=== PATIENT | female | born 1960 | race African-American/Black ===

== ENCOUNTER → 2016-10-17 | Outpatient (CLI) | payer BC | LOC: RAD 09:13 | PROVIDERS: ATTEND Specialist | DX: C90.00 Multiple myeloma not having achieved remission (principal) | CPT/HCPCS: 70553; A9577 ==

== ENCOUNTER → 2016-12-06 | Outpatient (CLI) | payer BC ==
--- NOTE | 2016-12-06 18:56 | XCELERA REPORT ---
[address] [address] Lower Extremity Venous Evaluation Name: RONY PERDOMO Age: 56 yrs Gender: Female : 1960 Patient Status: Preadmit Patient Location: Study Date: 12/06/2016 02:18 PM Procedure: Color flow and duplex imaging of the veins of the left lower extremity as well as the right Common Femoral vein. Reason For Study: LLE I82.449 Ordering Physician: RYANNE DELUCA Performed By: Leslee Hernandez Right Sided Venous Evaluation The right common femoral vein is fully compressible. Spontaneous and phasic flow is present in the right common femoral vein. Left Sided Venous Evaluation Abnormal vessel filling no compression or Colour flow from the Common Femoral vein to the Popliteal and Gastrocnemius vein.. Critical Findings Discussed withn Dr Deluca. Interpretation Summary Positive for acute and subacute DVT in the left lower extremity veins.. Extensive. The patient to go to Dr Deluca's office for treatment. : RYANNE DELUCA > Gigi Carlos
== END ==
LOC: SP 13:40
PROVIDERS: ATTEND Specialist
DX: I82.449 Acute embolism and thrombosis of unspecified tibial vein (principal)
CPT/HCPCS: 93971

== ENCOUNTER → 2017-01-15 | Outpatient (CLI) | payer BC | LOC: RAD 09:37 | PROVIDERS: ATTEND Specialist | DX: M54.5 Low back pain (principal); Z85.89 Personal history of malignant neoplasm of other organs and systems | CPT/HCPCS: 72070 ==

== ENCOUNTER 2017-03-29 07:49 | Outpatient (CLI) | payer BC, MEDICARE ==
[~2017-03-29 07:49] MED LIST: CARFILZOMIB IV PRN; DEXTROSE 5% IV PRN; NORMAL SALINE 250 ML IV PRN; WATER IV PRN
[2017-03-29 08:09] VITALS: BP 106/87
[2017-03-29 08:51] LABS: ABSOLUTE LYMPHOCYTES (AUTO) 0.9 10^3/uL (0.5-4.7); ABSOLUTE MONOCYTES (AUTO) 0.1 10^3/uL (0.1-1.4); ABSOLUTE NEUT (AUTO) 2.7 10^3/uL (1.7-8.2); BASOPHILS % (AUTO) 0.7 % (0-2); EOSINOPHILS % (AUTO) 0.7 % (0-6); HEMATOCRIT 31.1 % (36.0-47.0); HEMOGLOBIN 10.2 g/dL (12.0-15.5); HGB HCT DIFFERENCE -0.5; MEAN CORPUSCULAR HEMOGLOBIN 33.7 pg (27.0-33.4); MEAN CORPUSCULAR HGB CONC 32.7 g/dL (32.0-36.0); MEAN CORPUSCULAR VOLUME 103 fl (80-97); MONOCYTES % (AUTO) 3.9 % (3-13); RED BLOOD COUNT 3.02 10^6/uL (3.72-5.28); SEGMENTED NEUTROPHILS % (AUTO) 70.7 % (42-78); WHITE BLOOD COUNT 3.8 10^3/uL (4.0-10.5)
== END 2017-03-29 09:45 | disposition home or self-care (01) ==
LOC: II 07:49 → 5TH 08:00 → II 09:45
PROVIDERS: ATTEND Specialist
DX: Z51.11 Encounter for antineoplastic chemotherapy (principal); C90.00 Multiple myeloma not having achieved remission; D46.4 Refractory anemia, unspecified
CPT/HCPCS: 96409; 36415; 85025; J9047; 96413

== ENCOUNTER 2017-03-30 07:56 | Outpatient (CLI) | payer BC, MEDICARE ==
[2017-03-30 09:05] VITALS: BP 119/56
== END 2017-03-30 09:36 | disposition home or self-care (01) ==
LOC: II 07:56 → 5TH 07:58 → II 09:36
PROVIDERS: ATTEND Specialist
DX: Z51.11 Encounter for antineoplastic chemotherapy (principal); C90.00 Multiple myeloma not having achieved remission
CPT/HCPCS: 96413; 96360; J9047; 96409

== ENCOUNTER 2017-04-05 07:53 | Outpatient (CLI) | payer BC, MEDICARE ==
[2017-04-05 08:21] VITALS: BP 100/58
[2017-04-05 08:58] LABS: ABSOLUTE EOSINOPHILS # (AUTO) 0.1 10^3/uL (0.0-0.6); ABSOLUTE LYMPHOCYTES (AUTO) 0.5 10^3/uL (0.5-4.7); ABSOLUTE MONOCYTES (AUTO) 0.2 10^3/uL (0.1-1.4); ABSOLUTE NEUT (AUTO) 3.8 10^3/uL (1.7-8.2); BASOPHILS % (AUTO) 0.4 % (0-2); EOSINOPHILS % (AUTO) 1.5 % (0-6); HEMATOCRIT 32.7 % (36.0-47.0); HEMOGLOBIN 10.5 g/dL (12.0-15.5); HGB HCT DIFFERENCE -1.2; LYMPHOCYTES % (AUTO) 10.9 % (13-45); MEAN CORPUSCULAR HGB CONC 32.2 g/dL (32.0-36.0); MEAN CORPUSCULAR VOLUME 102 fl (80-97); MONOCYTES % (AUTO) 4.8 % (3-13); RED BLOOD COUNT 3.19 10^6/uL (3.72-5.28); RED CELL DISTRIBUTION WIDTH 19.1 % (11.5-14.0); SEGMENTED NEUTROPHILS % (AUTO) 82.4 % (42-78); WHITE BLOOD COUNT 4.6 10^3/uL (4.0-10.5)
== END 2017-04-05 09:43 | disposition home or self-care (01) ==
LOC: II 07:53 → 5TH 07:54 → II 09:43
PROVIDERS: ATTEND Specialist
DX: Z51.11 Encounter for antineoplastic chemotherapy (principal); C90.00 Multiple myeloma not having achieved remission
CPT/HCPCS: 96413; 36415; 85025; J9047; 96409

== ENCOUNTER 2017-04-06 07:53 | Outpatient (CLI) | payer BC, MEDICARE ==
[2017-04-06 08:26] VITALS: BP 127/73
== END 2017-04-06 09:36 | disposition home or self-care (01) ==
LOC: II 07:53 → 5TH 07:53 → II 09:36
PROVIDERS: ATTEND Specialist
DX: Z51.11 Encounter for antineoplastic chemotherapy (principal); C90.00 Multiple myeloma not having achieved remission
CPT/HCPCS: 96413; J9047; 96409

== ENCOUNTER → 2017-04-30 | Outpatient (CLI) | payer MEDICARE ==
--- NOTE | 2017-04-30 17:23 | RADIOLOGY REPORT (SQ) ---
EXAM DESCRIPTION: BONE SURVEY COMPLETE COMPLETED DATE/TIME: 04/30/2017 1:45 pm REASON FOR STUDY: MYELOMA C90.00 MULTIPLE MYELOMA NOT HAVING ACHIEVED REMISSION COMPARISON: Skeletal survey 03/17/2015, 08/31/2015 PET-CT 07/14/2016 TECHNIQUE: Images of the axial and proximal appendicular skeleton are obtained, along with lateral s kull and frontal chest films. LIMITATIONS: None. FINDINGS: AP CHEST: No bony findings. Lungs are clear. LATERAL SKULL: No worrisome bone lesions. AP BOTH HUMERI: No worrisome bone lesions. TWO-VIEW LUMBAR SPINE: No worrisome bone lesions. TWO-VIEW THORACIC SPINE: No worrisome bone lesions. TWO-VIEW CERVICAL SPINE: No worrisome bone lesions. Degenerative disc space loss of height at C5-6 AP PELVIS: No worrisome bone lesions. AP BOTH FEMURS: No worrisome bone lesions. OTHER: No other significant finding. IMPRESSION: NO WORRISOME BONE LESIONS. TECHNICAL DOCUMENTATION: JOB ID: [id number] [employer]- All Rights Reserved
== END ==
LOC: RAD 13:13
PROVIDERS: ATTEND Specialist
DX: C90.00 Multiple myeloma not having achieved remission (principal)
CPT/HCPCS: 77075

== ENCOUNTER → 2017-08-05 | Outpatient (CLI) | payer MEDICARE ==
--- NOTE | 2017-08-06 18:07 | RADIOLOGY REPORT (SQ) ---
EXAM DESCRIPTION: PET CT WHOLE BODY COMPLETED DATE/TIME: 08/05/2017 8:44 pm REASON FOR STUDY: MULTIPLE MYELOMA C90.00 MULTIPLE MYELOMA NOT HAVING ACHIEVED REMISSION COMPARISON: Skeletal survey 04/30/2017 PET-CT 07/14/2016 RADIONUCLIDE AND DOSE: 10.8 mCi F18 FDG The route of agent administration: Intravenous FASTING BLOOD SUGAR: 89 mg/dl CONTRAST TYPE AND DOSE: No CT contrast given. TECHNIQUE: Blood glucose level was verified. Above dose of FDG was injected intravenously. 2-D seg mented attenuation correction images were obtained through the entire body. Noncontrast CT images we re obtained for attenuation correction and fusion with emission images. CT images were performed wit hout oral or intravenous contrast and are not sensitive for parenchymal lesions. A series of overlap ping emission PET images were obtained. Images reviewed and manipulated at independent work station by the radiologist. Images stored on PACS. LIMITATIONS: None. FINDINGS: HEAD AND NECK: There is activity in the nasopharynx and bilateral pharyngeal tonsils lymph oid tissue, without discrete mass. Nasopharyngeal lymphoid tissue has SUV of 8. Bilateral pharyngea l tonsil activity ranges from 5.9-6.2 SUV. Multiple less than 5 mm short axis cervical hypermetabolic lymph nodes are present at the jugulodigas tric/ level 2 region with SUV ranging from 5 to 7.5. These are best shown on axial CT images 72-76. CHEST: No areas of abnormal metabolic activity in the chest. ABDOMEN AND PELVIS: There is increased activity without discrete mass along the gastric fundus and an trum, with SUV ranging from 6 to 6.6. LOWER EXTREMITIES: No areas of abnormal metabolic activity in the soft tissues of the lower extremiti es. BONES: No abnormal metabolic activity in the visualized skeleton. ADDITIONAL CT FINDINGS: Post cholecystectomy. OTHER: There is some activity in the tongue, vocal cords/larynx, bilateral forearms, and right thenar eminence likely related to motion after FDG injection. Liver background activity 2.1 SUV Blood pool background activity 1.7 SUV IMPRESSION: No skeletal activity worrisome for recurrent myeloma. Hypermetabolic bilateral cervical level 2 lymph nodes, hypermetabolic pharyngeal tonsils and nasophar yngeal lymphoid tissue Hypermetabolic gastric fundus and antrum TECHNICAL DOCUMENTATION: JOB ID: [id number]- All Rights Reserved
== END ==
LOC: RAD 17:43
PROVIDERS: ATTEND Internal Medicine Hematology & Oncology
DX: C90.00 Multiple myeloma not having achieved remission (principal)
CPT/HCPCS: 78816; A9552

== ENCOUNTER → 2017-08-13 | Outpatient (CLI) | payer MEDICARE ==
--- NOTE | 2017-08-17 09:09 | RADIOLOGY REPORT (SQ) ---
EXAM DESCRIPTION: MRI HEAD COMBO COMPLETED DATE/TIME: 08/13/2017 11:11 am REASON FOR STUDY: ABNORMAL FINDINGS ON DIAGNOSTIC IMAGING OF SKULL AND HEAD, NOT ELSEWHERE (R R93.0 ABNORMAL FINDINGS ON DX IMAGING OF SKULL AND HEAD, NEC C90.00 MULTIPLE MYELOMA NOT HAVING ACHIEVED REMISSION G50.1 ATYPICAL FACIAL PAIN COMPARISON: PET-CT 08/05/2017 MRI brain 10/17/2016 TECHNIQUE: Multiplanar imaging includes noncontrasted T1, T2, FLAIR, diffusion with ADC map and post gadolinium contrast T1 sequences. Images stored on PACS. CONTRAST TYPE AND DOSE: 15 mL Multihance. RENAL FUNCTION: GFR > 60. LIMITATIONS: None. FINDINGS: ANATOMY: No developmental anomalies. On axial T2 series 9, image 74, question redundant d istal parasellar ICA versus para clinoid ICA aneurysm. A [place] MRA exam is recommended fo r followup. Pituitary fossa normal. CSF SPACES: Normal in size and contour. No hemorrhage. CEREBRUM: Sulci and gyri normal in size and contour. Minimal spotty increased bifrontal and bipariet al white matter signal on FLAIR imaging, from minimal chronic small vessel ischemic change. No eviden ce of hemorrhage, mass, or extraaxial fluid collection. No abnormal enhancement post contrast. POSTERIOR FOSSA: No signal alteration. No hemorrhage. No edema, masses, or mass effect. Internal senait tory canals, cerebellopontine angles, mastoids normal. No enhancing lesions. No abnormal enhancement post contrast. DIFFUSION IMAGING: Negative for acute or subacute infarction. ORBITS: No masses. Globes normal. Stable mild bilateral proptosis compared to previous studies. PARANASAL SINUSES: No fluid levels. Mucosa normal. OTHER: There is fluid throughout the right middle ear cavity and mastoid air cells. Trace left masto id air cell fluid. Paranasal sinuses are clear. No definite lytic lesions are seen over the central skullbase, given history of myeloma IMPRESSION: Fluid throughout the right mastoid air cells and middle ear cavity. Minimal stable age-appropriate white matter disease. 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 Aneurysm could not entirely be excluded, [place] M[facility] exam recommended for followup. EVIDENCE OF ACUTE STROKE: NO. TECHNICAL DOCUMENTATION: JOB ID: [id number]- All Rights Reserved
== END ==
LOC: RAD 09:55
PROVIDERS: ATTEND Internal Medicine Hematology & Oncology
DX: C90.00 Multiple myeloma not having achieved remission (principal); R93.0 Abnormal findings on diagnostic imaging of skull and head, not elsewhere classified; G50.1 Atypical facial pain
CPT/HCPCS: 82565; 70553; A9577

== ENCOUNTER 2017-10-05 10:44 | Outpatient (CLI) | payer MEDICARE, MEDICAID ==
[2017-10-05] MEDS ORDERED: NORMAL SALINE 1000 ML 1,000 ML IV PRN (11:24)
[2017-10-05] MEDS ORDERED: ONDANSETRON HCL INJ/PF 4 MG/2 ML SDV IV PRN (11:25)
[2017-10-05 12:21] VITALS: BP 132/92
== END 2017-10-05 12:42 | disposition home or self-care (01) ==
LOC: II 10:44 → 5TH 11:30 → II 12:42
PROVIDERS: ATTEND Internal Medicine Hematology & Oncology
PROC: 3E0337Z Introduction of Electrolytic and Water Balance Substance into Peripheral Vein, Percutaneous Approach (ICD-10-PCS; principal; 2017-10-05)
DX: E86.0 Dehydration (principal); R11.0 Nausea; C90.00 Multiple myeloma not having achieved remission
CPT/HCPCS: 96375; 96360; J2405; 96361; 96374

== ENCOUNTER 2017-10-09 16:13 | Outpatient (CLI) | payer MEDICARE, MEDICAID ==
[2017-10-09 16:32] VITALS: BP 124/82
[2017-10-09] MEDS ORDERED: NORMAL SALINE 1000 ML 1,000 ML with POTASSIUM CHLORIDE 10 MEQ IV PRN ×2 (17:00)
== END 2017-10-09 17:54 | disposition home or self-care (01) ==
LOC: II 16:13 → 5TH 16:13 → II 17:02 → 5TH 17:02 → II 17:54
PROVIDERS: ATTEND Internal Medicine
PROC: 3E0337Z Introduction of Electrolytic and Water Balance Substance into Peripheral Vein, Percutaneous Approach (ICD-10-PCS; principal; 2017-10-09)
DX: E86.0 Dehydration (principal)
CPT/HCPCS: 96360; J3480; J7030

== ENCOUNTER 2017-10-16 14:12 | Inpatient (IN) | payer MEDICARE, MEDICAID ==
[2017-10-16] MEDS ORDERED: ONDANSETRON HCL INJ/PF 4 MG/2 ML SDV IV PRN (15:14)
[2017-10-16] MEDS ORDERED: ONDANSETRON 4 MG TAB.RAPDIS PO PRN (15:14)
[2017-10-16] MEDS ORDERED: ACETAMINOPHEN 325 MG TABLET PO PRN (15:14)
--- NOTE | 2017-10-16 16:22 | PDOC H&P ---
History of Present Illness Admission Date/PCP: 10/16/17 14:12 SRIRAM JIMENEZ MD Patient complains of: Diarrhea and abdominal pain. History of Present Illness: RONY PERDOMO is a 56 year old female with a history of multiple myeloma who has had problems with nausea vomiting and diarrhea since . She reports that she has had watery diarrhea since . She denies any melena. She has had mucus in her stools also. She does have abdominal pain associated with her bowel movements. It usually in the lower abdomen both right and left-sided. She also has pain in her right upper quadrant that is unrelated to eating but when she develops this pain does radiate into her right flank area. She also reports that she has had a foul smell to her stool and also has noticed grease floating on top of the water in the bowl. She has no history of pancreatic insufficiency and does not drink alcohol. The patient also has had nausea and vomiting but has been able to eat sometimes. The patient has not had any recent antibiotics but she has been immunosuppressed because of her multiple myeloma and has been on dexamethasone intermittently because of that. Patient also has a history of having a bone marrow transplant in 2013. 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 Endocrine Medical History: Reports: None Renal/ Medical History: Reports: None Malignancy Medical History: Reports: Other - Multiple myeloma Musculoskeltal Medical History: Reports: None Skin Medical History: Reports: None Psychiatric Medical History: Reports: Depression Hematology: Reports: Anemia, Other - Deep vein thrombosis December 2016 Infectious Medical History: Reports: Other Infectious History Note: Patient had shingles in the right T9-10 area Past Surgical History Past Surgical History: Reports: Cholecystectomy, Orthopedic Surgery, Tubal Ligation Social History Information Source: Patient Lives with: Family Smoking Status: Former Smoker Frequency of Alcohol Use: None Hx Recreational Drug Use: No Drugs: None Hx Prescription Drug Abuse: No - Advance Directive Resuscitation Status: Full Code Surrogate healthcare decision maker:: Her sister Caitlin is her healthcare power of insurance defense attorney Family History Family History: CAD, DM, Hypertension Family History: Mother at age 79 and had hypertension. Father at age 79 and had no chronic health problems. Parental Family History Reviewed: Yes Children Family History Reviewed: No Sibling(s) Family History Reviewed.: No Medication/Allergy Home Medications: Acyclovir [Acyclovir 400 mg Tablet] 400 mg PO DAILY 10/16/17 Apixaban [Eliquis 5 mg Tablet] 5 mg PO Q12 10/16/17 Diphenoxylate HCl/Atropine [Diphenoxylate-Atrop 2.5-0.025] 1 tab PO ASDIR PRN Duloxetine HCl [Cymbalta] 60 mg PO DAILY 10/16/17 Gabapentin [Neurontin 300 mg Capsule] 300 mg PO Q12 10/16/17 Oxycodone HCl [Oxycodone HCl 10 MG Tablet] 10 mg PO Q12HP PRN 10/16/17 Oxycodone HCl [Oxycontin Sr 40 mg Tablet] 40 mg PO Q12 10/16/17 Pantoprazole Sodium [Protonix] 40 mg PO Q12 10/16/17 Potassium Chloride [Klor-Con M20] 20 meq PO Q12 10/16/17 Allergies/Adverse Reactions: No Known Drug Allergies Allergy (Verified 03/24/14 10:16) Review of Systems Constitutional: ABSENT: chills, fever(s), headache(s), weight gain, weight loss Eyes: ABSENT: visual disturbances Ears: ABSENT: hearing changes Cardiovascular: ABSENT: chest pain, dyspnea on exertion, edema, orthropnea, palpitations Respiratory: ABSENT: cough, hemoptysis Gastrointestinal: PRESENT: as per HPI Genitourinary: ABSENT: dysuria, hematuria Musculoskeletal: ABSENT: joint swelling Integumentary: ABSENT: rash, wounds Neurological: ABSENT: abnormal gait, abnormal speech, confusion, dizziness, focal weakness, syncope Psychiatric: ABSENT: anxiety, depression Endocrine: ABSENT: cold intolerance, heat intolerance, polydipsia, polyuria Hematologic/Lymphatic: ABSENT: easy bleeding, easy bruising Physical Exam Vital Signs: Intake & Output 10/15/17 10/16/17 10/17/17 06:59 06:59 06:59 Weight 81.4 kg General appearance: PRESENT: no acute distress, well-developed, well-nourished Head exam: PRESENT: atraumatic, normocephalic Eye exam: PRESENT: conjunctiva pink, EOMI, PERRLA. ABSENT: scleral icterus Ear exam: PRESENT: normal external ear exam Mouth exam: PRESENT: moist, tongue midline Neck exam: ABSENT: carotid bruit, JVD, lymphadenopathy, thyromegaly Respiratory exam: PRESENT: clear to auscultation tai. ABSENT: rales, rhonchi, wheezes Cardiovascular exam: PRESENT: RRR. ABSENT: diastolic murmur, rubs, systolic murmur GI/Abdominal exam: PRESENT: normal bowel sounds, soft, tenderness - Diffuse tenderness worse in the right upper quadrant. ABSENT: distended, guarding, mass , organolmegaly, rebound Rectal exam: PRESENT: deferred Extremities exam: ABSENT: calf tenderness, clubbing, pedal edema Neurological exam: PRESENT: alert, awake, oriented to person, oriented to place , oriented to time, oriented to situation, CN II-XII grossly intact. ABSENT: motor sensory deficit Psychiatric exam: PRESENT: appropriate affect Skin exam: PRESENT: dry, intact, warm. ABSENT: cyanosis, rash Assessment & Plan - Diagnosis (1) Dehydration Is this a current diagnosis for this admission?: Yes Plan: Patient appears to be slightly dehydrated secondary to constant diarrhea along with nausea and vomiting. Will give IV fluids. (2) Colitis Is this a current diagnosis for this admission?: Yes Plan: Patient has been having diarrhea since . We will check a C. difficile toxin, stool cultures. We will empirically start on Cipro and Flagyl IV. If she continues to have diarrhea after this she will most likely need a colonoscopy. Given her diarrhea and the possibility of fat malabsorption is considered and we may do a 24 hour stool collection. (3) Abdominal pain Is this a current diagnosis for this admission?: Yes Plan: Patient is having pain both in her lower and upper abdomen. She reports that she has pain in the right upper quadrant that radiates through to her right CVA area. She has had shingles previously in this area with neuropathy however the possibility of a retained common bile duct stone is considered. She has had a cholecystectomy previously. Will get an MRCP to evaluate. If this is unrevealing and the pain continues will ask GI to evaluate when they are available. (4) Multiple myeloma Is this a current diagnosis for this admission?: Yes Plan: Patient is followed by Dr. jimenez. (5) DVT (deep venous thrombosis) Is this a current diagnosis for this admission?: Yes Plan: She was diagnosed in December 2016 with a DVT. She has been on Eliquis and we will continue with that. 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 She has been on Neurontin and Cymbalta. - Time Time Spent: 50 to 70 Minutes - Inpatient Certification Medical Necessity: Need For IV Fluids
[2017-10-16] MEDS ORDERED: OXYCODONE HCL IR 5 MG TABLET PO PRN (16:30)
[2017-10-16 17:06] LABS: ABSOLUTE EOSINOPHILS # (AUTO) 0.1 10^3/uL (0.0-0.6); ABSOLUTE MONOCYTES (AUTO) 0.5 10^3/uL (0.1-1.4); ABSOLUTE NEUT (AUTO) 3.6 10^3/uL (1.7-8.2); BASOPHILS % (AUTO) 0.9 % (0-2); EOSINOPHILS % (AUTO) 1.1 % (0-6); LYMPHOCYTES % (AUTO) 19.5 % (13-45); MEAN CORPUSCULAR HEMOGLOBIN 34.2 pg (27.0-33.4); MEAN CORPUSCULAR HGB CONC 33.4 g/dL (32.0-36.0); MEAN CORPUSCULAR VOLUME 103 fl (80-97); MONOCYTES % (AUTO) 9.1 % (3-13); PLATELET COUNT 318 10^3/uL (150-450); RED BLOOD COUNT 3.22 10^6/uL (3.72-5.28); RED CELL DISTRIBUTION WIDTH 17.3 % (11.5-14.0); SEGMENTED NEUTROPHILS % (AUTO) 69.4 % (42-78); TOTAL CELLS COUNTED % (AUTO) 100 %; WHITE BLOOD COUNT 5.1 10^3/uL (4.0-10.5)
[2017-10-16 17:39] LABS: AMYLASE 107 U/L (30-110); ANION GAP 14 (5-19); BLOOD UREA NITROGEN 11 mg/dL (7-20); CALCIUM 9.9 mg/dL (8.4-10.2); CARBON DIOXIDE 23 mmol/L (22-30); CHLORIDE 108 mmol/L (98-107); GLUCOSE 83 mg/dL (75-110); LIPASE 362.2 U/L (23-300); POTASSIUM 3.3 mmol/L (3.6-5.0); SODIUM 144.8 mmol/L (137-145)
[2017-10-16] MEDS ORDERED: ACYCLOVIR 200 MG CAPSULE PO ONE (18:00)
[2017-10-16] MEDS ORDERED: DULOXETINE HCL 30 MG CAPSULE.DR PO ONE (18:00)
[2017-10-16] MEDS ORDERED: CIPROFLOXACIN 400 MG/D5W RTU 400 MG/200 ML RTUPB IV SCH (18:00)
[2017-10-16] MEDS: METRONIDAZOLE 500 MG/NS RTU 100 ML IV SCH (18:51)
[2017-10-16] MEDS: LANSOPRAZOLE 30 MG TAB.RAP.DR PO SCH (18:52)
[2017-10-16] MEDS ORDERED: (PENDING PHARMACY ID) (Potassium Chloride [Klor-Con M20] 20 MEQ) PO SCH (22:00)
[2017-10-16] MEDS ORDERED: LANSOPRAZOLE 30 MG TAB.RAP.DR PO SCH (22:00)
[2017-10-16] MEDS: APIXABAN 5 MG TABLET PO SCH (22:34)
[2017-10-16] MEDS: GABAPENTIN 300 MG CAPSULE PO SCH (22:35)
[2017-10-16] MEDS: POTASSIUM CHLORIDE 10 MEQ TABLET.SA PO SCH (22:35)
[2017-10-16] MEDS: OXYCODONE HCL SR 40 MG TABLET PO SCH (22:35)
[2017-10-16] MEDS: FAMOTIDINE 20 MG TABLET PO SCH (22:35)
[2017-10-16] MEDS: CIPROFLOXACIN 400 MG/D5W RTU 400 MG/200 ML RTUPB IV SCH (22:36)
[2017-10-17] MEDS: METRONIDAZOLE 500 MG/NS RTU 100 ML IV SCH ×4 (00:14→18:09)
[2017-10-17] MEDS: LANSOPRAZOLE 30 MG TAB.RAP.DR PO SCH ×2 (05:43→18:09)
[2017-10-17 05:57] LABS: ANION GAP 10 (5-19); BLOOD UREA NITROGEN 9 mg/dL (7-20); CALCIUM 8.9 mg/dL (8.4-10.2); CARBON DIOXIDE 24 mmol/L (22-30); CHLORIDE 108 mmol/L (98-107); GLUCOSE 95 mg/dL (75-110); POTASSIUM 3.4 mmol/L (3.6-5.0); SODIUM 142.4 mmol/L (137-145)
--- NOTE | 2017-10-17 08:07 | PDOC CONSULTATION ---
Consultation Consult Date: 10/17/17 Consult reason:: Hematology/Oncology Consultation was requested for patient with Multiple Myeloma and vomiting with diarrhea History of Present Illness Admission Date/PCP: 10/16/17 14:12 SRIRAM GRACE MD History of Present Illness: RONY PERDOMO is a 56 year old female with a history of multiple myeloma who has had problems with nausea vomiting and diarrhea since . She reports that she has had watery diarrhea since . She denies any melena. She has had mucus in her stools also. She does have abdominal pain associated with her bowel movements. It usually in the lower abdomen both right and left-sided. She also has pain in her right upper quadrant that is unrelated to eating but when she develops this pain does radiate into her right flank area. She also reports that she has had a foul smell to her stool and also has noticed grease floating on top of the water in the bowl. She has no history of pancreatic insufficiency and does not drink alcohol. The patient also has had nausea and vomiting but has been able to eat sometimes. The patient has not had any recent antibiotics but she has been immunosuppressed because of her multiple myeloma and has been on dexamethasone intermittently because of that. Patient also has a history of having a bone marrow transplant in 2013. This morning, she states that she is feeling a little better. She did not eat much last night and vomited x 1. Her abdominal pain is improved. 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 Endocrine Medical History: Reports: None Renal/ Medical History: Reports: None Malignancy Medical History: Reports: Other - Multiple myeloma Musculoskeltal Medical History: Reports: None Skin Medical History: Reports: None Psychiatric Medical History: Reports: Depression Hematology: Reports: Anemia, Other - Deep vein thrombosis December 2016 Infectious Medical History: Reports: Other Past Surgical History Past Surgical History: Reports: Cholecystectomy, Orthopedic Surgery, Tubal Ligation Social History Lives with: Family Smoking Status: Former Smoker Frequency of Alcohol Use: None Hx Recreational Drug Use: No Drugs: None Hx Prescription Drug Abuse: No - Advance Directive Resuscitation Status: Full Code Family History Family History: CAD, DM, Hypertension Parental Family History Reviewed: Yes - Mother with RA. Father with CAD. Children Family History Reviewed: No Sibling(s) Family History Reviewed.: Yes - CAD, DM in sisters. Medication/Allergy Home Medications: Acyclovir [Acyclovir 400 mg Tablet] 400 mg PO DAILY 10/16/17 Apixaban [Eliquis 5 mg Tablet] 5 mg PO Q12 10/16/17 Diphenoxylate HCl/Atropine [Diphenoxylate-Atrop 2.5-0.025] 1 tab PO ASDIR PRN Duloxetine HCl [Cymbalta] 60 mg PO DAILY 10/16/17 Gabapentin [Neurontin 300 mg Capsule] 300 mg PO Q12 10/16/17 Oxycodone HCl [Oxycodone HCl 10 MG Tablet] 10 mg PO Q12HP PRN 10/16/17 Oxycodone HCl [Oxycontin Sr 40 mg Tablet] 40 mg PO Q12 10/16/17 Pantoprazole Sodium [Protonix] 40 mg PO Q12 10/16/17 Potassium Chloride [Klor-Con M20] 20 meq PO Q12 10/16/17 Allergies/Adverse Reactions: No Known Drug Allergies Allergy (Verified 03/24/14 10:16) Review of Systems Constitutional: ABSENT: fever(s), headache(s) Eyes: ABSENT: visual disturbances Ears: ABSENT: hearing changes Nose, Mouth, and Throat: ABSENT: sore throat Cardiovascular: ABSENT: chest pain, dyspnea on exertion Respiratory: PRESENT: cough Gastrointestinal: PRESENT: abdominal pain, diarrhea, nausea, vomiting Genitourinary: ABSENT: dysuria Neurological: ABSENT: confusion, numbness Psychiatric: PRESENT: depression. ABSENT: anxiety Physical Exam Vital Signs: Temp Pulse Resp BP Pulse Ox 98.7 F 93 16 124/66 100 10/16/17 23:49 10/16/17 23:49 10/16/17 23:49 10/16/17 23:49 10/16/17 23:49 Intake & Output 10/16/17 10/17/17 10/18/17 06:59 06:59 06:59 Intake Total 1650 Balance 1650 Weight 81.4 kg General appearance: PRESENT: no acute distress, well-developed, well-nourished Exam: Tall, female. Head exam: PRESENT: atraumatic Eye exam: PRESENT: EOMI, PERRLA Mouth exam: PRESENT: other - Thrush Throat exam: ABSENT: post pharyngeal erythema Neck exam: ABSENT: lymphadenopathy, tenderness Respiratory exam: PRESENT: clear to auscultation tai, unlabored Cardiovascular exam: PRESENT: RRR. ABSENT: systolic murmur GI/Abdominal exam: PRESENT: normal bowel sounds, soft. ABSENT: tenderness Extremities exam: ABSENT: pedal edema Musculoskeletal exam: PRESENT: ambulatory, full ROM Neurological exam: PRESENT: alert, awake, oriented to person, oriented to place , oriented to time, oriented to situation Psychiatric exam: PRESENT: appropriate affect. ABSENT: agitated Skin exam: PRESENT: normal color Results Laboratory Results: 10/16/17 16:35 10/17/17 04:32 10/16/17 10/16/17 10/16/17 16:35 16:35 22:24 WBC 5.1 RBC 3.22 L Hgb 11.0 L Hct 33.0 L MCV 103 H MCH 34.2 H MCHC 33.4 RDW 17.3 H Plt Count 318 Seg Neutrophils % 69.4 Lymphocytes % 19.5 Monocytes % 9.1 Eosinophils % 1.1 Basophils % 0.9 Absolute Neutrophils 3.6 Absolute Lymphocytes 1.0 Absolute Monocytes 0.5 Absolute Eosinophils 0.1 Absolute Basophils 0.0 Sodium 144.8 Potassium 3.3 L Chloride 108 H Carbon Dioxide 23 Anion Gap 14 BUN 11 Creatinine 0.78 Est GFR ( Amer) > 60 Est GFR (Non-Af Amer) > 60 Glucose 83 Calcium 9.9 Amylase 107 Lipase 362.2 H Stool for White Cells NO WBCs SEEN 10/17/17 04:32 WBC RBC Hgb Hct MCV MCH MCHC RDW Plt Count Seg Neutrophils % Lymphocytes % Monocytes % Eosinophils % Basophils % Absolute Neutrophils Absolute Lymphocytes Absolute Monocytes Absolute Eosinophils Absolute Basophils Sodium 142.4 Potassium 3.4 L Chloride 108 H Carbon Dioxide 24 Anion Gap 10 BUN 9 Creatinine 0.78 Est GFR ( Amer) > 60 Est GFR (Non-Af Amer) > 60 Glucose 95 Calcium 8.9 Amylase Lipase Stool for White Cells Assessment & Plan - Diagnosis (1) Multiple myeloma Is this a current diagnosis for this admission?: Yes Plan: She has been responding well to treatment thus far. This is currently on hold during this admission. (2) Dehydration Is this a current diagnosis for this admission?: Yes Plan: Improving with IV fluids. (3) Thrush, oral Is this a current diagnosis for this admission?: Yes Plan: I would start nystatin swish and swallow, or IV diflucan. She has recently been on antibiotics and steroids and has a supressed immune system due to her myeloma. (4) Pancreatitis Is this a current diagnosis for this admission?: Yes Plan: This appears to be mild. Await MRCP results. I will change her diet to clear liquids for now. Give her bowels a chance to rest. (5) Diarrhea Is this a current diagnosis for this admission?: Yes Plan: C. dif was negative. Await full stool cultures. Unsure if the Cipro will be of benefit given she had a course of Levaquin just prior to admission, but will await further studies. Continue supportive care. - Plan Summary Plan Summary: I will continue to follow her with you. Please call with any concerns.
--- NOTE | 2017-10-17 10:08 | RADIOLOGY REPORT (SQ) ---
EXAM DESCRIPTION: MRI ABDOMEN WITHOUT COMPLETED DATE/TIME: 10/16/2017 9:36 pm REASON FOR STUDY: need mrcp for abd pain COMPARISON: Head CT 2017. TECHNIQUE: Noncontrast MRCP. Source and MIP images reviewed. LIMITATIONS: None. FINDINGS: GALLBLADDER: Surgically absent. INTRAHEPATIC DUCTS: Nondilated. EXTRAHEPATIC DUCTS: Common duct is normal caliber. No dilatation of the pancreatic duct. No ductal filling defects noted. PANCREAS: Generally homogeneous, no gross mass or significant signal alteration. No surrounding infl ammatory changes or fluid. Pancreatic duct is normal. LIVER, SPLEEN, KIDNEYS, ADRENALS: No significant abnormality. VESSELS: No evidence of aneurysm. Grossly appropriate flow voids in the major vascular structures. LUNG BASES: Grossly clear. OTHER: No other significant finding. IMPRESSION: NORMAL HEPATOBILIARY SYSTEM. NO STONES OR COMMON DUCT ABNORMALITIES. TECHNICAL DOCUMENTATION: JOB ID: [id number] [employer]- All Rights Reserved
[2017-10-17] MEDS: APIXABAN 5 MG TABLET PO SCH (10:28)
[2017-10-17] MEDS: GABAPENTIN 300 MG CAPSULE PO SCH ×2 (10:28→21:32)
[2017-10-17] MEDS: FAMOTIDINE 20 MG TABLET PO SCH ×2 (10:28→21:32)
[2017-10-17] MEDS: CIPROFLOXACIN 400 MG/D5W RTU 400 MG/200 ML RTUPB IV SCH ×2 (10:28→21:32)
[2017-10-17] MEDS: POTASSIUM CHLORIDE 10 MEQ TABLET.SA PO SCH ×2 (10:28→21:32)
[2017-10-17] MEDS: OXYCODONE HCL SR 40 MG TABLET PO SCH ×2 (10:28→21:32)
[2017-10-17] MEDS: DULOXETINE HCL 30 MG CAPSULE.DR PO SCH (10:28)
[2017-10-17] MEDS: ACYCLOVIR 200 MG CAPSULE PO SCH (10:29)
--- NOTE | 2017-10-17 12:29 | PDOC CONSULTATION ---
Consultation Consult Date: 10/17/17 Attending physician:: CONCHITA JOY Consult reason:: 1. Change in bowel habits; diarrhea multiple times a day since the latter part of August. 2 abdominal pain History of Present Illness Admission Date/PCP: 10/16/17 14:12 SRIRAM GRACE MD History of Present Illness: I am asked to see this patient by the hospitalist service. Patient has had a cholecystectomy in the past and about the time of giving started to develop chronic diarrhea. It has not been able to be treated with the usual [id number]-[id number] medications. She does have multiple myeloma she is status post bone marrow transplant. This was done at [place] several years ago. She does remember diarrhea during her stay at that point in time. I do not have records but that sounds as though she had neutropenia and probably had neutropenic diarrhea. Possibly even typhylitis. She states that since that time she has had multiple episodes. She denies any blood. She does have accompanying abdominal pain both in the epigastric region as well as in the lower regions of her abdomen on both sides. There is otherwise no nausea or vomiting. She denies any family history of colitis. Patient denies any other surgeries. She is on chemotherapy for her multiple myeloma. She has been on that for a while and her diarrhea has just recently started. She is referred for possible GI workup. 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 Endocrine Medical History: Reports: None Renal/ Medical History: Reports: None Malignancy Medical History: Reports: Other - Multiple myeloma Musculoskeltal Medical History: Reports: None Skin Medical History: Reports: None Psychiatric Medical History: Reports: Depression Hematology: Reports: Anemia, Other - Deep vein thrombosis December 2016 Infectious Medical History: Reports: Other Past Surgical History Past Surgical History: Reports: Cholecystectomy, Orthopedic Surgery, Tubal Ligation Social History Lives with: Family Smoking Status: Former Smoker Frequency of Alcohol Use: None Hx Recreational Drug Use: No Drugs: None Hx Prescription Drug Abuse: No - Advance Directive Resuscitation Status: Full Code Family History Family History: CAD, DM, Hypertension Parental Family History Reviewed: Yes Children Family History Reviewed: Unknown Sibling(s) Family History Reviewed.: Unknown Medication/Allergy Home Medications: Acyclovir [Acyclovir 400 mg Tablet] 400 mg PO DAILY 10/16/17 Apixaban [Eliquis 5 mg Tablet] 5 mg PO Q12 10/16/17 Diphenoxylate HCl/Atropine [Diphenoxylate-Atrop 2.5-0.025] 1 tab PO ASDIR PRN Duloxetine HCl [Cymbalta] 60 mg PO DAILY 10/16/17 Gabapentin [Neurontin 300 mg Capsule] 300 mg PO Q12 10/16/17 Oxycodone HCl [Oxycodone HCl 10 MG Tablet] 10 mg PO Q12HP PRN 10/16/17 Oxycodone HCl [Oxycontin Sr 40 mg Tablet] 40 mg PO Q12 10/16/17 Pantoprazole Sodium [Protonix] 40 mg PO Q12 10/16/17 Potassium Chloride [Klor-Con M20] 20 meq PO Q12 10/16/17 Allergies/Adverse Reactions: No Known Drug Allergies Allergy (Verified 03/24/14 10:16) Review of Systems Constitutional: ABSENT: fever(s), headache(s), night sweats, weakness Eyes: ABSENT: visual disturbances Ears: ABSENT: hearing changes Nose, Mouth, and Throat: ABSENT: mouth pain, sore throat Cardiovascular: ABSENT: edema, orthropnea, palpitations Respiratory: ABSENT: dyspnea, hemoptysis Gastrointestinal: PRESENT: abdominal pain, diarrhea. ABSENT: coffee ground emesis, dysphagia, hematochezia Genitourinary: ABSENT: dysuria, hematuria Musculoskeletal: ABSENT: deformity, joint swelling Integumentary: ABSENT: lesions, pruritus Neurological: ABSENT: syncope, tingling, tremor(s), vertigo Endocrine: ABSENT: polydipsia, polyphagia, polyuria Hematologic/Lymphatic: ABSENT: easy bruising Physical Exam Vital Signs: Temp Pulse Resp BP Pulse Ox 97.9 F 72 16 112/68 99 10/17/17 08:41 10/17/17 08:41 10/17/17 08:41 10/17/17 08:41 10/17/17 08:41 Intake & Output 10/16/17 10/17/17 10/18/17 06:59 06:59 06:59 Intake Total 1650 Balance 1650 Weight 81.4 kg General appearance: PRESENT: no acute distress, well-developed, well-nourished Head exam: PRESENT: atraumatic, normocephalic Eye exam: PRESENT: EOMI, PERRLA. ABSENT: nystagmus, periorbital swelling, scleral icterus Mouth exam: PRESENT: moist Throat exam: ABSENT: tonsillar exudate, tonsillogmegaly Neck exam: ABSENT: meningismus, tenderness, thyromegaly Respiratory exam: PRESENT: symmetrical, unlabored. ABSENT: tachypnea, wheezes Cardiovascular exam: PRESENT: RRR, +S1, +S2 GI/Abdominal exam: PRESENT: soft. ABSENT: Mathur's sign, rebound, rigid, tenderness Gentrourinary exam: ABSENT: lesions Extremities exam: ABSENT: joint swelling Musculoskeletal exam: PRESENT: full ROM Neurological exam: PRESENT: oriented to time, oriented to situation, reflexes normal, CN II-XII grossly intact Psychiatric exam: PRESENT: appropriate affect Skin exam: PRESENT: normal color. ABSENT: mottled, pallor, urticaria, vesicles Results Laboratory Results: 10/16/17 16:35 10/17/17 04:32 10/16/17 10/16/17 10/16/17 16:35 16:35 22:24 WBC 5.1 RBC 3.22 L Hgb 11.0 L Hct 33.0 L MCV 103 H MCH 34.2 H MCHC 33.4 RDW 17.3 H Plt Count 318 Seg Neutrophils % 69.4 Lymphocytes % 19.5 Monocytes % 9.1 Eosinophils % 1.1 Basophils % 0.9 Absolute Neutrophils 3.6 Absolute Lymphocytes 1.0 Absolute Monocytes 0.5 Absolute Eosinophils 0.1 Absolute Basophils 0.0 Sodium 144.8 Potassium 3.3 L Chloride 108 H Carbon Dioxide 23 Anion Gap 14 BUN 11 Creatinine 0.78 Est GFR ( Amer) > 60 Est GFR (Non-Af Amer) > 60 Glucose 83 Calcium 9.9 Amylase 107 Lipase 362.2 H Stool for White Cells NO WBCs SEEN 10/17/17 04:32 WBC RBC Hgb Hct MCV MCH MCHC RDW Plt Count Seg Neutrophils % Lymphocytes % Monocytes % Eosinophils % Basophils % Absolute Neutrophils Absolute Lymphocytes Absolute Monocytes Absolute Eosinophils Absolute Basophils Sodium 142.4 Potassium 3.4 L Chloride 108 H Carbon Dioxide 24 Anion Gap 10 BUN 9 Creatinine 0.78 Est GFR ( Amer) > 60 Est GFR (Non-Af Amer) > 60 Glucose 95 Calcium 8.9 Amylase Lipase Stool for White Cells Impressions: Abdomen MRI 10/16/17 00:00 IMPRESSION: NORMAL HEPATOBILIARY SYSTEM. NO STONES OR COMMON DUCT ABNORMALITIES. Assessment & Plan - Diagnosis (1) Abdominal pain Is this a current diagnosis for this admission?: Yes Plan: patient could have possible peptic ulcer disease will need EGD Risks, benefits and alternatives are discussed with the patient in detail further recommendations to follow patient is on chronic pain medication she will need Propofol sedation (2) Anemia Is this a current diagnosis for this admission?: Yes Plan: likely due to her multiple myeloma will rule out GI bleed (3) Diarrhea Is this a current diagnosis for this admission?: Yes Plan: will need colonoscopy rule out for collagenous, lymphocytic or microscopic colitis Risks, benefits and alternatives are discussed with the patient in detail and she is willing to proceed. She is on Eliquis that needs to be stopped today. - Time Time Spent: 50 to 70 Minutes
[2017-10-17] MEDS ORDERED: POLYETHYLENE GLYCOL 3350 POWDER 17 GM/1 PACKET PO PRN (14:27)
--- NOTE | 2017-10-17 15:29 | PDOC PROGRESS REPORT ---
Subjective Progress Note for:: 10/17/17 Subjective:: Patient reports that she continues to have diarrhea but her abdominal pain has improved. Reason For Visit: DEHYDRATION,MULTIPLE MYELOMA Physical Exam Vital Signs: Temp Pulse Resp BP Pulse Ox 97.9 F 75 18 111/71 100 10/17/17 11:34 10/17/17 11:34 10/17/17 11:34 10/17/17 11:34 10/17/17 11:34 Intake & Output 10/16/17 10/17/17 10/18/17 06:59 06:59 06:59 Intake Total 1650 Balance 1650 Weight 81.4 kg General appearance: PRESENT: no acute distress Eye exam: PRESENT: conjunctiva pink. ABSENT: scleral icterus Mouth exam: PRESENT: moist, tongue midline Neck exam: ABSENT: JVD Respiratory exam: PRESENT: clear to auscultation tai. ABSENT: rales, rhonchi, wheezes Cardiovascular exam: PRESENT: RRR. ABSENT: diastolic murmur, rubs, systolic murmur GI/Abdominal exam: PRESENT: normal bowel sounds, soft. ABSENT: distended, guarding, mass, organolmegaly, rebound, tenderness Extremities exam: ABSENT: calf tenderness, clubbing, pedal edema Neurological exam: PRESENT: alert, awake, oriented to person, oriented to place , oriented to time, oriented to situation, CN II-XII grossly intact. ABSENT: motor sensory deficit Psychiatric exam: PRESENT: appropriate affect Skin exam: PRESENT: dry, intact, warm. ABSENT: cyanosis, rash Results Laboratory Results: 10/16/17 16:35 10/17/17 04:32 10/16/17 10/16/17 10/16/17 16:35 16:35 22:24 WBC 5.1 RBC 3.22 L Hgb 11.0 L Hct 33.0 L MCV 103 H MCH 34.2 H MCHC 33.4 RDW 17.3 H Plt Count 318 Seg Neutrophils % 69.4 Lymphocytes % 19.5 Monocytes % 9.1 Eosinophils % 1.1 Basophils % 0.9 Absolute Neutrophils 3.6 Absolute Lymphocytes 1.0 Absolute Monocytes 0.5 Absolute Eosinophils 0.1 Absolute Basophils 0.0 Sodium 144.8 Potassium 3.3 L Chloride 108 H Carbon Dioxide 23 Anion Gap 14 BUN 11 Creatinine 0.78 Est GFR ( Amer) > 60 Est GFR (Non-Af Amer) > 60 Glucose 83 Calcium 9.9 Amylase 107 Lipase 362.2 H Stool for White Cells NO WBCs SEEN 10/17/17 04:32 WBC RBC Hgb Hct MCV MCH MCHC RDW Plt Count Seg Neutrophils % Lymphocytes % Monocytes % Eosinophils % Basophils % Absolute Neutrophils Absolute Lymphocytes Absolute Monocytes Absolute Eosinophils Absolute Basophils Sodium 142.4 Potassium 3.4 L Chloride 108 H Carbon Dioxide 24 Anion Gap 10 BUN 9 Creatinine 0.78 Est GFR ( Amer) > 60 Est GFR (Non-Af Amer) > 60 Glucose 95 Calcium 8.9 Amylase Lipase Stool for White Cells Impressions: Abdomen MRI 10/16/17 00:00 IMPRESSION: NORMAL HEPATOBILIARY SYSTEM. NO STONES OR COMMON DUCT ABNORMALITIES. Assessment & Plan - Diagnosis (1) Dehydration Is this a current diagnosis for this admission?: Yes Plan: Secondary to diarrhea. This is improving. (2) Colitis Is this a current diagnosis for this admission?: Yes Plan: Patient has been having diarrhea since . C. difficile was negative. Stool cultures are pending. GI has evaluated the patient and will perform an upper and lower endoscopy. MRCP was unremarkable. Given her diarrhea and the possibility of fat malabsorption is considered and we may do a 24 hour stool collection. (3) Abdominal pain Is this a current diagnosis for this admission?: Yes Plan: Patient is having pain both in her lower and upper abdomen. She reports that she has pain in the right upper quadrant that radiates through to her right CVA area. She has had shingles previously in this area with neuropathy. The possibility of a retained common bile duct has been ruled out given the MRCP that is normal. GI has evaluated the patient and will perform an upper and lower endoscopy. (4) Multiple myeloma Is this a current diagnosis for this admission?: Yes Plan: Patient is followed by Dr. jimenez. (5) DVT (deep venous thrombosis) Is this a current diagnosis for this admission?: Yes Plan: She was diagnosed in December 2016 with a DVT. She has been on Eliquis. Will stop that in anticipation of endoscopy. Will start after the endoscopies are finished (6) Bone marrow replaced by transplant Is this a current diagnosis for this admission?: Yes (7) Anemia Is this a current diagnosis for this admission?: Yes (8) Neuropathy Is this a current diagnosis for this admission?: Yes Plan: Patient has neuropathic pain in the right T9-10 area. She has been on Neurontin and Cymbalta. - Time Time Spent with patient: 25-34 minutes - Inpatient Certification Medical Necessity: Need For IV Fluids, Need for IV Antibiotics
[2017-10-17] MEDS ORDERED: BISACODYL 5 MG TABEC PO ONE ×2 (18:00→21:00)
[2017-10-18] MEDS: METRONIDAZOLE 500 MG/NS RTU 100 ML IV SCH ×4 (00:14→18:31)
[2017-10-18] MEDS: NORMAL SALINE 1000 ML 1,000 ML IV PRN ×2 (02:27→18:31)
[2017-10-18 04:32] LABS: ABSOLUTE EOSINOPHILS # (AUTO) 0.1 10^3/uL (0.0-0.6); ABSOLUTE LYMPHOCYTES (AUTO) 0.5 10^3/uL (0.5-4.7); ABSOLUTE MONOCYTES (AUTO) 0.3 10^3/uL (0.1-1.4); ABSOLUTE NEUT (AUTO) 2.6 10^3/uL (1.7-8.2); BASOPHILS % (AUTO) 0.6 % (0-2); HEMATOCRIT 26.7 % (36.0-47.0); LYMPHOCYTES % (AUTO) 14.2 % (13-45); MEAN CORPUSCULAR HEMOGLOBIN 34.8 pg (27.0-33.4); MEAN CORPUSCULAR HGB CONC 33.7 g/dL (32.0-36.0); MEAN CORPUSCULAR VOLUME 103 fl (80-97); MONOCYTES % (AUTO) 8.6 % (3-13); PLATELET COUNT 218 10^3/uL (150-450); RED BLOOD COUNT 2.58 10^6/uL (3.72-5.28); RED CELL DISTRIBUTION WIDTH 16.9 % (11.5-14.0); SEGMENTED NEUTROPHILS % (AUTO) 74.6 % (42-78); TOTAL CELLS COUNTED % (AUTO) 100 %; WHITE BLOOD COUNT 3.5 10^3/uL (4.0-10.5)
[2017-10-18 04:42] LABS: ANION GAP 7 (5-19); BLOOD UREA NITROGEN 3 mg/dL (7-20); CALCIUM 7.7 mg/dL (8.4-10.2); CARBON DIOXIDE 27 mmol/L (22-30); CHLORIDE 108 mmol/L (98-107); GLUCOSE 94 mg/dL (75-110); POTASSIUM 3.8 mmol/L (3.6-5.0); SODIUM 141.6 mmol/L (137-145)
[2017-10-18] MEDS: LANSOPRAZOLE 30 MG TAB.RAP.DR PO SCH ×2 (05:09→18:31)
[2017-10-18] MEDS ORDERED: PROPOFOL INJ 200 MG/20 ML VIAL IV ONE ×2 (09:08→10:17)
[2017-10-18] MEDS ORDERED: MIDAZOLAM 2 MG/2 ML INJ ONE (09:08)
[2017-10-18] MEDS ORDERED: FLUCONAZOLE 200 MG/NS RTU 100 ML IV SCH (10:00)
[2017-10-18] MEDS ORDERED: PROMETHAZINE HCL INJ 25 MG/1 ML VIAL IV PRN (10:09)
[2017-10-18] MEDS ORDERED: MEPERIDINE HCL/PF INJ 25 MG/1 ML DISP.SYRIN IV PRN (10:09)
[2017-10-18] MEDS ORDERED: DIPHENHYDRAMINE HCL 50 MG/ML VIAL IV PRN (10:09)
[2017-10-18] MEDS ORDERED: ONDANSETRON HCL INJ/PF 4 MG/2 ML SDV IV PRN (10:09)
[2017-10-18] MEDS ORDERED: OXYCODONE-ACETAMINOPHEN 5-325 MG TABLET PO PRN (10:09)
--- NOTE | 2017-10-18 10:48 | PDOC PROGRESS REPORT ---
Subjective Progress Note for:: 10/18/17 Subjective:: Patient reports less diarrhea and less abdominal pain today. The patient had her upper and lower endoscopy this morning with GI and no abnormalities were found. Reason For Visit: DEHYDRATION,MULTIPLE MYELOMA Physical Exam Vital Signs: Temp Pulse Resp BP Pulse Ox 98.2 F 78 15 110/67 100 10/18/17 08:43 10/18/17 08:43 10/18/17 08:43 10/18/17 08:43 10/18/17 08:43 Intake & Output 10/17/17 10/18/17 10/19/17 06:59 06:59 06:59 Intake Total 1650 3237 Balance 1650 3237 Weight 81.4 kg 81.4 kg General appearance: PRESENT: no acute distress Eye exam: PRESENT: conjunctiva pink. ABSENT: scleral icterus Mouth exam: PRESENT: moist, tongue midline Neck exam: ABSENT: JVD Respiratory exam: PRESENT: clear to auscultation tai. ABSENT: rales, rhonchi, wheezes Cardiovascular exam: PRESENT: RRR. ABSENT: diastolic murmur, rubs, systolic murmur GI/Abdominal exam: PRESENT: normal bowel sounds, soft. ABSENT: distended, guarding, mass, organolmegaly, rebound, tenderness Extremities exam: ABSENT: calf tenderness, clubbing, pedal edema Neurological exam: PRESENT: alert, awake, oriented to person, oriented to place , oriented to time, oriented to situation, CN II-XII grossly intact. ABSENT: motor sensory deficit Psychiatric exam: PRESENT: appropriate affect Skin exam: PRESENT: dry, intact, warm. ABSENT: cyanosis, rash Results Laboratory Results: 10/18/17 04:01 10/18/17 04:01 10/18/17 10/18/17 04:01 04:01 WBC 3.5 L RBC 2.58 L Hgb 9.0 L Hct 26.7 L MCV 103 H MCH 34.8 H MCHC 33.7 RDW 16.9 H Plt Count 218 Seg Neutrophils % 74.6 Lymphocytes % 14.2 Monocytes % 8.6 Eosinophils % 2.0 Basophils % 0.6 Absolute Neutrophils 2.6 Absolute Lymphocytes 0.5 Absolute Monocytes 0.3 Absolute Eosinophils 0.1 Absolute Basophils 0.0 Sodium 141.6 Potassium 3.8 Chloride 108 H Carbon Dioxide 27 Anion Gap 7 BUN 3 L Creatinine 0.67 Est GFR ( Amer) > 60 Est GFR (Non-Af Amer) > 60 Glucose 94 Calcium 7.7 L Impressions: Abdomen MRI 10/16/17 00:00 IMPRESSION: NORMAL HEPATOBILIARY SYSTEM. NO STONES OR COMMON DUCT ABNORMALITIES. Assessment & Plan - Diagnosis (1) Dehydration Is this a current diagnosis for this admission?: Yes Plan: Secondary to diarrhea. This is improving. (2) Colitis Is this a current diagnosis for this admission?: Yes Plan: Patient has been having diarrhea since . C. difficile was negative. Stool cultures are pending. Patient had endoscopy this morning which showed no abnormalities. GI suggests that this may be a circulatory problem and has recommended a trial of Sandostatin (3) Abdominal pain Is this a current diagnosis for this admission?: Yes Plan: This has improved (4) Multiple myeloma Is this a current diagnosis for this admission?: Yes Plan: Patient is followed by Dr. jimenez. (5) DVT (deep venous thrombosis) Is this a current diagnosis for this admission?: Yes Plan: She was diagnosed in December 2016 with a DVT. She has been on Eliquis. Will restart now that she has finished her endoscopies (6) Bone marrow replaced by transplant Is this a current diagnosis for this admission?: Yes (7) Anemia Is this a current diagnosis for this admission?: Yes (8) Neuropathy Is this a current diagnosis for this admission?: Yes Plan: Patient has neuropathic pain in the right T9-10 area. She has been on Neurontin and Cymbalta. - Time Time Spent with patient: 25-34 minutes - Inpatient Certification Medical Necessity: Need For IV Fluids
--- NOTE | 2017-10-18 10:55 | Operative Report ---
Operative Report DATE OF SURGERY: 10/18/17 Operative Report: The risks, benefits and alternatives of the procedure including risks of bleeding, perforation requiring surgery are explained to the patient in detail and informed consent was obtained. Patient was taken to to the operating room and placed in the left, lateral decubital position. Timeout was called. Propofol medications administered. A rectal examination is done which did not reveal any masses, tears or fissures. An Olympus videoscope was inserted into the patient's rectum. It is carefully advanced all the way to the cecum. The cecum was identified by the usual anatomical landmarks including the ileocecal valve as well as the appendiceal office. Photodocumentation was obtained. Patient has a very redundant colon. Prep is not as good. The scope was then sequentially pulled back via the various segments of the colon including the ascending colon, hepatic flexure, transverse colon, splenic pressure, descending colon finding to the rectosigmoid portions of the colon. Retroflexion maneuvers performed. The risks benefits and alternatives of the procedure explained to the patient in detail and informed consent is obtained.A GIF Olympus video scope was inserted into the patient's mouth and hypopharynx, the esophagus is identified intubated and insufflated ,the scope was then advanced through the esophagus stomach and duodenum, retroflexion maneuver is done, the esophagus stomach and first and second portions of the duodenum examined PREOPERATIVE DIAGNOSIS: Chronic diarrhea, change of bowel habits. Abdominal pain POSTOPERATIVE DIAGNOSIS: Right side colon Inflammation status post biopsy. Internal hemorrhoids. Hiatal hernia. Gastritis status post biopsy rule out Helicobacter pylori OPERATION: Colonoscopy with biopsy. EGD with biopsy SURGEON: CONCHITA JOY ANESTHESIA: LMAC TISSUE REMOVED OR ALTERED: As noted above. COMPLICATIONS: None. ESTIMATED BLOOD LOSS: None. INTRAOPERATIVE FINDINGS: As noted above. PROCEDURE: Patient tolerated procedure well. No immediate postprocedure complications are noted. Patient discharged back to her room in good condition. Resume regular diet. Resume regular activity level. If no further issues should be able to be discharged. We will see as outpatient.
[2017-10-18] MEDS: CIPROFLOXACIN 400 MG/D5W RTU 400 MG/200 ML RTUPB IV SCH ×2 (11:20→21:23)
[2017-10-18] MEDS: DULOXETINE HCL 30 MG CAPSULE.DR PO SCH (12:35)
[2017-10-18] MEDS: ACYCLOVIR 200 MG CAPSULE PO SCH (12:35)
[2017-10-18] MEDS: FAMOTIDINE 20 MG TABLET PO SCH ×2 (12:36→21:23)
[2017-10-18] MEDS: OXYCODONE HCL SR 40 MG TABLET PO SCH ×2 (12:45→21:23)
[2017-10-18] MEDS: POTASSIUM CHLORIDE 10 MEQ TABLET.SA PO SCH ×2 (12:46→21:23)
[2017-10-18] MEDS: GABAPENTIN 300 MG CAPSULE PO SCH ×2 (12:47→21:23)
[2017-10-18] MEDS: OCTREOTIDE ACETATE INJ/PF 100 MCG/1 ML SDV SUBCUT SCH ×2 (15:03→21:23)
[2017-10-18] MEDS ORDERED: APIXABAN 5 MG TABLET PO SCH (18:00)
[2017-10-19] MEDS: METRONIDAZOLE 500 MG/NS RTU 100 ML IV SCH ×2 (00:43→05:59)
[2017-10-19] MEDS: LANSOPRAZOLE 30 MG TAB.RAP.DR PO SCH (05:59)
[2017-10-19] MEDS: OCTREOTIDE ACETATE INJ/PF 100 MCG/1 ML SDV SUBCUT SCH (05:59)
[2017-10-19 07:15] LABS: ANION GAP 9 (5-19); CALCIUM 7.5 mg/dL (8.4-10.2); CARBON DIOXIDE 27 mmol/L (22-30); CHLORIDE 109 mmol/L (98-107); GLUCOSE 102 mg/dL (75-110); POTASSIUM 4.2 mmol/L (3.6-5.0); SODIUM 145.3 mmol/L (137-145)
[2017-10-19 07:17] LABS: BLOOD UREA NITROGEN < 2 mg/dL (7-20)
[2017-10-19 08:49] VITALS: BP 112/68
--- NOTE | 2017-10-19 09:51 | PDOC PROGRESS REPORT ---
Subjective Progress Note for:: 10/19/17 Subjective:: patient tolerated her procedure well biopsies obtained in the right side of the colon to exclude for possible lymphocytic, collagenous colitis could be small bowel etiology ? trial of possible Sandostatin would help will wait on biopsies for now Reason For Visit: DEHYDRATION,MULTIPLE MYELOMA Physical Exam Vital Signs: Temp Pulse Resp BP Pulse Ox 98.0 F 70 16 112/68 100 10/19/17 08:49 10/19/17 08:49 10/19/17 08:49 10/19/17 08:49 10/19/17 08:49 Intake & Output 10/18/17 10/19/17 10/20/17 06:59 06:59 06:59 Intake Total 3237 6590 Output Total 300 Balance 3237 6290 Weight 81.4 kg 81.4 kg General appearance: PRESENT: no acute distress, well-developed, well-nourished Head exam: PRESENT: atraumatic, normocephalic Eye exam: PRESENT: EOMI, PERRLA. ABSENT: periorbital swelling, scleral icterus Mouth exam: PRESENT: moist Throat exam: ABSENT: tonsillar exudate, tonsillogmegaly Neck exam: ABSENT: meningismus, tenderness, thyromegaly Respiratory exam: PRESENT: symmetrical, unlabored. ABSENT: tachypnea, wheezes Cardiovascular exam: PRESENT: RRR, +S1, +S2 GI/Abdominal exam: PRESENT: soft. ABSENT: rebound, rigid, tenderness Extremities exam: ABSENT: joint swelling Musculoskeletal exam: PRESENT: full ROM Neurological exam: PRESENT: oriented to time, oriented to situation, CN II-XII grossly intact Focused psych exam: ABSENT: restlessness Skin exam: PRESENT: normal color. ABSENT: mottled, urticaria, vesicles Results Laboratory Results: 10/18/17 04:01 10/19/17 06:01 10/19/17 06:01 Sodium 145.3 H Potassium 4.2 Chloride 109 H Carbon Dioxide 27 Anion Gap 9 BUN < 2 L Creatinine 0.73 Est GFR ( Amer) > 60 Est GFR (Non-Af Amer) > 60 Glucose 102 Calcium 7.5 L 10/16/17 22:24 Stool - Stool - Final 10/16/17 22:24 Stool - Stool Stool Culture - Final C.albicans/C.dubliniensis Impressions: Abdomen MRI 01/02/18 00:00 IMPRESSION: NORMAL HEPATOBILIARY SYSTEM. NO STONES OR COMMON DUCT ABNORMALITIES. Assessment & Plan - Diagnosis (1) Abdominal pain Is this a current diagnosis for this admission?: Yes (2) Anemia Is this a current diagnosis for this admission?: Yes (3) Diarrhea Is this a current diagnosis for this admission?: Yes Plan: ? possible small bowel etiology will wait on biopsies no gross colitis in the colon to suggest ulceration colitis no infectious colitis is noted I spoke with Dr Laughlin , sandostatin may be useful but would be hard to continue as an outpatient - Time Time Spent with patient: 15-24 minutes
--- NOTE | 2017-10-19 13:53 | PDOC DISCHARGE SUMMARY ---
General - Admit/Disc Date/PCP Admission Date/Primary Care Provider: 10/16/17 14:12 SRIRAM GRACE MD Discharge Date: 10/19/17 - Discharge Diagnosis (1) Dehydration Is this a current diagnosis for this admission?: Yes Summary: Secondary to diarrhea. (2) Colitis Is this a current diagnosis for this admission?: Yes Summary: The presumptive diagnosis of colitis was made because of her continuous diarrhea. The patient had a a colonoscopy that did not show any obvious pathology however biopsies are pending for possible collagenous colitis. She did improve with Cipro and Flagyl and will continue with 10 additional days of Cipro and Flagyl. The possibility of secretory diarrhea is considered by GI and if this is the case that she may benefit from Sandostatin injections. However we will hold off on that for now until the biopsy results are known. She did receive a dose here in the hospital and tolerated it well. (3) Abdominal pain Is this a current diagnosis for this admission?: Yes Summary: Resolved with antibiotics. 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 Is this a current diagnosis for this admission?: Yes (7) Anemia Is this a current diagnosis for this admission?: Yes (8) Neuropathy Is this a current diagnosis for this admission?: Yes - Additional Information Resuscitation Status: Full Code Discharge Diet: As Tolerated, Regular Discharge Activity: Activity As Tolerated Prescriptions: Ciprofloxacin HCl [Cipro 500 mg Tablet] 500 mg PO BID #20 tablet Metronidazole [Flagyl 500 mg Tablet] 500 mg PO TID #30 tablet Home Medications: Acyclovir [Acyclovir 400 mg Tablet] 400 mg PO DAILY 10/16/17 Apixaban [Eliquis 5 mg Tablet] 5 mg PO Q12 10/16/17 Diphenoxylate HCl/Atropine [Diphenoxylate-Atrop 2.5-0.025] 1 tab PO ASDIR PRN Duloxetine HCl [Cymbalta] 60 mg PO DAILY 10/16/17 Gabapentin [Neurontin 300 mg Capsule] 300 mg PO Q12 10/16/17 Oxycodone HCl [Oxycodone HCl 10 MG Tablet] 10 mg PO Q12HP PRN 01/02/18 Oxycodone HCl [Oxycontin Sr 40 mg Tablet] 40 mg PO Q12 10/16/17 Pantoprazole Sodium [Protonix] 40 mg PO Q12 10/16/17 Potassium Chloride [Klor-Con M20] 20 meq PO Q12 10/16/17 Ciprofloxacin HCl [Cipro 500 mg Tablet] 500 mg PO BID #20 tablet 10/19/17 Metronidazole [Flagyl 500 mg Tablet] 500 mg PO TID #30 tablet 10/19/17 History of Present Illness History of Present Illness: RONY PERDOMO is a 56 year old female with a history of multiple myeloma who has had problems with nausea vomiting and diarrhea since . She reports that she has had watery diarrhea since . She denies any melena. She has had mucus in her stools also. She does have abdominal pain associated with her bowel movements. It usually in the lower abdomen both right and left-sided. She also has pain in her right upper quadrant that is unrelated to eating but when she develops this pain does radiate into her right flank area. She also reports that she has had a foul smell to her stool and also has noticed grease floating on top of the water in the bowl. She has no history of pancreatic insufficiency and does not drink alcohol. The patient also has had nausea and vomiting but has been able to eat sometimes. The patient has not had any recent antibiotics but she has been immunosuppressed because of her multiple myeloma and has been on dexamethasone intermittently because of that. Patient also has a history of having a bone marrow transplant in 2013. Hospital Course Hospital Course: 56-year-old female admitted with diarrhea secondary to uncertain etiology. The presumptive diagnosis initially was colitis and she was started on Cipro and Flagyl. The patient had improvement in her diarrhea but continues to have loose bowel movements. Patient was evaluated by GI who performed an upper and lower endoscopy with no obvious etiology found. And we will continue with 10 more days of antibiotics. the biopsies are pending and the patient could still have collagenous colitis. The possibility of secretory diarrhea is considered. If that is the case she might benefit from Sandostatin injections. She was given Sandostatin here in the hospital and tolerated it well. Will await the biopsy results before deciding whether or not she would benefit from Sandostatin. The possibility of a small bowel etiology is considered however will await the results of the biopsy. Patient will be discharged home on 10 additional days of Cipro and Flagyl and follow-up with her oncologist in 1 week. Physical Exam Vital Signs: Temp Pulse Resp BP Pulse Ox 98.0 F 70 16 112/68 100 10/19/17 10:08 10/19/17 10:08 10/19/17 10:08 10/19/17 10:08 10/19/17 10:08 Intake & Output 10/18/17 10/19/17 10/20/17 06:59 06:59 06:59 Intake Total 3237 6590 Output Total 300 Balance 3237 6290 Weight 81.4 kg 81.4 kg General appearance: PRESENT: no acute distress Mouth exam: PRESENT: moist, tongue midline Neck exam: ABSENT: JVD Respiratory exam: PRESENT: clear to auscultation tai. ABSENT: rales, rhonchi, wheezes Cardiovascular exam: PRESENT: RRR. ABSENT: diastolic murmur, rubs, systolic murmur GI/Abdominal exam: PRESENT: normal bowel sounds, soft. ABSENT: distended, guarding, mass, organolmegaly, rebound, tenderness Extremities exam: ABSENT: calf tenderness, clubbing, pedal edema Neurological exam: PRESENT: alert, awake, oriented to person, oriented to place , oriented to time, oriented to situation, CN II-XII grossly intact. ABSENT: motor sensory deficit Psychiatric exam: PRESENT: appropriate affect Skin exam: PRESENT: dry, intact, warm. ABSENT: cyanosis, rash Results Laboratory Results: 10/18/17 04:01 10/19/17 06:01 10/19/17 06:01 Sodium 145.3 H Potassium 4.2 Chloride 109 H Carbon Dioxide 27 Anion Gap 9 BUN < 2 L Creatinine 0.73 Est GFR ( Amer) > 60 Est GFR (Non-Af Amer) > 60 Glucose 102 Calcium 7.5 L 10/16/17 22:24 Stool - Stool - Final 10/16/17 22:24 Stool - Stool Stool Culture - Final C.albicans/C.dubliniensis Impressions: Abdomen MRI 10/16/17 00:00 IMPRESSION: NORMAL HEPATOBILIARY SYSTEM. NO STONES OR COMMON DUCT ABNORMALITIES. Qualifiers PATEINT BEING DISCHARGED WITH ANY OF THE FOLLOWING DIAGNOSIS?: No Plan Discharge Plan: Discharged to home. Follow-up with oncologist 1 week. Time Spent: Less than 30 Minutes
--- NOTE | 2017-10-19 15:12 | Physician Advisory Note ---
Physician Advisor ProgressNote .: [facility] I have reviewed the medical record for this patient. Physician Advisor Statement: Please consider documentin. "Acute bilat lower quadrant abd pain, likely due to " (coders aren't allowed to assume causality) Thanks! CK
== END 2017-10-19 11:00 | disposition home or self-care (01) | DRG 392 ==
LOC: 5 14:12
PROVIDERS: ADMIT Internal Medicine; ATTEND Internal Medicine Hematology & Oncology
PROC: 0DBF8ZX Excision of Right Large Intestine, Via Natural or Artificial Opening Endoscopic, Diagnostic (ICD-10-PCS; principal; 2017-10-18 09:30)
PROC: 0DB78ZX Excision of Stomach, Pylorus, Via Natural or Artificial Opening Endoscopic, Diagnostic (ICD-10-PCS; 2017-10-18 09:30)
DX: K52.9 Noninfective gastroenteritis and colitis, unspecified (principal); C90.00 Multiple myeloma not having achieved remission; B37.0 Candidal stomatitis; B02.23 Postherpetic polyneuropathy; Z94.81 Bone marrow transplant status; E86.0 Dehydration; G43.909 Migraine, unspecified, not intractable, without status migrainosus; F32.9 Major depressive disorder, single episode, unspecified; R10.11 Right upper quadrant pain; D64.9 Anemia, unspecified; K44.9 Diaphragmatic hernia without obstruction or gangrene; K29.70 Gastritis, unspecified, without bleeding; K64.8 Other hemorrhoids; Z98.51 Tubal ligation status; Z87.891 Personal history of nicotine dependence; Z83.3 Family history of diabetes mellitus; Z82.49 Family history of ischemic heart disease and other diseases of the circulatory system; Z86.718 Personal history of other venous thrombosis and embolism; Z90.49 Acquired absence of other specified parts of digestive tract; Z79.899 Other long term (current) drug therapy
CPT/HCPCS: 36415; 43239; 45380; 74181; 80048; 813; 82150; 83690; 85025; 87045; 87205; 87493; 88305; 88342; 89055; J0744; J1450; J2250; J2354; J2704; J3490; J7030

== ENCOUNTER 2017-10-23 05:36 | Emergency (ER) | payer MEDICARE, MEDICAID ==
--- NOTE | 2017-10-23 07:43 | ER Document Report ---
ED GI Bleed / Rectal Pain - General Chief Complaint: Bloody Stools Stated Complaint: BLOOD IN STOOL Time Seen by Provider: 10/23/17 07:08 Notes: 56-year-old pleasant female patient to the emergency department chief complaint of blood in stool. Patient was admitted to the hospital last week for colitis/ diarrhea. Started on Flagyl and Cipro. Began having some blood in her stool today. No major issues other than bloody stool. Does have some lower abdominal cramping. On chemotherapy. Scheduled for chemo at 830 this morning. TRAVEL OUTSIDE OF THE [place] IN LAST 30 DAYS: No - HPI Patient complains to provider of: Bright red bld from rect. Timing/Duration: Intermittent Quality of pain: Cramping Severity of symptoms: Moderate Pain Level: 1 Emesis description: Blood tinged, Bright red blood Rectal bleeding: Blood mixed w/ stool Associated symptoms: Abdominal pain Exacerbated by: Denies Relieved by: Denies - Related Data Allergies/Adverse Reactions: No Known Drug Allergies Allergy (Verified 03/24/14 10:16) Past Medical History - General Information source: Patient - Social History Smoking Status: Never Smoker Frequency of alcohol use: None Drug Abuse: None Lives with: Family Family History: CAD, DM, Hypertension Pulmonary Medical History: Denies: Hx Tuberculosis Neurological Medical History: Reports: Hx Migraine Malignancy Medical History: Reports: Other - Multiple myeloma GI Medical History: Reports: None Psychiatric Medical History: Reports: Hx Depression Past Surgical History: Reports: Hx Cholecystectomy, Hx Orthopedic Surgery, Hx Tubal Ligation - Immunizations Hx Diphtheria, Pertussis, Tetanus Vaccination: Yes Review of Systems - Review of Systems Constitutional: No symptoms reported EENT: No symptoms reported Cardiovascular: No symptoms reported Respiratory: No symptoms reported Gastrointestinal: Abdominal pain, Diarrhea, Blood streaked bowels Genitourinary: No symptoms reported Female Genitourinary: No symptoms reported Musculoskeletal: No symptoms reported Skin: No symptoms reported Hematologic/Lymphatic: No symptoms reported Neurological/Psychological: No symptoms reported Physical Exam - Vital signs Vitals: Temp Pulse Resp BP Pulse Ox 98.2 F 98 18 129/89 H 98 10/23/17 05:41 10/23/17 05:41 10/23/17 05:41 10/23/17 05:41 10/23/17 05:41 Interpretation: Normal - General General appearance: Appears well, Alert - HEENT Head: Normocephalic, Atraumatic Eyes: Normal Pupils: PERRL - Respiratory Respiratory status: No respiratory distress Chest status: Nontender Breath sounds: Normal Chest palpation: Normal - Cardiovascular Rhythm: Regular Heart sounds: Normal auscultation Murmur: No - Abdominal Inspection: Normal Distension: No distension Bowel sounds: Normal Tenderness: Nontender Organomegaly: No organomegaly - Rectal Tenderness: No Stool: Other - Unremarkable rectal exam. Not bright red. - Back Back: Normal, Nontender - Extremities General upper extremity: Normal inspection, Nontender, Normal color, Normal ROM , Normal temperature General lower extremity: Normal inspection, Nontender, Normal color, Normal ROM , Normal temperature, Normal weight bearing. No: Oanh's sign - Neurological Neuro grossly intact: Yes Cognition: Normal Orientation: AAOx4 Malena Coma Scale Eye Opening: Spontaneous Malena Coma Scale Verbal: Oriented Malena Coma Scale Motor: Obeys Commands Malena Coma Scale Total: 15 Speech: Normal Motor strength normal: LUE, RUE, LLE, RLE Sensory: Normal - Psychological Associated symptoms: Normal affect, Normal mood - Skin Skin Temperature: Warm Skin Moisture: Dry Skin Color: Normal Course - Re-evaluation Re-evalutation: 10/23/17 07:46 Is a well-appearing female in no acute distress at this time. Fairly unremarkable rectal exam. We will get basic labs. Has oncology appointment at 830 this morning we will try to get her there. Labs have been drawn. I believe this is just a continuation of her colitis more than likely which she is currently being treated for. Will call her oncologist, Dr. King and run the case by her and see what she thinks. 10/23/17 09:02 Laboratory 10/23/17 10/23/17 10/23/17 07:30 07:42 07:42 WBC 3.9 L RBC 2.95 L Hgb 10.3 L Hct 30.4 L MCV 103 H MCH 35.1 H MCHC 34.0 RDW 17.3 H Plt Count 233 Seg Neutrophils % 49.2 Lymphocytes % 33.0 Monocytes % 14.0 H Eosinophils % 3.4 Basophils % 0.4 Absolute Neutrophils 1.9 Absolute Lymphocytes 1.3 Absolute Monocytes 0.5 Absolute Eosinophils 0.1 Absolute Basophils 0.0 Clumped Platelets PRESENT Platelet Comment Not Reportable Polychromasia SLIGHT Hypochromasia SLIGHT Poikilocytosis 2+ Ovalocytes 2+ Schistocytes SLIGHT Sodium 145.7 H Potassium 3.5 L Chloride 109 H Carbon Dioxide 27 Anion Gap 10 BUN 5 L Creatinine 0.79 Est GFR ( Amer) > 60 Est GFR (Non-Af Amer) > 60 Glucose 89 Calcium 9.3 Total Bilirubin < 0.1 L Direct Bilirubin Not Reportable Neonat Total Bilirubin Not Reportable Neonat Direct Bilirubin Not Reportable Neonat Indirect Bili Not Reportable AST 30 ALT 62 H Alkaline Phosphatase 98 Total Protein 5.8 L Albumin 3.8 Lipase 449.5 H Urine Color Urine Appearance Urine pH Ur Specific [place] Urine Protein Urine Glucose (UA) Urine Ketones Urine Blood Urine Nitrite Urine Bilirubin Urine Urobilinogen Ur Leukocyte Esterase Urine WBC (Auto) Urine RBC (Auto) Urine Bacteria (Auto) Squamous Epi Cells Auto Urine Mucus (Auto) Urine Ascorbic Acid Stool Occult Blood POSITIVE 10/23/17 07:42 WBC RBC Hgb Hct MCV MCH MCHC RDW Plt Count Seg Neutrophils % Lymphocytes % Monocytes % Eosinophils % Basophils % Absolute Neutrophils Absolute Lymphocytes Absolute Monocytes Absolute Eosinophils Absolute Basophils Clumped Platelets Platelet Comment Polychromasia Hypochromasia Poikilocytosis Ovalocytes Schistocytes Sodium Potassium Chloride Carbon Dioxide Anion Gap BUN Creatinine Est GFR ( Amer) Est GFR (Non-Af Amer) Glucose Calcium Total Bilirubin Direct Bilirubin Neonat Total Bilirubin Neonat Direct Bilirubin Neonat Indirect Bili AST ALT Alkaline Phosphatase Total Protein Albumin Lipase Urine Color YELLOW Urine Appearance CLEAR Urine pH 5.0 Ur Specific [place] 1.010 Urine Protein NEGATIVE Urine Glucose (UA) NEGATIVE Urine Ketones NEGATIVE Urine Blood NEGATIVE Urine Nitrite NEGATIVE Urine Bilirubin NEGATIVE Urine Urobilinogen NEGATIVE Ur Leukocyte Esterase TRACE H Urine WBC (Auto) 1 Urine RBC (Auto) 1 Urine Bacteria (Auto) TRACE Squamous Epi Cells Auto 1 Urine Mucus (Auto) RARE Urine Ascorbic Acid NEGATIVE Stool Occult Blood Poke with Dr. Hall with oncology. Patient has stable hemoglobin and hematocrit. Will probably not proceed with chemotherapy today however. Patient does have a slightly elevated lipase but this is elevated last week as well. Just a slight bit of elevation as compared to prior. Will communicate with patient's oncologist regarding labs. Comfortable at this time discharging. Patient given strict warning signs regarding GI bleeding. Most likely this is related to her colitis. Patient is stable. Normal vital signs. Not tachycardic. Not hypotensive. Patient is hungry. Had a recent colonoscopy as well as endoscopy as well as MRCP. Nothing further to do at this time. - Vital Signs Vital signs: Temp Pulse Resp BP Pulse Ox 98.2 F 98 18 129/89 H 98 10/23/17 05:41 10/23/17 05:41 10/23/17 05:41 10/23/17 05:41 10/23/17 05:41 - Laboratory Result Diagrams: 10/23/17 07:42 10/23/17 07:42 Laboratory results interpreted by me: 10/23/17 10/23/17 10/23/17 07:42 07:42 07:42 WBC 3.9 L RBC 2.95 L Hgb 10.3 L Hct 30.4 L MCV 103 H MCH 35.1 H RDW 17.3 H Monocytes % 14.0 H Sodium 145.7 H Potassium 3.5 L Chloride 109 H BUN 5 L Total Bilirubin < 0.1 L ALT 62 H Total Protein 5.8 L Lipase 449.5 H Ur Leukocyte Esterase TRACE H Discharge - Discharge Clinical Impression: Colitis Condition: Good Disposition: HOME, SELF-CARE Instructions: Colitis, Nonspecific ([facility]), Rectal Bleeding, Unclear Cause ([facility]) Additional Instructions: Your labs look fairly unremarkable today. The lipase was slightly elevated but this was elevated before. Your blood counts look good. Please follow-up with Dr. Raines with oncology as soon as possible. Return immediately if you develop any worsening symptoms, worsening bleeding or other concerns. Referrals: SRIRAM GRACE MD [ACTIVE STAFF] - 10/23/17
[2017-10-23 08:06] LABS: ABSOLUTE EOSINOPHILS # (AUTO) 0.1 10^3/uL (0.0-0.6); ABSOLUTE LYMPHOCYTES (AUTO) 1.3 10^3/uL (0.5-4.7); ABSOLUTE MONOCYTES (AUTO) 0.5 10^3/uL (0.1-1.4); ABSOLUTE NEUT (AUTO) 1.9 10^3/uL (1.7-8.2); BASOPHILS % (AUTO) 0.4 % (0-2); EOSINOPHILS % (AUTO) 3.4 % (0-6); HEMATOCRIT 30.4 % (36.0-47.0); HEMOGLOBIN 10.3 g/dL (12.0-15.5); MEAN CORPUSCULAR HEMOGLOBIN 35.1 pg (27.0-33.4); MEAN CORPUSCULAR VOLUME 103 fl (80-97); PLATELET COUNT 233 10^3/uL (150-450); RED BLOOD COUNT 2.95 10^6/uL (3.72-5.28); RED CELL DISTRIBUTION WIDTH 17.3 % (11.5-14.0); SEGMENTED NEUTROPHILS % (AUTO) 49.2 % (42-78); TOTAL CELLS COUNTED % (AUTO) 100 %; WHITE BLOOD COUNT 3.9 10^3/uL (4.0-10.5)
[2017-10-23 08:09] LABS: APPEARANCE,URINE CLEAR; BILIRUBIN,URINE NEGATIVE (NEGATIVE); COLOR,URINE YELLOW; GLUCOSE, URINE NEGATIVE (NEGATIVE); KETONES,URINE NEGATIVE (NEGATIVE); LEUKOCYTE ESTERASE,URINE TRACE (NEGATIVE); NITRITE,URINE NEGATIVE (NEGATIVE); PROTEIN,URINE NEGATIVE (NEGATIVE); UROBILINOGEN,URINE NEGATIVE mg/dL (<2.0)
[2017-10-23 08:23] LABS: ALANINE AMINOTRANSFERASE 62 U/L (9-52); ALBUMIN 3.8 g/dL (3.5-5.0); ALKALINE PHOSPHATASE 98 U/L (38-126); ANION GAP 10 (5-19); ASPARTATE AMINO TRANSFERASE 30 U/L (14-36); BILIRUBIN,TOTAL < 0.1 mg/dL (0.2-1.3); BLOOD UREA NITROGEN 5 mg/dL (7-20); CALCIUM 9.3 mg/dL (8.4-10.2); CARBON DIOXIDE 27 mmol/L (22-30); CHLORIDE 109 mmol/L (98-107); GLUCOSE 89 mg/dL (75-110); LIPASE 449.5 U/L (23-300); POTASSIUM 3.5 mmol/L (3.6-5.0); SODIUM 145.7 mmol/L (137-145); TOTAL PROTEIN 5.8 g/dL (6.3-8.2)
[2017-10-23 08:36] LABS: HYPOCHROMASIA SLIGHT; OVALOCYTES 2+; PLATELET CLUMPS PRESENT; POIKILOCYTOSIS 2+; POLYCHROMASIA SLIGHT; SCHISTOCYTES SLIGHT
[2017-10-23 09:16] VITALS: BP 138/85
== END 2017-10-23 09:15 | disposition home or self-care (01) ==
LOC: ER 05:36
DX: K52.9 Noninfective gastroenteritis and colitis, unspecified (principal); R19.5 Other fecal abnormalities; R10.30 Lower abdominal pain, unspecified; Z79.899 Other long term (current) drug therapy
CPT/HCPCS: 36415; 80053; 81001; 82272; 83690; 85025; 86850; 86870; 86900; 86901; 87086; 99283

== ENCOUNTER 2017-11-06 09:52 | Outpatient (CLI) | payer MEDICARE, MEDICAID ==
[2017-11-06] MEDS ORDERED: CEFTRIAXONE SODIUM 1,000 MG in DEXTROSE 5%-WATER 50 ML IV PRN (09:57)
[2017-11-06] MEDS ORDERED: NORMAL SALINE 1000 ML 1,000 ML IV PRN (09:58)
[2017-11-06] MEDS ORDERED: ACETAMINOPHEN 325 MG TABLET ONE (12:13)
[2017-11-06 13:00] LABS: APPEARANCE,URINE CLEAR; BILIRUBIN,URINE NEGATIVE (NEGATIVE); COLOR,URINE STRAW; GLUCOSE, URINE NEGATIVE (NEGATIVE); KETONES,URINE TRACE mg/dL (NEGATIVE); LEUKOCYTE ESTERASE,URINE NEGATIVE (NEGATIVE); NITRITE,URINE NEGATIVE (NEGATIVE); PROTEIN,URINE 100 mg/dL (NEGATIVE); URINE SPECIFIC GRAVITY 1.005; UROBILINOGEN,URINE NEGATIVE mg/dL (<2.0)
--- NOTE | 2017-11-06 13:09 | RADIOLOGY REPORT (SQ) ---
EXAM DESCRIPTION: CHEST PA/LAT COMPLETED DATE/TIME: 11/06/2017 12:59 pm REASON FOR STUDY: temp 103 coughing COMPARISON: Two-view chest 09/20/2016 Whole-body PET-CT 08/05/2017 EXAM PARAMETERS: NUMBER OF VIEWS: two views TECHNIQUE: Digital Frontal and Lateral radiographic views of the chest acquired. RADIATION DOSE: NA LIMITATIONS: none FINDINGS: LUNGS AND PLEURA: No opacities, masses or pneumothorax. No pleural effusion. MEDIASTINUM AND HILAR STRUCTURES: No masses or contour abnormalities. HEART AND VASCULAR STRUCTURES: Heart normal size. No evidence for failure. BONES: No acute findings. HARDWARE: None in the chest. OTHER: No other significant finding. IMPRESSION: NO SIGNIFICANT RADIOGRAPHIC FINDING IN THE CHEST. TECHNICAL DOCUMENTATION: JOB ID: [id number] [employer]- All Rights Reserved
[2017-11-06 13:45] VITALS: BP 142/56
== END 2017-11-06 14:03 | disposition home or self-care (01) ==
LOC: II 09:52 → 5TH 09:56 → II 14:03
PROVIDERS: ATTEND Internal Medicine
PROC: 3E03329 Introduction of Other Anti-infective into Peripheral Vein, Percutaneous Approach (ICD-10-PCS; principal; 2017-11-06)
PROC: 3E0337Z Introduction of Electrolytic and Water Balance Substance into Peripheral Vein, Percutaneous Approach (ICD-10-PCS; 2017-11-06)
DX: E86.0 Dehydration (principal); R50.9 Fever, unspecified; C90.00 Multiple myeloma not having achieved remission
CPT/HCPCS: 87040; 87086; 81001; 71046; 96367; A9270; J0696; 96361; 96365

== ENCOUNTER 2018-02-19 10:14 | Outpatient (CLI) | payer MEDICAID, MEDICARE ==
[~2018-02-19 10:14] MED LIST changes: +ACETAMINOPHEN 325 MG TABLET PO PRN; -CARFILZOMIB IV PRN; +DARATUMUMAB IV PRN; -DEXTROSE 5% IV PRN; +DIPHENHYDRAMINE HCL 50 MG in NORMAL SALINE 50 ML IV PRN; +METHYLPREDNISOLONE SOD SUCC/PF 100 MG in NORMAL SALINE 50 ML IV PRN; +NORMAL SALINE IV PRN; -WATER IV PRN
[2018-02-19 10:48] VITALS: BP 139/79
[2018-02-19] MEDS ORDERED: MAGNESIUM SULFATE 1 GM/D5W 100 ML IV SCH (13:00)
[2018-02-19] MEDS ORDERED: MAGNESIUM SULFATE 1 GM/D5W 100 ML IV PRN (13:09)
== END 2018-02-19 18:02 | disposition home or self-care (01) ==
LOC: II 10:14 → 5TH 10:18 → II 18:02
PROVIDERS: ATTEND Internal Medicine Hematology & Oncology
PROC: 3E0330M Introduction of Antineoplastic, Monoclonal Antibody, into Peripheral Vein, Percutaneous Approach (ICD-10-PCS; principal; 2018-02-19)
PROC: 3E0333Z Introduction of Anti-inflammatory into Peripheral Vein, Percutaneous Approach (ICD-10-PCS; 2018-02-19)
PROC: 3E033GC Introduction of Other Therapeutic Substance into Peripheral Vein, Percutaneous Approach (ICD-10-PCS; 2018-02-19)
DX: Z51.11 Encounter for antineoplastic chemotherapy (principal); C90.00 Multiple myeloma not having achieved remission
CPT/HCPCS: 96413; 96415; 96367; A9270; J1200; J2930; J3475; J7040; J9145 ×2

== ENCOUNTER 2018-05-07 06:13 | Day surgery (SDC) | payer MEDICARE, MEDICAID ==
[~2018-05-07 06:13] MED LIST changes: -ACETAMINOPHEN 325 MG TABLET PO PRN; +CEFAZOLIN 1 GM/D5W RTU 1 GM/50 ML RTUPB IV PRN; -DARATUMUMAB IV PRN; +DEXTROSE 5%-1/2 NORMAL SALINE 1,000 ML IV PRN; +DIAZEPAM 5 MG TABLET PO PRN; -DIPHENHYDRAMINE HCL 50 MG in NORMAL SALINE 50 ML IV PRN; -METHYLPREDNISOLONE SOD SUCC/PF 100 MG in NORMAL SALINE 50 ML IV PRN; -NORMAL SALINE 250 ML IV PRN; -NORMAL SALINE IV PRN; +OXYCODONE-ACETAMINOPHEN 5-325 MG TABLET PO PRN
[2018-05-07 07:27] LABS: HEMATOCRIT 32.1 % (36.0-47.0); HEMOGLOBIN 10.9 g/dL (12.0-15.5); MEAN CORPUSCULAR VOLUME 91 fl (80-97); PLATELET COUNT 198 10^3/uL (150-450); RED BLOOD COUNT 3.52 10^6/uL (3.72-5.28); RED CELL DISTRIBUTION WIDTH 19.3 % (11.5-14.0); WHITE BLOOD COUNT 2.5 10^3/uL (4.0-10.5)
--- NOTE | 2018-05-07 07:37 | RADIOLOGY REPORT (SQ) ---
EXAM DESCRIPTION: XR CHEST 1 VIEW COMPLETED DATE/TME: 05/07/2018 06:51 CLINICAL HISTORY: pre op Mediport insertion. COMPARISON: 11/06/2017 FINDINGS: Single frontal view of the chest. The cardiomediastinal silhouette has normal size and contour. No consolidation, pneumothorax, or pleural effusion. No acute osseous abnormalities. Upper abdominal soft tissues are unremarkable. IMPRESSION: 1. No acute pulmonary process identified.
[2018-05-07 07:42] LABS: BLOOD UREA NITROGEN 16 mg/dL (7-20); CALCIUM 9.4 mg/dL (8.4-10.2); CARBON DIOXIDE 24 mmol/L (22-30); CHLORIDE 110 mmol/L (98-107); GLUCOSE 89 mg/dL (75-110); POTASSIUM 3.8 mmol/L (3.6-5.0); SODIUM 144.1 mmol/L (137-145)
[2018-05-07 07:43] LABS: ANION GAP 10 (5-19)
[2018-05-07] MEDS ORDERED: LIDOCAINE 0.5% INJ-PF (5 MG/ML) 50 ML SDV ONE (07:53)
[2018-05-07] MEDS ORDERED: BACITRACIN INJ 50,000 UNIT VIAL ONE (07:58)
[2018-05-07] MEDS ORDERED: MIDAZOLAM 2 MG/2 ML INJ ONE (08:08)
[2018-05-07] MEDS ORDERED: FENTANYL CITRATE INJ/PF 100 MCG/2 ML AMPUL ONE (08:08)
--- NOTE | 2018-05-07 10:07 | Discharge Summary ---
Discharge Summary (SDC) - Discharge Final Diagnosis: #1 bone marrow transplant. 2. Multiple myeloma. 3. History of DVT. Date of Surgery: 05/07/18 Discharge Date: 05/07/18 Condition: Good Forms: ASU Anesthesia D/C Instruction, Discharge POC-Surgical Service Treatment or Instructions: Discharge home [after recovery per ASU criteria]. Diet,as tolerated, when fully awake advance as tolerated. Activities within moderation encouraged. Follow up in my office by appointment in about [1 week]. Call for appointment. Leave wounds [covered], [keep clean and dry, until office visit in 1 week]. Hold of on school/work [until evaluation in office]. Meds per med rec. Percocet. May shower [in 48 hrs], [try to keep operated area as dry as possible]. Prescriptions: Oxycodone HCl/Acetaminophen [Percocet 5-325 mg Tablet] 1 tab PO ASDIR PRN #15 tab PRN Reason: Referrals: BOBBY SNOW MD [Primary Care Provider] - Discharge Diet: As Tolerated Respiratory Treatments at Home: Deep Breathing/Coughing Discharge Activity: Activity As Tolerated Report the Following to Your Physician Immediately: Shortness of Breath, Unusual Bleeding
--- NOTE | 2018-05-07 10:21 | RADIOLOGY REPORT (SQ) ---
EXAM DESCRIPTION: PORTACATH INSERTION COMPLETED DATE/TIME: 05/07/2018 9:32 am REASON FOR STUDY: C90.00 MULTIPLE MYELOME C90.00 MULTIPLE MYELOMA NOT HAVING ACHIEVED REMISSION Z79 .899 OTHER RESIDENTIAL (CURRENT) DRUG THERAPY COMPARISON: None. FLUOROSCOPY TIME: 0.5 minutes 42 images saved to PACS. TECHNIQUE: Intra-operative images acquired during surgical procedure to evaluate progress. NUMBER OF IMAGES: 42 LIMITATIONS: None. FINDINGS: Selected spot and scintigraphic images from left-sided port placement. Tip overlies the S VC. IMPRESSION: IMAGE(S) OBTAINED DURING PROCEDURE. COMMENT: Quality ID [id number]: Final reports for procedures using fluoroscopy that document radiation exp osure indices, or exposure time and number of fluorographic images (if radiation exposure indices are not available) Please consult full operative report of the attending physician for description of the procedure. TECHNICAL DOCUMENTATION: JOB ID: [id number] [employer]- All Rights Reserved Reading location - IP/workstation name: [email or web address]
[2018-05-07 11:00] VITALS: BP 123/79
== END 2018-05-07 10:55 | disposition home or self-care (01) ==
LOC: CCL 06:13
PROVIDERS: ATTEND Surgery
DX: C90.00 Multiple myeloma not having achieved remission (principal); D61.818 Other pancytopenia; F41.9 Anxiety disorder, unspecified; Z86.718 Personal history of other venous thrombosis and embolism; Z94.81 Bone marrow transplant status; Z87.891 Personal history of nicotine dependence; Z79.01 Long term (current) use of anticoagulants; Z79.899 Other long term (current) drug therapy; Z01.818 Encounter for other preprocedural examination
CPT/HCPCS: 36415; 85027; 80048; 36561; 76937; 77001; 71045; C1769; C1752; C1788; Q9967; J2250; J3490 ×2; J0690; A9270 ×2; J3010; J1644

== ENCOUNTER → 2018-08-21 | Outpatient (CLI) | payer MEDICARE, MEDICAID ==
--- NOTE | 2018-08-21 09:07 | RADIOLOGY REPORT (SQ) ---
EXAM DESCRIPTION: L SPINE WHOLE COMPLETED DATE/TIME: 08/21/2018 9:00 am REASON FOR STUDY: BACK PAIN (M54.5) M54.5 LOW BACK PAIN COMPARISON: 06/27/2014 NUMBER OF VIEWS: Five views including obliques. TECHNIQUE: AP, lateral, oblique, and sacral radiographic images acquired of the lumbar spine. LIMITATIONS: None. FINDINGS: MINERALIZATION: Osteopenia. SEGMENTATION: Normal. No transitional anatomy. ALIGNMENT: Normal. VERTEBRAE: Maintained height. No fracture or worrisome bone lesion. DISCS: Preserved height. No significant osteophytes or end plate irregularity. POSTERIOR ELEMENTS: Pedicles and facets are intact. No pars defect or posterior arch defects. HARDWARE: None in the spine. PARASPINAL SOFT TISSUES: Normal. PELVIS: Intact as visualized. No fractures or worrisome bone lesions. SI joints intact. OTHER: No other significant finding. IMPRESSION: Osteopenia. No focal lytic or sclerotic lesions. TECHNICAL DOCUMENTATION: JOB ID: [id number] [employer]- All Rights Reserved Reading location - IP/workstation name: [email or web address]
== END ==
LOC: RAD 08:22
PROVIDERS: ATTEND Internal Medicine Hematology & Oncology
DX: M54.5 Low back pain (principal); M85.88 Other specified disorders of bone density and structure, other site
CPT/HCPCS: 72110

== ENCOUNTER 2018-10-27 09:22 | Emergency (ER) | payer MEDICARE, MEDICAID ==
[2018-10-27] MEDS ORDERED: NORMAL SALINE 1000 ML 1,000 ML IV ONE (09:39)
[2018-10-27] MEDS ORDERED: ONDANSETRON HCL INJ/PF 4 MG/2 ML SDV IV ONE ×2 (09:39→15:55)
--- NOTE | 2018-10-27 09:41 | ER Document Report ---
ED Medical Screen (RME) - General Chief Complaint: Vomiting/Diarrhea Stated Complaint: DIARRHEA Time Seen by Provider: 10/27/18 09:39 Mode of Arrival: Ambulatory Information source: Patient, Relative TRAVEL OUTSIDE OF THE [place] IN LAST 30 DAYS: No - HPI Patient complains to provider of: abd pain/N/V/D Onset: Other - pt on chemo with last treatment 4 days ago with onset of N/V/D with abdominal cramps for the pat 3 days. - Related Data Allergies/Adverse Reactions: No Known Drug Allergies Allergy (Verified 10/27/18 09:23) Past Medical History - Past Medical History Cardiac Medical History: Denies: Hx Coronary Artery Disease, Hx Heart Attack, Hx Hypertension Pulmonary Medical History: Denies: Hx Asthma, Hx Bronchitis, Hx COPD, Hx Pneumonia, Hx Tuberculosis Neurological Medical History: Reports: Hx Migraine. Denies: Hx Cerebrovascular Accident, Hx Seizures Renal/ Medical History: Denies: Hx Peritoneal Dialysis Musculoskeltal Medical History: Reports Hx Arthritis - Fingers Psychiatric Medical History: Reports: Hx Depression Past Surgical History: Reports: Hx Cholecystectomy, Hx Orthopedic Surgery, Hx Tubal Ligation - Immunizations Hx Diphtheria, Pertussis, Tetanus Vaccination: Yes History of Influenza Vaccine for 07/2017 - 12/2017 Season: Refused Physical Exam - Vital signs Vitals: Temp Pulse Resp BP Pulse Ox 97.7 F 63 20 127/87 H 100 10/27/18 09:33 10/27/18 09:33 10/27/18 09:33 10/27/18 09:33 10/27/18 09:33 Course - Vital Signs Vital signs: Temp Pulse Resp BP Pulse Ox 97.7 F 63 20 127/87 H 100 10/27/18 09:33 10/27/18 09:33 10/27/18 09:33 10/27/18 09:33 10/27/18 09:33 Doctor's Discharge - Discharge Referrals: BOBBY SNOW MD [Primary Care Provider] - Follow up as needed
--- NOTE | 2018-10-27 10:21 | RADIOLOGY REPORT (SQ) ---
EXAM DESCRIPTION: ACUTE ABDOMEN SERIES COMPLETED DATE/TIME: 10/27/2018 10:11 am REASON FOR STUDY: abd pain COMPARISON: None. NUMBER OF VIEWS: Three views. TECHNIQUE: Frontal chest, supine abdomen and upright/decubitus abdomen radiographic images acquired. LIMITATIONS: None. FINDINGS: CHEST: Lungs clear of infiltrates. FREE AIR: None. No abnormal gas collections. BOWEL GAS PATTERN: Nonobstructive pattern. No dilated loops or air fluid levels. CALCIFICATIONS: Likely phleboliths the pelvis. HARDWARE: None in the abdomen. SOFT TISSUES: No gross mass or suggestion of organomegaly. BONES: No acute fracture. No worrisome bone lesions. OTHER: No other significant finding. IMPRESSION: NO RADIOGRAPHIC EVIDENCE FOR ACUTE ABDOMINAL DISEASE. TECHNICAL DOCUMENTATION: JOB ID: [id number] [employer]- All Rights Reserved Reading location - IP/workstation name: [email or web address]
[2018-10-27] MEDS ORDERED: FENTANYL CITRATE INJ/PF 100 MCG/2 ML AMPUL IV ONE ×3 (10:35→17:27)
--- NOTE | 2018-10-27 10:35 | ER Document Report ---
ED General - General Mode of Arrival: Ambulatory TRAVEL OUTSIDE OF THE [place] IN LAST 30 DAYS: No <VIKY MOBLEY - Last Filed: 10/27/18 12:00> <KATHIE BOWMAN - Last Filed: 10/27/18 17:42> - General Chief Complaint: Vomiting/Diarrhea Stated Complaint: DIARRHEA Time Seen by Provider: 10/27/18 09:39 Notes: 57-year-old female with multiple myeloma followed by Dr. Lowry who is on Eliquis for DVT prevention (no history of DVT/PE) presents today with complaints of vomiting, diarrhea, and left chest wall muscle spasm Patient states she has been having diarrhea consistently since for the last 4 days and is vomiting anytime she eats or drinks anything. Patient states she typically feels worn out after chemo but the constant diarrhea and vomiting is unusual for her. Patient has a history of colitis in the past however the patient states that her symptoms today are not the same as they were when she had the colitis. Patient denies any abdominal pain. (VIKY MOBLEY) - Related Data Allergies/Adverse Reactions: No Known Drug Allergies Allergy (Verified 10/27/18 09:23) Past Medical History - General Information source: Patient, Relative - Social History Smoking Status: Former Smoker Frequency of alcohol use: None Drug Abuse: None Family History: CAD, DM, Hypertension Patient has suicidal ideation: No Patient has homicidal ideation: No - Past Medical History Cardiac Medical History: Denies: Hx Coronary Artery Disease, Hx Heart Attack, Hx Hypertension Pulmonary Medical History: Denies: Hx Asthma, Hx Bronchitis, Hx COPD, Hx Pneumonia, Hx Tuberculosis Neurological Medical History: Reports: Hx Migraine. Denies: Hx Cerebrovascular Accident, Hx Seizures Renal/ Medical History: Denies: Hx Peritoneal Dialysis Musculoskeletal Medical History: Reports Hx Arthritis - Fingers Psychiatric Medical History: Reports: Hx Depression Past Surgical History: Reports: Hx Cholecystectomy, Hx Orthopedic Surgery, Hx Tubal Ligation - Immunizations Hx Diphtheria, Pertussis, Tetanus Vaccination: Yes <VIKY MOBLEY - Last Filed: 10/27/18 12:00> Review of Systems - Review of Systems Cardiovascular: Edema - Patient usually puts on compression hose when her edema gets worse. <KATHIE BOWMAN - Last Filed: 10/27/18 17:42> Physical Exam <VIKY MOBLEY - Last Filed: 10/27/18 12:00> - Extremities General lower extremity: Other - The left proximal anterior tibialis region has a subcutaneous cystic type structure about 1/2 cm. The patient noticed this a few days ago when she took her compression hose off and was rubbing lotion into her legs. <KATHIE BOWMAN - Last Filed: 10/27/18 17:42> - Vital signs Vitals: Temp Pulse Resp BP Pulse Ox 97.7 F 63 20 127/87 H 100 10/27/18 09:33 10/27/18 09:33 10/27/18 09:33 10/27/18 09:33 10/27/18 09:33 - Notes Notes: Physical Exam: General: Alert. HEENT: Normocephalic. Atraumatic. PERRL. Extraocular movements intact. Oropharynx clear. Dry oral mucosa. Neck: Supple. Non-tender. Respiratory: No respiratory distress. Clear and equal breath sounds bilaterally. Very tender with palpation over the left anterior lateral ribs. Cardiovascular: Regular rate and rhythm. Abdominal: Normal Inspection. Non-tender. No distension. Normal Bowel Sounds. Back: Non-tender. No deformity or step off. Extremities: Moves all four extremities. Upper extremities: Normal inspection. Normal ROM. Lower extremities: Normal inspection. No edema. Normal ROM. Neurological: Normal cognition. AAOx4. Normal speech. Psychological: Normal affect. Normal Mood. Skin: Warm. Dry. Normal color. (VIKY MOBLEY) Course - Laboratory Result Diagrams: 10/27/18 10:56 10/27/18 10:56 <VIKY MOBLEY - Last Filed: 10/27/18 12:00> - Laboratory Result Diagrams: 10/27/18 10:56 10/27/18 10:56 - Diagnostic Test Radiology reviewed: Image reviewed, Reports reviewed - Acute abdominal series is unremarkable. There is a PowerPort in the left chest. - Consults Dr. Marquez Time consulted: 17:20 Consulted provider: follow-up in office - Dr. Lowry was called as a courtesy to let her know what was going on with her patient, whom she provides oncology and primary care type services to. She will see her in the office on Sunday at her regularly scheduled appointment. <KATHIE BOWMAN - Last Filed: 10/27/18 17:42> - Re-evaluation Re-evalutation: 10/27/18 12:39 The patient reports that she does not normally have any adverse symptoms following her chemo, so this appears to most likely be a viral gastroenteritis. Her creatinine today has doubled compared to her baseline and is most likely due to her dehydration. 10/27/18 13:37 At this time the patient is requesting something to eat. She has not had any diarrhea. She also reports that the cramping in her ribs is now moved to the right side. 10/27/18 15:55 The patient did eat although she stated it was a little difficult due to nausea. She reported the nausea she thought was more likely due to not having eaten anything in a while. She did not have any diarrhea after eating. She has not urinated yet, although she has had 2 L of IV fluids and has been drinking fluids. He reports that overall she is feeling better. 10/27/18 17:27 The patient is beginning to have cramping in her thoracic muscles again, particularly in the right posterior lateral area. Palpation of that area shows these muscles to be quite tender. I suspect all of these thoracic muscles are tender secondary to the vomiting she had been doing this week. She has still not had any diarrhea since she arrived almost 8 hours ago. (KATHIE BOWMAN) - Vital Signs Vital signs: Temp Pulse Resp BP Pulse Ox 97.7 F 63 21 H 124/86 H 100 10/27/18 09:33 10/27/18 09:33 10/27/18 16:00 10/27/18 15:01 10/27/18 16:00 - Laboratory Laboratory results interpreted by me: 10/27/18 10/27/18 10/27/18 10:56 10:56 10:56 WBC 2.8 L RDW 19.9 H Seg Neuts % (Manual) 37 L Monocytes % (Manual) 22 H Abs Neuts (Manual) 1.0 L VBG pH 7.43 H VBG pCO2 25.7 L VBG HCO3 16.5 L Chloride 108 H Carbon Dioxide 16 L Creatinine 1.42 H Est GFR ( Amer) 46 L Est GFR (Non-Af Amer) 38 L Glucose 112 H Urine Protein Urine Blood 10/27/18 16:31 WBC RDW Seg Neuts % (Manual) Monocytes % (Manual) Abs Neuts (Manual) VBG pH VBG pCO2 VBG HCO3 Chloride Carbon Dioxide Creatinine Est GFR ( Amer) Est GFR (Non-Af Amer) Glucose Urine Protein 30 H Urine Blood SMALL H Discharge <VIKY MOBLEY - Last Filed: 10/27/18 12:00> <KATHIE BOWMAN - Last Filed: 10/27/18 17:42> - Discharge Clinical Impression: Nausea, vomiting and diarrhea, Dehydration, Rib pain on left side Condition: Stable Disposition: HOME, SELF-CARE Additional Instructions: Gastroenteritis: You most likely have gastroenteritis. This is an irritation of the stomach and intestinal tract. It's usually caused by a virus, but can also be caused by bacteria, toxins that cause food poisoning, or excessive alcohol intake. Symptoms may include fever, painful abdominal cramps, nausea, vomiting, and diarrhea. Start with small amounts (two to six ounces) of clear liquids (soft drinks, herb teas, broth, etc). Try to take fluids frequently even if you are vomiting, to prevent dehydration. When liquids are being consumed successfully, advance to small amounts of bland food (mashed potato, toast) for 6 - 12 hours. Gastroenteritis rarely requires medication. It goes away by itself. Use good handwashing so you don't spread germs. Wash underwear in very hot water. If symptoms are severe, talk to the doctor. Call your physician if blood appears in your vomitus or stool, if vomiting lasts longer than 24 hours, if the abdominal pain worsens or becomes localized to one area, or if you develop high fever. Thoracic Muscle Strain: You have PROBABLY strained your rib muscles. This often occurs with strenuous exertion, or during an injury that suddenly stretches the muscle--such as repeated vomiting. The seriousness of a strain varies. Some strains heal within days, others cause problems for months. X-rays cannot show a muscle strain. X-rays are taken only if symptoms sugg est that a fracture could be present. Call the doctor immediately if pain or swelling becomes severe, or if numbness or discoloration develop. Take the medications as prescribed. Drink cool clear liquids today. Follow-up with Dr. Jimmy Bliss as planned. RETURN TO THE EMERGENCY ROOM IF ANY NEW OR WORSENING SYMPTOMS. Prescriptions: Hydrocodone/Acetaminophen [[place] 5-325 mg Tablet] 1 tab PO Q4 PRN #15 tablet PRN Reason: Methocarbamol [Robaxin 750 mg Tablet] 750 mg PO Q4 #20 tablet Ondansetron [Zofran Odt 4 mg Tablet] 1 - 2 tab PO Q4H #10 tab.rapdis Referrals: SRIRAM MARQUEZ MD [ACTIVE STAFF] - Follow up as needed Scribe Attestation: 10/27/18 12:41 I personally performed the services described in the documentation, reviewed and edited the documentation which was dictated to the scribe in my presence, and it accurately records my words and actions. (KATHIE BOWMAN)
[2018-10-27] MEDS ORDERED: LIDOCAINE 4% TRANSPARENT DRESSING 5 GM KIT TP ONE (10:47)
[2018-10-27 11:18] LABS: VENOUS BLOOD BASE EXCESS -5.9 mmol/L; VENOUS BLOOD HCO3 16.5 mmol/L (20-32); VENOUS BLOOD PCO2 25.7 mmHg (35-63); VENOUS BLOOD PH 7.43 (7.30-7.42)
[2018-10-27 11:27] LABS: HEMATOCRIT 42.7 % (36.0-47.0); HEMOGLOBIN 14.5 g/dL (12.0-15.5); MEAN CORPUSCULAR HEMOGLOBIN 32.4 pg (27.0-33.4); MEAN CORPUSCULAR HGB CONC 33.9 g/dL (32.0-36.0); MEAN CORPUSCULAR VOLUME 96 fl (80-97); PLATELET COUNT 296 10^3/uL (150-450); RED BLOOD COUNT 4.47 10^6/uL (3.72-5.28); RED CELL DISTRIBUTION WIDTH 19.9 % (11.5-14.0); WHITE BLOOD COUNT 2.8 10^3/uL (4.0-10.5)
[2018-10-27 11:46] LABS: ALANINE AMINOTRANSFERASE 23 U/L (9-52); ALKALINE PHOSPHATASE 71 U/L (38-126); ANION GAP 16 (5-19); ASPARTATE AMINO TRANSFERASE 18 U/L (14-36); BILIRUBIN,DIRECT 0.1 mg/dL (0.0-0.4); BILIRUBIN,TOTAL 0.5 mg/dL (0.2-1.3); BLOOD UREA NITROGEN 18 mg/dL (7-20); CALCIUM 9.3 mg/dL (8.4-10.2); CARBON DIOXIDE 16 mmol/L (22-30); CHLORIDE 108 mmol/L (98-107); GLUCOSE 112 mg/dL (75-110); LIPASE 61.3 U/L (23-300); POTASSIUM 3.6 mmol/L (3.6-5.0); SODIUM 140.2 mmol/L (137-145); TOTAL PROTEIN 7.9 g/dL (6.3-8.2)
[2018-10-27 11:52] LABS: ABSOLUTE LYMPHOCYTES# (MANUAL) 1.1 10^3/uL (0.5-4.7); ABSOLUTE MONOCYTES # (MANUAL) 0.6 10^3/uL (0.1-1.4); BASOPHILS % (MANUAL) 0 % (0-2); EOSINOPHILS % (MANUAL) 3 % (0-6); LYMPHOCYTES % (MANUAL) 38 % (13-45); MONOCYTES % (MANUAL) 22 % (3-13); SEGMENTED NEUTROPHILS % (MAN) 37 % (42-78); TOTAL CELLS COUNTED 100
[2018-10-27 11:55] LABS: ANISOCYTOSIS 2+; OVALOCYTES SLIGHT; PLATELET CLUMPS PRESENT; PLATELET COMMENT ADEQUATE; POIKILOCYTOSIS SLIGHT
[2018-10-27] MEDS ORDERED: DEXTROSE 5%-LACTATED RINGERS 1,000 ML IV ONE ×2 (12:08→15:55)
[2018-10-27] MEDS ORDERED: METHOCARBAMOL INJ/PF 1000 MG/10 ML SDV IV ONE (13:38)
[2018-10-27 17:06] LABS: APPEARANCE,URINE CLEAR; BILIRUBIN,URINE NEGATIVE (NEGATIVE); COLOR,URINE YELLOW; GLUCOSE, URINE NEGATIVE (NEGATIVE); KETONES,URINE NEGATIVE (NEGATIVE); LEUKOCYTE ESTERASE,URINE NEGATIVE (NEGATIVE); NITRITE,URINE NEGATIVE (NEGATIVE); PROTEIN,URINE 30 mg/dL (NEGATIVE); URINE SPECIFIC GRAVITY 1.017; UROBILINOGEN,URINE NEGATIVE mg/dL (<2.0)
[2018-10-27] MEDS ORDERED: DIAZEPAM INJ 10 MG/2 ML DISP.SYRIN IV ONE (17:26)
[2018-10-27] MEDS ORDERED: ONDANSETRON ODT 4 MG TAB (6 TAB/ER DISP) PO PRN (17:42)
[2018-10-27] MEDS ORDERED: HYDROCODONE/ACETAMINOPHEN 5-325 MG (6 TAB/ER DISP) PO PRN (17:43)
[2018-10-27 19:14] VITALS: BP 121/83
== END 2018-10-27 19:27 | disposition home or self-care (01) ==
LOC: ER 09:22
DX: R11.2 Nausea with vomiting, unspecified (principal); R19.7 Diarrhea, unspecified; E86.0 Dehydration; R07.81 Pleurodynia; R25.2 Cramp and spasm; R60.9 Edema, unspecified; C90.00 Multiple myeloma not having achieved remission; Z79.899 Other long term (current) drug therapy; Z79.01 Long term (current) use of anticoagulants; Z87.19 Personal history of other diseases of the digestive system; Z87.891 Personal history of nicotine dependence
CPT/HCPCS: 36591; 96376; 99284; 96361; 96375; 96365; 36415; 87040; 83690; 83735; 85025; 80053; 81001; 82803; 83605; 74022; J3360; J3010; J2800; J3490; J2405; J7030; A9270 ×2

== ENCOUNTER 2018-11-06 07:55 | Outpatient (CLI) | payer MEDICARE, MEDICAID ==
[~2018-11-06 07:55] MED LIST changes: -CEFAZOLIN 1 GM/D5W RTU 1 GM/50 ML RTUPB IV PRN; -DEXTROSE 5%-1/2 NORMAL SALINE 1,000 ML IV PRN; -DIAZEPAM 5 MG TABLET PO PRN; +NORMAL SALINE 250 ML IV PRN; -OXYCODONE-ACETAMINOPHEN 5-325 MG TABLET PO PRN
[2018-11-06 08:26] VITALS: BP 135/75
[2018-11-06] MEDS: MAGNESIUM SULFATE 1 GM/D5W 100 ML IV PRN ×2 (08:28→10:03)
== END 2018-11-06 12:00 | disposition home or self-care (01) ==
LOC: II 07:55 → 5TH 07:57 → II 12:00
PROVIDERS: ATTEND Internal Medicine Hematology & Oncology
PROC: 3E043GC Introduction of Other Therapeutic Substance into Central Vein, Percutaneous Approach (ICD-10-PCS; principal; 2018-11-06)
DX: E83.42 Hypomagnesemia (principal)
CPT/HCPCS: 96367; J3475; 96365; 96366

== ENCOUNTER → 2018-12-18 | Outpatient (CLI) | payer MEDICAID, MEDICARE ==
--- NOTE | 2018-12-18 11:30 | RADIOLOGY REPORT (SQ) ---
EXAM DESCRIPTION: CERV SP 3 VIEW OR LESS COMPLETED DATE/TIME: 12/18/2018 10:25 am REASON FOR STUDY: C90.00 MULTIPLE MYELOMA NOT HAVING ACHIEVED REMISSION C90.00 MULTIPLE MYELOMA NOT HAVING ACHIEVED REMISSION COMPARISON: Bones skeletal survey 04/30/2017 NUMBER OF VIEWS: Three views. TECHNIQUE: AP, lateral and odontoid radiographic images acquired of the cervical spine. LIMITATIONS: None. FINDINGS: MINERALIZATION: Normal. ALIGNMENT: Anatomic. VERTEBRAE: Vertebral bodies of normal height. DISCS: Disc space loss of height at C4-5, and C5-6. Mild osteophyte formation at these levels. HARDWARE: None in the spine. SOFT TISSUES: No masses or calcifications. Lung apices clear. OTHER: No other significant finding. IMPRESSION: Degenerative disc changes at C4-5 and C5-6. No compression deformity. No lytic lesions . TECHNICAL DOCUMENTATION: JOB ID: [id number]- All Rights Reserved Reading location - IP/workstation name: [email or web address]
--- NOTE | 2018-12-18 11:32 | RADIOLOGY REPORT (SQ) ---
EXAM DESCRIPTION: SCAPULA RIGHT COMPLETED DATE/TIME: 12/18/2018 10:25 am REASON FOR STUDY: C90.00 MULTIPLE MYELOMA NOT HAVING ACHIEVED REMISSION C90.00 MULTIPLE MYELOMA NOT HAVING ACHIEVED REMISSION COMPARISON: Skeletal survey 04/30/2017 Chest film 10/27/2018 NUMBER OF VIEWS: two views. TECHNIQUE: AP and Y-view images acquired of the right scapula. LIMITATIONS: None. FINDINGS: MINERALIZATION: Normal. BONES: No acute fracture or dislocation. No worrisome bone lesions. Mild bony spurring at the acromio clavicular joint. GLENOHUMERAL JOINT: No significant findings. ACROMIOCLAVICULAR JOINT: Mild bony spurring at the acromioclavicular joint. SOFT TISSUES: No calcifications. VISUALIZED RIBS, SPINE, AND LUNG: No other significant finding. OTHER: No other significant finding. IMPRESSION: No fracture. No lytic lesions over the right scapula, distal clavicle, proximal humerus , or right upper ribs TECHNICAL DOCUMENTATION: JOB ID: [id number] [employer]- All Rights Reserved Reading location - IP/workstation name: [email or web address]
== END ==
LOC: RAD 10:06
PROVIDERS: ATTEND Nurse Practitioner Adult Health
DX: C90.00 Multiple myeloma not having achieved remission (principal); M50.322 Other cervical disc degeneration at C5-C6 level
CPT/HCPCS: 72040

== ENCOUNTER → 2019-04-03 | Outpatient (CLI) | payer MEDICAID, MEDICARE ==
--- NOTE | 2019-04-03 16:02 | RADIOLOGY REPORT (SQ) ---
EXAM DESCRIPTION: BONE SURVEY COMPLETE COMPLETED DATE/TIME: 04/03/2019 3:31 pm REASON FOR STUDY: C90.00 MULTIPLE MYELOMA NOT HAVING ACHIEVED REMISSION C90.00 MULTIPLE MYELOMA NOT HAVING ACHIEVED REMISSION COMPARISON: None. TECHNIQUE: Images of the axial and proximal appendicular skeleton are obtained, along with lateral s kull and frontal chest films. LIMITATIONS: None. FINDINGS: AP CHEST: No bony findings. Lungs are clear. LATERAL SKULL: No worrisome bone lesions. AP BOTH HUMERI: There appears to be a small lytic lesion in the right humeral diaphysis. TWO-VIEW LUMBAR SPINE: No worrisome bone lesions. TWO-VIEW THORACIC SPINE: No worrisome bone lesions. AP PELVIS: No worrisome bone lesions. AP BOTH FEMURS: No worrisome bone lesions. OTHER: No worrisome bone lesions in the lower legs. IMPRESSION: A small lytic lesion is suggested in the right humeral diaphysis. TECHNICAL DOCUMENTATION: JOB ID: [id number] [employer]- All Rights Reserved Reading location - IP/workstation name: [email or web address]
== END ==
LOC: RAD 14:34
PROVIDERS: ATTEND Internal Medicine Hematology & Oncology
DX: C90.00 Multiple myeloma not having achieved remission (principal)
CPT/HCPCS: 77075

== ENCOUNTER → 2019-04-14 | Outpatient (CLI) | payer MEDICAID, MEDICARE ==
--- NOTE | 2019-04-14 12:56 | RADIOLOGY REPORT (SQ) ---
EXAM DESCRIPTION: NM WHOLE BODY BONE SCAN COMPLETED DATE/TIME: 04/14/2019 12:03 pm REASON FOR STUDY: MYELOMA (C90.00) C90.00 MULTIPLE MYELOMA NOT HAVING ACHIEVED REMISSION COMPARISON: No available imaging studies for comparison. RADIONUCLIDE AND DOSE: 21.7 millicuries Tc99m HDP. The route of agent administration: Intravenous. ADDITIONAL DRUGS AND DOSES: None. TECHNIQUE: Routine delayed images at 3 hour post radionuclide injection acquired of the bony skeleto n including anterior and posterior whole-body projections and additional focused images as needed. LIMITATIONS: None. FINDINGS: BONES: No suspicious areas of abnormal uptake. Symmetric uptake in the shoulders knees an d ankles consistent with degenerative change. KIDNEYS: Symmetric excretion without obstruction. OTHER: No other significant finding. IMPRESSION: No evidence of myeloma or metastatic disease. COMMENT: Quality measure 147: No available prior imaging studies for comparison TECHNICAL DOCUMENTATION: JOB ID: [id number] [employer]- All Rights Reserved Reading location - IP/workstation name: [email or web address]
== END ==
LOC: RAD 08:11
PROVIDERS: ATTEND Internal Medicine Hematology & Oncology
DX: C90.00 Multiple myeloma not having achieved remission (principal)
CPT/HCPCS: 78306; A9561; Q9969

== ENCOUNTER 2019-04-24 09:53 | Emergency (ER) | payer MEDICARE, MEDICAID ==
--- NOTE | 2019-04-24 10:13 | ER Document Report ---
ED Medical Screen (RME) - General Chief Complaint: Head Injury Stated Complaint: FALL/HEAD INJURY Time Seen by Provider: 04/24/19 10:10 Primary Care Provider: SRIRAM GRACE MD [Primary Care Provider] - Follow up as needed Mode of Arrival: Ambulatory Information source: Patient Notes: 58-year-old female presents to ED for head injury. She states that she became dizzy fell in the floor. Patient states she does not remember falling into the floor hitting her head but she does remember waking up in the floor. Patient has a history of multiple myeloma in 2013. 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 She states she smokes about a pack every 2 weeks but she does not want her family to know she smokes because she does not want them harassing her about the cigarettes. Patient is alert and oriented respirations are regular and unlabored she is very tearful about the whole incident. I have greeted and performed a rapid initial assessment of this patient. A comprehensive ED assessment and evaluation of the patient, analysis of test results and completion of medical decision making process will be conducted by an additional ED providers. Dictation of this chart was performed using voice recognition software; therefore, there may be some unintended grammatical errors. TRAVEL OUTSIDE OF THE [place] IN LAST 30 DAYS: No - Related Data Allergies/Adverse Reactions: No Known Drug Allergies Allergy (Verified 04/24/19 09:56) Past Medical History - Past Medical History Cardiac Medical History: Denies: Hx Coronary Artery Disease, Hx Heart Attack, Hx Hypertension Pulmonary Medical History: Denies: Hx Asthma, Hx Bronchitis, Hx COPD, Hx Pneumonia, Hx Tuberculosis Neurological Medical History: Reports: Hx Migraine. Denies: Hx Cerebrovascular Accident, Hx Seizures Renal/ Medical History: Denies: Hx Peritoneal Dialysis Musculoskeltal Medical History: Reports Hx Arthritis - Fingers Psychiatric Medical History: Reports: Hx Depression Past Surgical History: Reports: Hx Cholecystectomy, Hx Orthopedic Surgery, Hx Tubal Ligation - Immunizations Hx Diphtheria, Pertussis, Tetanus Vaccination: Yes History of Influenza Vaccine for 07/2017 - 12/2017 Season: Refused Physical Exam - Vital signs Vitals: Temp Pulse Resp BP Pulse Ox 98 F 89 18 120/86 H 97 04/24/19 09:58 04/24/19 09:58 04/24/19 09:58 04/24/19 09:58 04/24/19 09:58 Course - Vital Signs Vital signs: Temp Pulse Resp BP Pulse Ox 98 F 89 18 120/86 H 97 04/24/19 09:58 04/24/19 09:58 04/24/19 09:58 04/24/19 09:58 04/24/19 09:58 Doctor's Discharge - Discharge Referrals: SRIRAM GRACE MD [Primary Care Provider] - Follow up as needed
--- NOTE | 2019-04-24 11:26 | RADIOLOGY REPORT (SQ) ---
EXAM DESCRIPTION: CT HEAD WITHOUT COMPLETED DATE/TIME: 04/24/2019 11:14 am REASON FOR STUDY: multiple myeloma,dizzy, fell, loc head ache COMPARISON: MRI dated 08/13/2017 TECHNIQUE: Axial images acquired through the brain without intravenous contrast. Images reviewed wi th bone, brain and subdural windows. Additional sagittal and coronal reconstructions were generated. Images stored on PACS. All CT scanners at this facility use dose modulation, iterative reconstruction, and/or weight based d osing when appropriate to reduce radiation dose to as low as reasonably achievable (ALARA). [facility]: Dose Right [facility]: CareDose [facility]: Dose Right [facility]: Teradose 4D [facility]: [employer] RADIATION DOSE: CT Rad equipment meets quality standard of care and radiation dose reduction techniq ues were employed. CTDIvol: 53.2 mGy. DLP: 1070 mGy-cm. mGy. LIMITATIONS: None. FINDINGS: VENTRICLES: Prominent. CEREBRUM: No masses. No hemorrhage. No midline shift. Areas of low density in the white matter mos t likely due to chronic micro-vascular ischemic change. No evidence for acute infarction. CEREBELLUM: No masses. No hemorrhage. No alteration of density. No evidence for acute infarction. EXTRAAXIAL SPACES: Mild age-related involutional change. No fluid collections. No masses. ORBITS AND GLOBE: No intra- or extraconal masses. Normal contour of globe without masses. CALVARIUM: No fracture. PARANASAL SINUSES: No fluid or mucosal thickening. SOFT TISSUES: No mass or hematoma. OTHER: No other significant finding. IMPRESSION: MILD CHRONIC CHANGES OF ATROPHY AND MICROVASCULAR ISCHEMIA. NO ACUTE PROCESS. EVIDENCE OF ACUTE STROKE: NO. TECHNICAL DOCUMENTATION: JOB ID: [id number] Quality ID # [id number]: Final reports with documentation of one or more dose reduction techniques (e.g., Au tomated exposure control, adjustment of the mA and/or kV according to patient size, use of iterative reconstruction technique) 2010 [employer]- All Rights Reserved Reading location - IP/workstation name: [email or web address]
[2019-04-24 12:45] LABS: HEMATOCRIT 33.9 % (36.0-47.0); HEMOGLOBIN 11.4 g/dL (12.0-15.5); MEAN CORPUSCULAR HEMOGLOBIN 32.7 pg (27.0-33.4); MEAN CORPUSCULAR HGB CONC 33.7 g/dL (32.0-36.0); MEAN CORPUSCULAR VOLUME 97 fl (80-97); PLATELET COUNT 212 10^3/uL (150-450); RED BLOOD COUNT 3.49 10^6/uL (3.72-5.28); RED CELL DISTRIBUTION WIDTH 17.7 % (11.5-14.0)
[2019-04-24 12:47] LABS: INTERNATIONAL RATION (INR) 1.03; PROTHROMBIN TIME 13.6 SEC (11.4-15.4)
[2019-04-24 12:48] LABS: PARTIAL THROMBOPLASTIN TIME 47.6 SEC (23.5-35.8)
[2019-04-24 12:58] LABS: ALANINE AMINOTRANSFERASE 21 U/L (9-52); ALBUMIN 3.9 g/dL (3.5-5.0); ALKALINE PHOSPHATASE 46 U/L (38-126); ASPARTATE AMINO TRANSFERASE 23 U/L (14-36); BILIRUBIN,DIRECT 0.2 mg/dL (0.0-0.4); BILIRUBIN,TOTAL 0.3 mg/dL (0.2-1.3); BLOOD UREA NITROGEN 13 mg/dL (7-20); CALCIUM 8.7 mg/dL (8.4-10.2); CHLORIDE 110 mmol/L (98-107); GLUCOSE 94 mg/dL (75-110); POTASSIUM 3.6 mmol/L (3.6-5.0); TOTAL PROTEIN 6.3 g/dL (6.3-8.2)
[2019-04-24 13:09] LABS: CARBON DIOXIDE 26 mmol/L (22-30)
[2019-04-24 13:10] LABS: CREATINE KINASE MB 1.28 ng/mL (<4.55)
[2019-04-24 13:12] LABS: ANION GAP 5 (5-19); TROPONIN I < 0.012 ng/mL
[2019-04-24 13:13] LABS: ABSOLUTE LYMPHOCYTES# (MANUAL) 1.1 10^3/uL (0.5-4.7); ABSOLUTE MONOCYTES # (MANUAL) 0.5 10^3/uL (0.1-1.4); BASOPHILS % (MANUAL) 1 % (0-2); EOSINOPHILS % (MANUAL) 8 % (0-6); LYMPHOCYTES % (MANUAL) 34 % (13-45); MONOCYTES % (MANUAL) 17 % (3-13); SEGMENTED NEUTROPHILS % (MAN) 38 % (42-78); TOTAL CELLS COUNTED 100
[2019-04-24 13:14] LABS: ANISOCYTOSIS 1+; POLYCHROMASIA SLIGHT; TARGET CELLS SLIGHT
[2019-04-24 13:15] LABS: PLATELET COMMENT ADEQUATE
[2019-04-24 15:23] LABS: APPEARANCE,URINE CLEAR; BILIRUBIN,URINE NEGATIVE (NEGATIVE); COLOR,URINE STRAW; GLUCOSE, URINE NEGATIVE (NEGATIVE); KETONES,URINE NEGATIVE (NEGATIVE); LEUKOCYTE ESTERASE,URINE NEGATIVE (NEGATIVE); NITRITE,URINE NEGATIVE (NEGATIVE); PROTEIN,URINE NEGATIVE (NEGATIVE); UROBILINOGEN,URINE NEGATIVE mg/dL (<2.0)
[2019-04-24 17:03] VITALS: BP 132/77
--- NOTE | 2019-04-24 19:15 | ER Document Report ---
Entered by VIKY MOBLEY SCRIBE 04/24/19 1044 Acting as scribe for:ANTONIA LAWRENCE DO ED General - General Chief Complaint: Head Injury Stated Complaint: FALL/HEAD INJURY Time Seen by Provider: 04/24/19 10:10 Primary Care Provider: SRIRAM GRACE MD [ACTIVE STAFF] - Follow up as needed Mode of Arrival: Ambulatory Information source: Patient Notes: 58 year old female with a recent recurrence of multiple myeloma that presents to the emergency department today with complaints of a syncopal event that occurred last night. Patient states that she was cooking dinner last night, began to feel lightheaded, sat down in a chair, and "then woke up on the floor". Patient states that her girlfriend who is with her told her that she "passed out". Patient states she hit her head on a barstool on the way down out of the chair that she was sitting in. Patient states she was told she came to after about about 10 seconds. Patient states when she woke up she was "thirsty and hot" but was able to recognize where she was. Patient is on Eliquis. TRAVEL OUTSIDE OF THE [place] IN LAST 30 DAYS: No - Related Data Allergies/Adverse Reactions: No Known Drug Allergies Allergy (Verified 04/24/19 09:56) Past Medical History - General Information source: Patient - Social History Smoking Status: Current Some Day Smoker Cigarette use (# per day): Yes Chew tobacco use (# tins/day): No Frequency of alcohol use: None Drug Abuse: None Lives with: Family Family History: Reviewed & Not Pertinent, CAD, DM, Hypertension Patient has suicidal ideation: No Patient has homicidal ideation: No Neurological Medical History: Reports: Hx Migraine Malignancy Medical History: Reports: Other - Multiple myeloma Musculoskeletal Medical History: Reports Hx Arthritis - Fingers Psychiatric Medical History: Reports: Hx Depression Past Surgical History: Reports: Hx Cholecystectomy, Hx Orthopedic Surgery, Hx Tubal Ligation - Immunizations Hx Diphtheria, Pertussis, Tetanus Vaccination: Yes Review of Systems - Review of Systems Constitutional: No symptoms reported EENT: See HPI, Other - hit head during syncopal event Cardiovascular: See HPI, Syncope Respiratory: No symptoms reported Gastrointestinal: No symptoms reported Genitourinary: No symptoms reported Female Genitourinary: No symptoms reported Musculoskeletal: No symptoms reported Skin: No symptoms reported Hematologic/Lymphatic: No symptoms reported Neurological/Psychological: No symptoms reported -: Yes All other systems reviewed and negative Physical Exam - Vital signs Vitals: Temp Pulse Resp BP Pulse Ox 98 F 89 18 120/86 H 97 04/24/19 09:58 04/24/19 09:58 04/24/19 09:58 04/24/19 09:58 04/24/19 09:58 - Notes Notes: PHYSICAL EXAM GENERAL: Alert, interacts well. No acute distress. Becomes tearful when discussing reoccurrence of cancer. HEAD: Normocephalic. Superficial abrasion over the right forehead. EYES: Pupils equal, round, and reactive to light. Extraocular movements intact. Slight exophthalmos. ENT: Oral mucosa moist, tongue midline. NECK: Full range of motion. Supple. Trachea midline. CHEST: Port in the left upper chest. LUNGS: Clear to auscultation bilaterally, no wheezes, rales, or rhonchi. No respiratory distress. HEART: Regular rate and rhythm. No murmurs, gallops, or rubs. ABDOMEN: Soft, non-tender. Non-distended. Bowel sounds present in all 4 quadrant s. No guarding, rigidity, or rebound. EXTREMITIES: Moves all 4 extremities spontaneously. No edema, radial and dorsalis pedis pulses 2/4 bilaterally. No cyanosis. NEUROLOGICAL: Alert and oriented x3. Normal speech. Biceps and patellar DTRs 2+ bilaterally. Cranial nerves II through XII grossly intact. PSYCH: Normal affect, normal mood. See general. SKIN: Warm, dry, normal turgor. Course - Re-evaluation Re-evalutation: 04/24/19 11:46 Initially held off on accessing the port due to the need to use heparin. CT scan of the head negative for bleed. We will access the port. 04/24/19 16:16 CT scan shows no acute process, CBC shows leukopenia with white count of 3.0 and anemia with hemoglobin 11.4, platelets normal, there is a monocytosis, coags remarkably normal, chemistries grossly unremarkable, cardiac enzymes negative x1 , urinalysis shows small blood but no signs of infection. EKG is nonischemic. Patient is completely asymptomatic, patient only had one syncopal episode last evening. Has not had any symptoms since then. I will discuss this patient with Dr. Lowry for further management recommendations 04/24/19 16:[address] Lowry, she had no additional etiologies of syncope that would be caused by multiple myeloma. Nor did she have any specific multiply myeloma- related management advice. At this point discussed with patient a 24-hour period of observation on a monitor versus discharged home as it has been almost 24 hours since she syncopized, patient will prefer to be discharged home, will return for recurrent syncope, will be staying with her sister sravanthi and will follow-up with [place] on Sunday. - Vital Signs Vital signs: Temp Pulse Resp BP Pulse Ox 98.5 F 73 21 H 132/77 H 100 04/24/19 17:02 04/24/19 17:02 04/24/19 17:02 04/24/19 17:02 04/24/19 17:02 - Laboratory Result Diagrams: 04/24/19 12:15 04/24/19 12:15 Laboratory results interpreted by me: 04/24/19 04/24/19 04/24/19 12:15 12:15 12:15 WBC 3.0 L RBC 3.49 L Hgb 11.4 L Hct 33.9 L RDW 17.7 H Seg Neuts % (Manual) 38 L Monocytes % (Manual) 17 H Eosinophils % (Manual) 8 H Abs Neuts (Manual) 1.1 L APTT 47.6 H Chloride 110 H Urine Blood 04/24/19 14:54 WBC RBC Hgb Hct RDW Seg Neuts % (Manual) Monocytes % (Manual) Eosinophils % (Manual) Abs Neuts (Manual) APTT Chloride Urine Blood SMALL H - EKG Interpretation by Me Additional EKG results interpreted by me: 04/24/19 16:17 EKG shows sinus rhythm at a rate of 96 with multiple PVCs and a few PACs, IN interval is borderline prolonged at 200, left axis deviation, no ST segment elev ations or depressions, no T wave inversions, normal R wave progression per my interpretation. Discharge - Discharge Clinical Impression: Syncope Qualifiers: Syncope type: unspecified Qualified Code(s): R55 - Syncope and collapse Multiple myeloma Qualifiers: Multiple myeloma remission status: not in remission Qualified Code(s): C90.00 - Multiple myeloma not having achieved remission Condition: Stable Disposition: HOME, SELF-CARE Additional Instructions: Syncopal Episode Syncope (fainting or near-fainting) can occur from many different health problems. Or it can be a simple fainting spell requiring no treatment. It is safe for you to go home, but further evaluation will likely be necessary. Your work-up may include tests for internal bleeding, heart disease, medication problems, or near-strokes. Tests are not always required, however, depending on the nature of your problem. The warning signs of an impending faint include: dizziness, lightheadedness, nausea, hot flashes, tingling, and weakness. If this happens, lay down and put your feet up, then wait until all of these symptoms have passed before standing up again. If these episodes become recurrent, or if you develop chest pain, heart palpitations, mental confusion, blurred vision, or headache, then you should call the physician, or go to the emergency room. Please return to the ED if you pass out again. Please keep your follow-up appointment with [facility] on Sunday. Referrals: SRIRAM GRACE MD [ACTIVE STAFF] - Follow up as needed I personally performed the services described in the documentation, reviewed and edited the documentation which was dictated to the scribe in my presence, and it accurately records my words and actions.
--- NOTE | 2019-04-24 20:04 | EKG REPORT ---
SEVERITY:- ABNORMAL ECG - SINUS RHYTHM VENTRICULAR PREMATURE COMPLEXE LEFT VENTRICULAR HYPERTROPHY : Confirmed by: Claudette Levine MD 24-Apr-2019 20:03:33
== END 2019-04-24 17:20 | disposition home or self-care (01) ==
LOC: ER 09:53
DX: R55 Syncope and collapse (principal); C90.00 Multiple myeloma not having achieved remission; S00.81XA Abrasion of other part of head, initial encounter; W07.XXXA Fall from chair, initial encounter; W22.03XA Walked into furniture, initial encounter; Y93.G3 Activity, cooking and baking; D64.9 Anemia, unspecified; I49.3 Ventricular premature depolarization; I49.1 Atrial premature depolarization; F17.210 Nicotine dependence, cigarettes, uncomplicated; Z79.02 Long term (current) use of antithrombotics/antiplatelets
CPT/HCPCS: 93005; 36591; 99284; 36415; 82553; 85025; 85610; 85730; 80053; 81001; 84484; 70450; 93010; J1642

== ENCOUNTER 2019-12-30 08:54 | Outpatient (CLI) | payer MEDICARE, MEDICAID ==
[~2019-12-30 08:54] MED LIST changes: +BENDAMUSTINE HCL IV PRN; +BORTEZOMIB IV PRN; +DEXAMETHASONE SOD PHOSPHATE 10 MG in NORMAL SALINE 50 ML IV PRN; +DISPOSABLE IV PRN; +NORMAL SALINE 1000 ML 1,000 ML IV PRN; -NORMAL SALINE 250 ML IV PRN; +NORMAL SALINE IV PRN
[2019-12-30 09:26] VITALS: BP 103/68
[2019-12-30] MEDS: MAGNESIUM SULFATE 1 GM/D5W 100 ML IV SCH ×2 (09:48→10:52)
[2019-12-30] MEDS ORDERED: DISPOSABLE SUBCUT PRN (10:54)
[2019-12-30] MEDS ORDERED: BORTEZOMIB SUBCUT PRN (10:54)
== END 2019-12-30 12:30 | disposition home or self-care (01) ==
LOC: II 08:54 → 5TH 08:55 → II 12:30
PROVIDERS: ATTEND Internal Medicine Hematology & Oncology
DX: Z51.11 Encounter for antineoplastic chemotherapy (principal); C90.00 Multiple myeloma not having achieved remission; E83.42 Hypomagnesemia
CPT/HCPCS: 96401; 96409; 96367; J3475; J3490; J1100; J9041; J1642; J9034

== ENCOUNTER 2020-01-02 10:25 | Outpatient (CLI) | payer MEDICARE, MEDICAID ==
[~2020-01-02 10:25] MED LIST changes: -BORTEZOMIB IV PRN; +BORTEZOMIB SUBCUT PRN; -DEXAMETHASONE SOD PHOSPHATE 10 MG in NORMAL SALINE 50 ML IV PRN; -DISPOSABLE IV PRN; +DISPOSABLE SUBCUT PRN
[2020-01-02 11:07] VITALS: BP 119/70
== END 2020-01-02 12:22 | disposition home or self-care (01) ==
LOC: II 10:25 → 5TH 10:49 → II 12:22
PROVIDERS: ATTEND Internal Medicine Hematology & Oncology
DX: Z51.11 Encounter for antineoplastic chemotherapy (principal); C90.00 Multiple myeloma not having achieved remission
CPT/HCPCS: 96401; 96409; J3490; J9041; J1642; J9034

== ENCOUNTER 2020-01-03 12:35 | Outpatient (CLI) | payer MEDICARE, MEDICAID ==
[~2020-01-03 12:35] MED LIST changes: -BENDAMUSTINE HCL IV PRN; -BORTEZOMIB SUBCUT PRN; -DISPOSABLE SUBCUT PRN; -NORMAL SALINE 1000 ML 1,000 ML IV PRN; -NORMAL SALINE IV PRN; +PEGFILGRASTIM-CBQV 6 MG/0.6 ML SYRINGE SUBCUT PRN
[2020-01-03 15:40] VITALS: BP 120/63
== END 2020-01-03 14:40 | disposition home or self-care (01) ==
LOC: II 12:35
PROVIDERS: ATTEND Internal Medicine Hematology & Oncology
DX: Z76.89 Persons encountering health services in other specified circumstances (principal); C90.00 Multiple myeloma not having achieved remission
CPT/HCPCS: 96372; Q5111

== ENCOUNTER 2020-01-06 08:47 | Outpatient (CLI) | payer MEDICARE, MEDICAID ==
[~2020-01-06 08:47] MED LIST changes: +BORTEZOMIB SUBCUT PRN; +DISPOSABLE SUBCUT PRN; -PEGFILGRASTIM-CBQV 6 MG/0.6 ML SYRINGE SUBCUT PRN
[2020-01-06] MEDS ORDERED: DISPOSABLE IV PRN ×2 (09:04→09:07)
[2020-01-06] MEDS ORDERED: BORTEZOMIB IV PRN ×2 (09:04→09:07)
[2020-01-06] MEDS ORDERED: NORMAL SALINE 250 ML IV PRN (09:08)
[2020-01-06 09:15] VITALS: BP 110/70
== END 2020-01-06 12:36 | disposition home or self-care (01) ==
LOC: ASU 08:47 → 5TH 08:49 → ASU 12:36
PROVIDERS: ATTEND Internal Medicine Hematology & Oncology
DX: Z51.11 Encounter for antineoplastic chemotherapy (principal); C90.00 Multiple myeloma not having achieved remission
CPT/HCPCS: 96409; J3490; J9041; J1642

== ENCOUNTER 2020-01-09 08:57 | Outpatient (CLI) | payer MEDICARE, MEDICAID ==
[2020-01-09 10:02] VITALS: BP 137/78
== END 2020-01-09 11:00 | disposition home or self-care (01) ==
LOC: II 08:57 → 5TH 08:59 → II 11:00
PROVIDERS: ATTEND Internal Medicine Hematology & Oncology
DX: Z51.11 Encounter for antineoplastic chemotherapy (principal); C90.00 Multiple myeloma not having achieved remission
CPT/HCPCS: 96401; J3490; J9041

== ENCOUNTER 2020-01-27 09:03 | Outpatient (CLI) | payer MEDICARE, MEDICAID ==
[~2020-01-27 09:03] MED LIST changes: +BENDAMUSTINE HCL IV PRN; +DEXAMETHASONE 10 MG in NS 50 ML IV PRN; +NORMAL SALINE 1000 ML 1,000 ML IV PRN; +NORMAL SALINE IV PRN
[2020-01-27 09:10] VITALS: BP 89/72
[2020-01-27] MEDS: MAGNESIUM SULFATE 1 GM/D5W 100 ML IV SCH ×2 (10:25→11:27)
[2020-01-27] MEDS ORDERED: MAGNESIUM SULFATE/D5W 1 GM/100 ML RTUPB IV ONE (10:37)
== END 2020-01-27 13:00 | disposition home or self-care (01) ==
LOC: II 09:03 → 5TH 09:19 → II 13:00
PROVIDERS: ATTEND Internal Medicine Hematology & Oncology
DX: Z51.11 Encounter for antineoplastic chemotherapy (principal); C90.00 Multiple myeloma not having achieved remission
CPT/HCPCS: 96401; 96409; 96366; 96367; 96361; J3475; J3490; J1100; J9041; J1642; J9034

== ENCOUNTER 2020-01-30 08:45 | Outpatient (CLI) | payer MEDICARE, MEDICAID ==
[2020-01-30] MEDS ORDERED: NORMAL SALINE IV PRN (08:58)
[2020-01-30] MEDS ORDERED: BENDAMUSTINE HCL IV PRN (08:58)
[2020-01-30] MEDS ORDERED: NORMAL SALINE 1000 ML 1,000 ML IV PRN (08:59)
[2020-01-30] MEDS ORDERED: DISPOSABLE SUBCUT PRN (09:00)
[2020-01-30] MEDS ORDERED: BORTEZOMIB SUBCUT PRN (09:00)
[2020-01-30] MEDS ORDERED: DEXAMETHASONE 10 MG in NS 50 ML IV PRN (09:01)
[2020-01-30 09:11] VITALS: BP 131/76
== END 2020-01-30 11:00 | disposition home or self-care (01) ==
LOC: II 08:45 → 5TH 08:46 → II 11:00
PROVIDERS: ATTEND Internal Medicine Hematology & Oncology
DX: Z51.11 Encounter for antineoplastic chemotherapy (principal); C90.00 Multiple myeloma not having achieved remission
CPT/HCPCS: 96401; 96409; 96367; J3490; J1100; J9041; J1642; J9034; 96361

== ENCOUNTER 2020-01-31 10:38 | Outpatient (CLI) | payer MEDICARE, MEDICAID ==
[~2020-01-31 10:38] MED LIST changes: +PEGFILGRASTIM-CBQV 6 MG/0.6 ML SYRINGE SUBCUT PRN
[2020-01-31 10:48] VITALS: BP 129/75
== END 2020-01-31 11:35 | disposition home or self-care (01) ==
LOC: II 10:38 → 2N 10:38 → II 11:35
PROVIDERS: ATTEND Internal Medicine Hematology & Oncology
DX: Z51.11 Encounter for antineoplastic chemotherapy (principal); C90.00 Multiple myeloma not having achieved remission
CPT/HCPCS: 96372; Q5111; J1100; J3490; J9034; J9041

== ENCOUNTER 2020-02-03 10:02 | Outpatient (CLI) | payer MEDICARE, MEDICAID ==
[~2020-02-03 10:02] MED LIST changes: -BENDAMUSTINE HCL IV PRN; -DEXAMETHASONE 10 MG in NS 50 ML IV PRN; -NORMAL SALINE 1000 ML 1,000 ML IV PRN; -NORMAL SALINE IV PRN; -PEGFILGRASTIM-CBQV 6 MG/0.6 ML SYRINGE SUBCUT PRN
[2020-02-03 10:30] VITALS: BP 106/66
== END 2020-02-03 10:58 | disposition home or self-care (01) ==
LOC: II 10:02 → 5TH 10:12 → II 10:58
PROVIDERS: ATTEND Internal Medicine Hematology & Oncology
DX: Z51.11 Encounter for antineoplastic chemotherapy (principal); C90.00 Multiple myeloma not having achieved remission
CPT/HCPCS: 96401; J3490; J9041

== ENCOUNTER 2020-02-06 09:39 | Outpatient (CLI) | payer MEDICARE, MEDICAID ==
[2020-02-06 10:23] VITALS: BP 140/83
== END 2020-02-06 10:46 | disposition home or self-care (01) ==
LOC: II 09:39 → 5TH 09:40 → II 10:46
PROVIDERS: ATTEND Internal Medicine Hematology & Oncology
DX: Z51.11 Encounter for antineoplastic chemotherapy (principal); C90.00 Multiple myeloma not having achieved remission
CPT/HCPCS: 96401; J3490; J9041

== ENCOUNTER 2020-02-24 08:54 | Outpatient (CLI) | payer MEDICARE, MEDICAID ==
[~2020-02-24 08:54] MED LIST changes: +BENDAMUSTINE HCL IV PRN; +DEXAMETHASONE 10 MG in NS 50 ML IV PRN; +NORMAL SALINE 1000 ML @ AS DIRECTED IV PRN; +NORMAL SALINE IV PRN
[2020-02-24] MEDS: MAGNESIUM SULFATE 1 GM/D5W 100 ML IV PRN ×2 (09:16→10:19)
[2020-02-24 10:39] VITALS: BP 118/79
== END 2020-02-24 12:45 | disposition home or self-care (01) ==
LOC: II 08:54 → 5TH 08:56 → II 12:45
PROVIDERS: ATTEND Internal Medicine Hematology & Oncology
DX: Z51.11 Encounter for antineoplastic chemotherapy (principal); C90.00 Multiple myeloma not having achieved remission
CPT/HCPCS: 96401; 96409; 96367; J3475; J3490; J1100; J9041; J1642; J9034; 96366

== ENCOUNTER 2020-02-27 08:58 | Outpatient (CLI) | payer MEDICARE, MEDICAID ==
[2020-02-27 09:10] VITALS: BP 142/95
== END 2020-02-27 11:45 | disposition home or self-care (01) ==
LOC: II 08:58 → 5TH 09:00 → II 11:45
PROVIDERS: ATTEND Internal Medicine Hematology & Oncology
DX: Z51.11 Encounter for antineoplastic chemotherapy (principal); C90.00 Multiple myeloma not having achieved remission
CPT/HCPCS: 96401; 96409; 96367; J3490; J1100; J9041; J1642; J9034

== ENCOUNTER 2020-02-28 10:59 | Outpatient (CLI) | payer MEDICARE, MEDICAID ==
[~2020-02-28 10:59] MED LIST changes: -BENDAMUSTINE HCL IV PRN; -BORTEZOMIB SUBCUT PRN; -DEXAMETHASONE 10 MG in NS 50 ML IV PRN; -DISPOSABLE SUBCUT PRN; -NORMAL SALINE 1000 ML @ AS DIRECTED IV PRN; -NORMAL SALINE IV PRN; +PEGFILGRASTIM-CBQV 6 MG/0.6 ML SYRINGE SUBCUT PRN
== END 2020-02-28 11:26 | disposition home or self-care (01) ==
LOC: II 10:59 → 2N 11:00 → II 11:26
PROVIDERS: ATTEND Internal Medicine
DX: Z76.89 Persons encountering health services in other specified circumstances (principal); C90.00 Multiple myeloma not having achieved remission
CPT/HCPCS: 96372; Q5111

== ENCOUNTER 2020-03-02 09:17 | Outpatient (CLI) | payer MEDICARE, MEDICAID ==
[~2020-03-02 09:17] MED LIST changes: +BORTEZOMIB SUBCUT PRN; +DISPOSABLE SUBCUT PRN; +NORMAL SALINE 1000 ML 1,000 ML IV PRN; -PEGFILGRASTIM-CBQV 6 MG/0.6 ML SYRINGE SUBCUT PRN
[2020-03-02 09:30] VITALS: BP 109/95
== END 2020-03-02 10:47 | disposition home or self-care (01) ==
LOC: II 09:17 → 5TH 09:18 → II 10:47
PROVIDERS: ATTEND Internal Medicine Hematology & Oncology
DX: C90.00 Multiple myeloma not having achieved remission (principal)
CPT/HCPCS: 96360; J1642

== ENCOUNTER → 2020-03-02 | Outpatient (CLI) | payer MEDICAID, MEDICARE ==
--- NOTE | 2020-03-02 11:07 | RADIOLOGY REPORT (SQ) ---
EXAM DESCRIPTION: CHEST 2 VIEWS IMAGES COMPLETED DATE/TIME: 03/02/2020 10:54 am REASON FOR STUDY: (R07.9)CHEST PAIN, UNSPECIFIED;(R06.02)SHORTNESS OF BREATH COMPARISON: 11/06/2019 EXAM PARAMETERS: NUMBER OF VIEWS: two views TECHNIQUE: Digital Frontal and Lateral radiographic views of the chest acquired. RADIATION DOSE: NA LIMITATIONS: none FINDINGS: LUNGS AND PLEURA: No opacities, masses or pneumothorax. No pleural effusion. MEDIASTINUM AND HILAR STRUCTURES: No masses or contour abnormalities. HEART AND VASCULAR STRUCTURES: Borderline enlarged, stable. No evidence for failure. BONES: No acute findings. HARDWARE: Left internal jugular base chest port with catheter tip at cavoatrial junction. OTHER: No other significant finding. IMPRESSION: No evidence of acute cardiopulmonary process. Left internal jugular based chest port with catheter tip at cavoatrial junction. No pneumothorax. TECHNICAL DOCUMENTATION: JOB ID: [id number] 2010 [employer]- All Rights Reserved Reading location - IP/workstation name: [email or web address]
== END ==
LOC: RAD 10:38
PROVIDERS: ATTEND Internal Medicine Hematology & Oncology
DX: R07.9 Chest pain, unspecified (principal); R06.02 Shortness of breath
CPT/HCPCS: 71046

== ENCOUNTER 2020-03-23 08:33 | Outpatient (CLI) | payer MEDICARE, MEDICAID ==
[~2020-03-23 08:33] MED LIST changes: +BENDAMUSTINE HCL IV PRN; +DEXAMETHASONE SOD PHOSPHATE 10 MG in NORMAL SALINE 50 ML IV PRN; +NORMAL SALINE IV PRN
[2020-03-23] MEDS: MAGNESIUM SULFATE 1 GM/D5W 100 ML IV PRN ×2 (08:50→09:40)
[2020-03-23 09:21] VITALS: BP 105/69
== END 2020-03-23 11:45 | disposition home or self-care (01) ==
LOC: II 08:33 → 5TH 08:35 → II 11:45
PROVIDERS: ATTEND Internal Medicine Hematology & Oncology
DX: Z51.11 Encounter for antineoplastic chemotherapy (principal); C90.00 Multiple myeloma not having achieved remission
CPT/HCPCS: 96401; 96409; 96367; 96361; J3475; J3490; J1100; J9041; J1642; J9034; 96366

== ENCOUNTER 2020-03-26 08:59 | Outpatient (CLI) | payer MEDICARE, MEDICAID ==
[2020-03-26 09:18] VITALS: BP 129/84
== END 2020-03-26 11:01 | disposition home or self-care (01) ==
LOC: II 08:59 → 5TH 09:00 → II 11:01
PROVIDERS: ATTEND Internal Medicine Hematology & Oncology
DX: Z51.11 Encounter for antineoplastic chemotherapy (principal); C90.00 Multiple myeloma not having achieved remission
CPT/HCPCS: 96401; 96409; 96367; J3490; J1100; J9041; J1642; J9034

== ENCOUNTER 2020-03-27 10:50 | Outpatient (CLI) | payer MEDICARE, MEDICAID ==
[~2020-03-27 10:50] MED LIST changes: -BENDAMUSTINE HCL IV PRN; -BORTEZOMIB SUBCUT PRN; -DEXAMETHASONE SOD PHOSPHATE 10 MG in NORMAL SALINE 50 ML IV PRN; -DISPOSABLE SUBCUT PRN; -NORMAL SALINE 1000 ML 1,000 ML IV PRN; -NORMAL SALINE IV PRN; +PEGFILGRASTIM-CBQV 6 MG/0.6 ML SYRINGE SUBCUT PRN
[2020-03-27 11:27] VITALS: BP 128/85
== END 2020-03-27 12:59 | disposition home or self-care (01) ==
LOC: II 10:50 → 2N 10:50 → II 12:59
PROVIDERS: ATTEND Internal Medicine
DX: Z76.89 Persons encountering health services in other specified circumstances (principal); C90.00 Multiple myeloma not having achieved remission
CPT/HCPCS: 96372; Q5111

== ENCOUNTER 2020-03-30 09:05 | Outpatient (CLI) | payer MEDICARE, MEDICAID ==
[~2020-03-30 09:05] MED LIST changes: +BORTEZOMIB SUBCUT PRN; +DISPOSABLE SUBCUT PRN; +NORMAL SALINE 250 ML IV PRN; -PEGFILGRASTIM-CBQV 6 MG/0.6 ML SYRINGE SUBCUT PRN
[2020-03-30] MEDS: MAGNESIUM SULFATE 1 GM/D5W 100 ML IV PRN ×2 (09:21→10:14)
[2020-03-30 09:50] VITALS: BP 111/76
== END 2020-03-30 11:53 | disposition home or self-care (01) ==
LOC: II 09:05 → 5TH 09:07 → II 11:53
PROVIDERS: ATTEND Internal Medicine Hematology & Oncology
DX: Z51.11 Encounter for antineoplastic chemotherapy (principal); C90.00 Multiple myeloma not having achieved remission
CPT/HCPCS: 96401; 96365; 96366; J3475; J3490; J9041; J1642; 96367

== ENCOUNTER 2020-04-02 09:18 | Outpatient (CLI) | payer MEDICARE, MEDICAID ==
[~2020-04-02 09:18] MED LIST changes: -NORMAL SALINE 250 ML IV PRN
[2020-04-02] MEDS ORDERED: NORMAL SALINE 1000 ML 1,000 ML IV PRN (09:40)
[2020-04-02 10:13] VITALS: BP 118/74
== END 2020-04-02 10:42 | disposition home or self-care (01) ==
LOC: II 09:18 → 5TH 09:23 → II 10:42
PROVIDERS: ATTEND Internal Medicine Hematology & Oncology
DX: Z51.11 Encounter for antineoplastic chemotherapy (principal); C90.00 Multiple myeloma not having achieved remission
CPT/HCPCS: 96401; 96361; J3490; J9041; J1642; 96360

== ENCOUNTER 2020-04-20 09:13 | Outpatient (CLI) | payer MEDICARE, MEDICAID ==
[~2020-04-20 09:13] MED LIST changes: +BENDAMUSTINE HCL IV PRN; +DEXAMETHASONE 10 MG in NS 50 ML IV PRN; +NORMAL SALINE 1000 ML @ AS DIRECTED IV PRN; +NORMAL SALINE IV PRN; +POTASSIUM CHLORIDE 20 MEQ/50 ML RTU IV PRN
[2020-04-20 09:31] VITALS: BP 119/81
== END 2020-04-20 12:48 | disposition home or self-care (01) ==
LOC: II 09:13 → 5TH 09:16 → II 12:48
PROVIDERS: ATTEND Internal Medicine Hematology & Oncology
DX: Z51.11 Encounter for antineoplastic chemotherapy (principal); C90.00 Multiple myeloma not having achieved remission
CPT/HCPCS: 96401; 96409; 96366; 96367; 96361; J3480; J3490; J1100; J9041; J1642; J9034

== ENCOUNTER 2020-04-23 09:10 | Outpatient (CLI) | payer MEDICARE, MEDICAID ==
[2020-04-23] MEDS ORDERED: NORMAL SALINE 1000 ML 1,000 ML IV PRN (09:29)
[2020-04-23] MEDS ORDERED: ONDANSETRON HCL/PF 16 MG, DEXAMETHASONE SOD PHOSPHATE 10 MG in NORMAL SALINE 50 ML IV PRN (10:15)
[2020-04-23 10:58] VITALS: BP 119/86
== END 2020-04-23 11:43 | disposition home or self-care (01) ==
LOC: II 09:10 → 5TH 09:11 → II 11:43
PROVIDERS: ATTEND Internal Medicine Hematology & Oncology
DX: Z51.11 Encounter for antineoplastic chemotherapy (principal); C90.00 Multiple myeloma not having achieved remission
CPT/HCPCS: 96401; 96409; 96367; J2405; J3480; J3490; J1100; J9041; J1642; J9034; 96366

== ENCOUNTER 2020-04-24 12:47 | Outpatient (CLI) | payer MEDICARE, MEDICAID ==
[~2020-04-24 12:47] MED LIST changes: -BENDAMUSTINE HCL IV PRN; -BORTEZOMIB SUBCUT PRN; -DEXAMETHASONE 10 MG in NS 50 ML IV PRN; -DISPOSABLE SUBCUT PRN; -NORMAL SALINE 1000 ML @ AS DIRECTED IV PRN; -NORMAL SALINE IV PRN; +PEGFILGRASTIM-CBQV 6 MG/0.6 ML SYRINGE SUBCUT PRN; -POTASSIUM CHLORIDE 20 MEQ/50 ML RTU IV PRN
[2020-04-24 13:27] VITALS: BP 127/84
== END 2020-04-24 14:01 | disposition home or self-care (01) ==
LOC: II 12:47 → 2S 12:48 → II 14:01
PROVIDERS: ATTEND Internal Medicine Hematology & Oncology
DX: Z76.89 Persons encountering health services in other specified circumstances (principal); C90.00 Multiple myeloma not having achieved remission
CPT/HCPCS: 96372; Q5111

== ENCOUNTER 2020-04-26 10:21 | Emergency (ER) | payer MEDICARE, MEDICAID ==
[2020-04-26 11:49] LABS: ALBUMIN 3.7 g/dL (3.5-5.0); ALKALINE PHOSPHATASE 67 U/L (38-126); ANION GAP 7 (5-19); ASPARTATE AMINO TRANSFERASE 16 U/L (14-36); BILIRUBIN,TOTAL 0.5 mg/dL (0.2-1.3); BLOOD UREA NITROGEN 13 mg/dL (7-20); CALCIUM 8.2 mg/dL (8.4-10.2); CARBON DIOXIDE 26 mmol/L (22-30); CHLORIDE 107 mmol/L (98-107); GLUCOSE 89 mg/dL (75-110); TOTAL PROTEIN 6.7 g/dL (6.3-8.2)
[2020-04-26] MEDS ORDERED: MORPHINE SULFATE 10 MG/ML INJ IV ONE ×2 (11:49→15:20)
[2020-04-26] MEDS ORDERED: ONDANSETRON HCL INJ/PF 4 MG/2 ML SDV IV ONE ×2 (11:49→17:01)
[2020-04-26 11:50] LABS: POTASSIUM 2.5 mmol/L (3.6-5.0)
--- NOTE | 2020-04-26 12:25 | RADIOLOGY REPORT (SQ) ---
EXAM DESCRIPTION: CTA CHEST IMAGES COMPLETED DATE/TIME: 04/26/2020 12:14 pm REASON FOR STUDY: cp/sob COMPARISON: None. TECHNIQUE: CT scan of the chest performed using helical scanning technique with dynamic intravenous contrast injection. Images reviewed with lung, soft tissue and bone windows. Reconstructed coronal and sagittal MPR images reviewed. Additional 3 dimensional post-processing performed to develop Maximal Intensity Projection images (SC P). All images stored on PACS. All CT scanners at this facility use dose modulation, iterative reconstruction, and/or weight based d osing when appropriate to reduce radiation dose to as low as reasonably achievable (ALARA). [facility]: Dose Right [facility]: CareDose [facility]: Dose Right [facility]: Teradose 4D [facility]: Innobits CONTRAST TYPE AND DOSE: contrast/concentration: Isovue 350.00 mmol/ml; Total Contrast Delivered: 63. 0 ml; Total Saline Delivered: 70.0 ml Contrast bolus adequate for pulmonary arteries and aorta. RENAL FUNCTION: BUN 13, creatinine 0.84 RADIATION DOSE: CT Rad equipment meets quality standard of care and radiation dose reduction techniq ues were employed. CTDIvol: 6.6 - 14.4 mGy. DLP: 549 mGy-cm. . LIMITATIONS: None. FINDINGS: LUNGS AND PLEURA: No consolidation. Mild subpleural ground-glass opacity in the periphery of the right upper lobe best demonstrated on series 4, image 39. This is nonspecific possibly scar. No pleural effusions. No suspicious pulmonary nodules. AORTA AND GREAT VESSELS: No aneurysm. Contrast bolus not optimized for the aorta. HEART: Small pericardial effusion. No significant coronary artery calcifications. PULMONARY ARTERIES: No emboli visualized in the main pulmonary arteries or the segmental branches. HILAR AND MEDIASTINAL STRUCTURES: No identified masses or abnormal nodes. HARDWARE: Kqujfh-P-Czci is in place. UPPER ABDOMEN: Decreased attenuation throughout the liver consistent with fatty infiltration. THYROID AND OTHER SOFT TISSUES: No masses. No adenopathy. BONES: No acute or significant finding. 3D MIPS: Confirm above findings. OTHER: No other significant finding. IMPRESSION: No pulmonary emboli. No suspicious findings in the chest. COMMENT: Quality ID # [id number]: Final reports with documentation of one or more dose reduction techniques (e.g., Automated exposure control, adjustment of the mA and/or kV according to patient size, use of iterative reconstruction technique) TECHNICAL DOCUMENTATION: JOB ID: [id number] 2010 [employer]- All Rights Reserved Reading location - IP/workstation name: [email or web address]
[2020-04-26 13:13] LABS: HEMATOCRIT 30.5 % (36.0-47.0); HEMOGLOBIN 10.6 g/dL (12.0-15.5); MEAN CORPUSCULAR HEMOGLOBIN 34.6 pg (27.0-33.4); MEAN CORPUSCULAR HGB CONC 34.7 g/dL (32.0-36.0); MEAN CORPUSCULAR VOLUME 100 fl (80-97); RED BLOOD COUNT 3.07 10^6/uL (3.72-5.28)
[2020-04-26] MEDS: POTASSI CL 20 MEQ/50 ML RIDER 20 MEQ/50 ML RTUPB IV SCH ×3 (13:34→18:20)
[2020-04-26 13:41] LABS: PLATELET COUNT 61 10^3/uL (150-450)
[2020-04-26 13:42] LABS: WHITE BLOOD COUNT 31.7 10^3/uL (4.0-10.5)
[2020-04-26 13:44] LABS: ABSOLUTE MONOCYTES # (MANUAL) 1.6 10^3/uL (0.1-1.4); BAND NEUTROPHILS % (MANUAL) 1 % (3-5); BASOPHILS % (MANUAL) 0 % (0-2); EOSINOPHILS % (MANUAL) 0 % (0-6); LYMPHOCYTES % (MANUAL) 0 % (13-45); MONOCYTES % (MANUAL) 5 % (3-13); NUCLEATED RED BLOOD CELLS 2 /100 WBC (0); SEGMENTED NEUTROPHILS % (MAN) 94 % (42-78); TOTAL CELLS COUNTED 100
[2020-04-26 13:48] LABS: ANISOCYTOSIS SLIGHT; PLATELET COMMENT DECREASED; POIKILOCYTOSIS SLIGHT; SCHISTOCYTES SLIGHT; TEAR DROP CELLS SLIGHT
--- NOTE | 2020-04-26 15:26 | ER Document Report ---
ED General - General Chief Complaint: Near Syncope Stated Complaint: DIZZINESS Time Seen by Provider: 04/26/20 10:48 Primary Care Provider: JUANCARLOS VO PA [Primary Care Provider] - Follow up as needed Mode of Arrival: Medic Information source: Patient TRAVEL OUTSIDE OF THE [place] IN LAST 30 DAYS: No - HPI Notes: Patient arrives complaining of dizziness nausea and vomiting. She states she has had the vomiting for approximately 4 days. Although she has had no vomiting today. She is also been had some weakness and some near syncope she states. She states she has not passed out but she has felt like it several times over t he last few days. She states that she has had chronic diarrhea for years after having her gallbladder removed and this is not changed. She also states that yesterday she began to have some chest pain that has now disappeared but she does have some upper back pain. She is also had some shortness of breath with this that is been admitted. The chest pain did radiate to the back. It was sharp. It is located in the sternal area and centrally. It was moderate in intensity. Nothing to make it better or worse. She does have a history of multiple myeloma and is followed here in town by oncology. Patient states that she had a bone marrow transplant 2013 and is currently on rejection medications. She states she has also taken a blood thinner and has never been diagnosed with any type of clots. - Related Data Allergies/Adverse Reactions: No Known Drug Allergies Allergy (Verified 04/26/20 11:26) Past Medical History - General Information source: Patient - Social History Smoking Status: Never Smoker Family History: Reviewed & Not Pertinent, CAD, DM, Hypertension - Past Medical History Cardiac Medical History: Denies: Hx Coronary Artery Disease, Hx Heart Attack, Hx Hypertension Pulmonary Medical History: Denies: Hx Asthma, Hx Bronchitis, Hx COPD, Hx Pneumonia, Hx Tuberculosis Neurological Medical History: Reports: Hx Migraine. Denies: Hx Cerebrovascular Accident, Hx Seizures Renal/ Medical History: Denies: Hx Peritoneal Dialysis Musculoskeletal Medical History: Reports Hx Arthritis - Fingers Psychiatric Medical History: Reports: Hx Depression Past Surgical History: Reports: Hx Cholecystectomy, Hx Orthopedic Surgery, Hx Tubal Ligation - Immunizations Hx Diphtheria, Pertussis, Tetanus Vaccination: Yes Review of Systems - Review of Systems Constitutional: denies: Chills, Fever Cardiovascular: Chest pain. denies: Palpitations Respiratory: Short of breath. denies: Cough -: Yes All other systems reviewed and negative Physical Exam - Vital signs Vitals: Pulse Resp BP Pulse Ox 101 H 18 105/86 H 100 04/26/20 10:23 04/26/20 10:23 04/26/20 10:23 04/26/20 10:23 Interpretation: Tachycardic, Other Notes: current pulse is 91 Course - Re-evaluation Re-evalutation: 04/26/20 15:26 Patient presents with some near syncope and weakness. I did call and discussed the case with the oncologist, Dr. Lowry. Patient apparently has a long history of intermittent nausea vomiting diarrhea and weakness with low potassium and low magnesium. She has had multiple different investigations for the cause of this and so far no cause has been found. Dr. Lowry asked me to replace the patient's potassium as well as treat her pain. Dr. Lowry states the patient will be seen in the office tomorrow and more potassium can be given there. Patient is okay with this plan. At this time patient has received her potassium and some pain medicine and states she feels much better. She does not appear toxic. Vitals are stable. Laboratories are otherwise not significantly remarkable. Patient does have a significantly elevated white blood cell count however she has had this in the past and I did discuss this with Dr. Lowry. Dr. Marquez states that she thinks this is a reaction to the pulsed steroids the patient recently got and since she does not have a sign of infection she does not feel that the patient needs this further pursued. 04/26/20 15:40 - Vital Signs Vital signs: Temp Pulse Resp BP Pulse Ox 97.6 F 101 H 17 109/68 100 04/26/20 10:48 04/26/20 10:50 04/26/20 13:45 04/26/20 13:45 04/26/20 13:45 - Laboratory Result Diagrams: 04/26/20 12:59 04/26/20 11:20 Laboratory results interpreted by me: 04/26/20 04/26/20 11:20 12:59 WBC 31.7 H* RBC 3.07 L Hgb 10.6 L Hct 30.5 L MCV 100 H MCH 34.6 H RDW 15.0 H Plt Count 61 L Seg Neuts % (Manual) 94 H Band Neutrophils % 1 L Lymphocytes % (Manual) 0 L Abs Neuts (Manual) 30.1 H Abs Lymphs (Manual) 0.0 L Abs Monocytes (Manual) 1.6 H Potassium 2.5 L* Calcium 8.2 L - Diagnostic Test Radiology reviewed: Image reviewed, Reports reviewed - EKG Interpretation by Me EKG shows normal: Sinus rhythm Rate: Normal - 96 Rhythm: NSR [place]/QRS: No: Right axis deviation, Left axis deviation Discharge - Discharge Clinical Impression: Hypokalemia, Near syncope, Weakness, Bone marrow replaced by transplant Condition: Stable Disposition: HOME, SELF-CARE Instructions: Dizziness ([facility]), Hypokalemia ([facility]) Additional Instructions: Please go to Dr. Lowry's office tomorrow Forms: Return to Work Referrals: SRIRAM MARQUEZ MD [ACTIVE STAFF] - Follow up tomorrow
[2020-04-26] MEDS ORDERED: ONDANSETRON HCL INJ/PF 4 MG/2 ML SDV ONE (17:05)
[2020-04-26 17:25] LABS: APPEARANCE,URINE CLEAR; BILIRUBIN,URINE NEGATIVE (NEGATIVE); COLOR,URINE YELLOW; GLUCOSE, URINE NEGATIVE (NEGATIVE); KETONES,URINE NEGATIVE (NEGATIVE); LEUKOCYTE ESTERASE,URINE NEGATIVE (NEGATIVE); NITRITE,URINE NEGATIVE (NEGATIVE); PROTEIN,URINE NEGATIVE (NEGATIVE); URINE SPECIFIC GRAVITY 1.048; UROBILINOGEN,URINE NEGATIVE mg/dL (<2.0)
[2020-04-26 18:16] VITALS: BP 95/61
[2020-04-27 13:23] LABS: PATH REVIEW PATHOLOGIST REVIEWED
--- NOTE | 2020-04-27 14:19 | EKG REPORT ---
SEVERITY:- ABNORMAL ECG - SINUS RHYTHM FIRST DEGREE AV BLOCK PROBABLE LEFT ATRIAL ABNORMALITY BORDERLINE T WAVE ABNORMALITIES [facility] : Confirmed by: Jacoby Rosales MD 27-Apr-2020 14:18:43
== END 2020-04-26 18:38 | disposition home or self-care (01) ==
LOC: ER 10:21
DX: E87.6 Hypokalemia (principal); R42 Dizziness and giddiness; R55 Syncope and collapse; R11.2 Nausea with vomiting, unspecified; R53.1 Weakness; K52.9 Noninfective gastroenteritis and colitis, unspecified; M54.9 Dorsalgia, unspecified; R06.02 Shortness of breath; R07.9 Chest pain, unspecified; D72.829 Elevated white blood cell count, unspecified; Z94.81 Bone marrow transplant status; Z79.899 Other long term (current) drug therapy; Z90.49 Acquired absence of other specified parts of digestive tract
CPT/HCPCS: 93005; 96376; 99284; 96375; 96365; 96366; 36415; 83690; 85025; 80053; 81001; 84484; 71275; 93010; J2270; J2405; J3480; J1642

== ENCOUNTER 2020-05-03 09:21 | Emergency (ER) | payer MEDICARE, MEDICAID ==
[2020-05-03] MEDS ORDERED: NORMAL SALINE 1000 ML 1,000 ML IV ONE ×2 (11:21→11:42)
[2020-05-03 11:36] LABS: HEMATOCRIT 32.9 % (36.0-47.0); HEMOGLOBIN 11.3 g/dL (12.0-15.5); MEAN CORPUSCULAR HEMOGLOBIN 34.5 pg (27.0-33.4); MEAN CORPUSCULAR HGB CONC 34.2 g/dL (32.0-36.0); MEAN CORPUSCULAR VOLUME 101 fl (80-97); PLATELET COUNT 135 10^3/uL (150-450); RED BLOOD COUNT 3.27 10^6/uL (3.72-5.28); RED CELL DISTRIBUTION WIDTH 15.3 % (11.5-14.0); WHITE BLOOD COUNT 7.6 10^3/uL (4.0-10.5)
[2020-05-03 11:54] LABS: ABSOLUTE LYMPHOCYTES# (MANUAL) 0.2 10^3/uL (0.5-4.7); ABSOLUTE MONOCYTES # (MANUAL) 0.8 10^3/uL (0.1-1.4); BAND NEUTROPHILS % (MANUAL) 3 % (3-5); BASOPHILS % (MANUAL) 0 % (0-2); EOSINOPHILS % (MANUAL) 0 % (0-6); LYMPHOCYTES % (MANUAL) 2 % (13-45); METAMYELOCYTES % (MANUAL) 1 % (0-1); MONOCYTES % (MANUAL) 10 % (3-13); SEGMENTED NEUTROPHILS % (MAN) 84 % (42-78); TOTAL CELLS COUNTED 100
[2020-05-03 11:55] LABS: ANISOCYTOSIS SLIGHT; POLYCHROMASIA SLIGHT
[2020-05-03 11:56] LABS: PLATELET COMMENT DECREASED
--- NOTE | 2020-05-03 12:00 | ER Document Report ---
ED General - General Chief Complaint: Abdominal Pain Stated Complaint: NAUSEA,VOMITING,HEADACHE Time Seen by Provider: 05/03/20 11:20 Primary Care Provider: JUANCARLOS VO PA [Primary Care Provider] - Follow up as needed Notes: 59-year-old female with history of multiple myeloma presents with near syncope. Patient has had several episodes this morning where she nearly passes out. She gets very dizzy and lightheaded. This is been happening the last 3 weeks. Patient has been consulted with her oncologist Dr. Raines. [place]. The patient has had her potassium and magnesium supplemented. She is needed IV flu ids due to dehydration. She states that she already had at least 5 episodes today where she is felt very lightheaded. She denies any chest pain or shortness of breath with these. She has had some nausea vomiting. TRAVEL OUTSIDE OF THE [place] IN LAST 30 DAYS: No - Related Data Allergies/Adverse Reactions: No Known Drug Allergies Allergy (Verified 05/03/20 11:38) Home Medications: Zofran. Zovirar. Cymbalta. Eliquis. Gabapentin. Levothyroxine. Calcium. Benzenatate. Potassium Past Medical History - Social History Smoking Status: Unknown if Ever Smoked Family History: Reviewed & Not Pertinent, CAD, DM, Hypertension - Past Medical History Cardiac Medical History: Denies: Hx Coronary Artery Disease, Hx Heart Attack, Hx Hypertension Pulmonary Medical History: Denies: Hx Asthma, Hx Bronchitis, Hx COPD, Hx Pneumonia, Hx Tuberculosis Neurological Medical History: Reports: Hx Migraine. Denies: Hx Cerebrovascular Accident, Hx Seizures Renal/ Medical History: Denies: Hx Peritoneal Dialysis Musculoskeletal Medical History: Reports Hx Arthritis - Fingers Psychiatric Medical History: Reports: Hx Depression Past Surgical History: Reports: Hx Cholecystectomy, Hx Orthopedic Surgery, Hx Tubal Ligation - Immunizations Hx Diphtheria, Pertussis, Tetanus Vaccination: Yes Review of Systems - Review of Systems Constitutional: denies: Chills, Fever Cardiovascular: Dizziness. denies: Chest pain, Palpitations, Dyspnea, Edema Respiratory: denies: Hurts to breathe, Hemoptysis, Short of breath Gastrointestinal: Diarrhea, Nausea, Vomiting. denies: Abdominal pain Genitourinary: denies: Burning, Hematuria Musculoskeletal: denies: Back pain -: Yes All other systems reviewed and negative Physical Exam - Vital signs Vitals: Temp Pulse Resp BP Pulse Ox 98.7 F 98 16 114/87 H 100 05/03/20 09:43 05/03/20 09:43 05/03/20 09:43 05/03/20 09:43 05/03/20 09:43 - Notes Notes: GENERAL_APPEARANCE: well_nourished, alert, cooperative VITALS: reviewed, see vital signs table. HEAD: no_swelling\tenderness on the head. EYES: PERRL, EOMI, conjunctiva_clear. NOSE: no_nasal_discharge. MOUTH: Tongue and mucous membranes THROAT: no_tonsilar_inflammation, no_airway_obstruction. no_lymphadenopathy NECK: supple, no_neck_tenderness, (-)thyromegaly. BACK: no_back_tenderness. CHEST_WALL: Port left chest LUNGS: no_wheezing, no_rales, no_rhonchi, (-)accessory muscle use, good air exchange bilateral. HEART: normal_rate, normal_rhythm, normal_S1, normal_S2, (-)S3, (-)S4, no_murmur, no_rub. ABDOMEN: normal_BS, soft, no_abd_tenderness, (-)guarding, (-)rebound, no_organomegaly, no_abd_masses. EXTREMITIES: strength 5/5 in all_extremities, good pulses in all_extremities, no_swelling\tenderness in the extremities, no_edema. SKIN: warm, dry, good_color, no_rash. MENTAL_STATUS: speech_clear, oriented_X_3, normal_affect, responds_a ppropriately to questions. NEURO: Neg Motor or Sensory Deficits on exam, CN 2-12 intact, DTR 2+ symmetric x 4, No cerbellar signs Course - Re-evaluation Re-evalutation: 05/03/20 12:00 59-year-old female history of multiple myeloma with recent nausea vomiting and loose stools who is on active chemotherapy presents with near syncope several times. She is dizzy lightheaded. We will give the patient a liter of IV fluids check orthostatics. 05/03/20 15:10 Patient has been given IV fluids. She received a liter of LR via EMS and a liter saline per me. She is feeling better but is frustrated and wants answers. Lab work here showed a mildly low potassium she is already on potassium supplementation magnesium is normal. The patient has a history of bone marrow transplant in the past. She sees [facility] and Dr. Lowry here. We are awaiting a head scan here but she has a completely normal neuro exam. Patient has appointment with oncology at 9 AM tomorrow morning. 05/03/20 15:56 Head scan is normal. The patient will be discharged. Will need follow-up with oncology. - Vital Signs Vital signs: Temp Pulse Resp BP Pulse Ox 98.0 F 107 H 18 92/58 L 99 05/03/20 11:37 05/03/20 11:37 05/03/20 11:37 05/03/20 11:37 05/03/20 11:37 - Laboratory Result Diagrams: 05/03/20 11:27 05/03/20 11:27 Laboratory results interpreted by me: 05/03/20 05/03/20 05/03/20 11:27 11:27 11:35 RBC 3.27 L Hgb 11.3 L Hct 32.9 L MCV 101 H MCH 34.5 H RDW 15.3 H Plt Count 135 L Seg Neuts % (Manual) 84 H Lymphocytes % (Manual) 2 L Abs Lymphs (Manual) 0.2 L Potassium 3.3 L Chloride 110 H BUN 6 L Urine Protein 30 H - Diagnostic Test Radiology reviewed: Reports reviewed Radiology results interpreted by me: 05/03/20 15:56 Chest X-Ray 05/03/20 00:00 IMPRESSION: NO ACUTE FINDINGS. Head CT 05/03/20 15:09 IMPRESSION: NO ACUTE INTRACRANIAL FINDINGS. EVIDENCE OF ACUTE STROKE: NO. - EKG Interpretation by Ne EKG shows normal: Sinus rhythm Rate: Normal Rhythm: NSR Discharge - Discharge Clinical Impression: Dehydration, Near syncope Condition: Good Disposition: HOME, SELF-CARE Instructions: Dehydration ([facility]), Hypokalemia ([facility]), Near Syncopal Episode ([facility]) Additional Instructions: Please keep your appointment tomorrow with Dr. Lowry in the morning at 9 AM Referrals: JUANCARLOS VO PA [Primary Care Provider] - Follow up as needed
[2020-05-03 12:16] LABS: APPEARANCE,URINE SLIGHTLY-CLOUDY; BILIRUBIN,URINE NEGATIVE (NEGATIVE); COLOR,URINE YELLOW; GLUCOSE, URINE NEGATIVE (NEGATIVE); KETONES,URINE NEGATIVE (NEGATIVE); LEUKOCYTE ESTERASE,URINE NEGATIVE (NEGATIVE); NITRITE,URINE NEGATIVE (NEGATIVE); PROTEIN,URINE 30 mg/dL (NEGATIVE); URINE SPECIFIC GRAVITY 1.013; UROBILINOGEN,URINE NEGATIVE mg/dL (<2.0)
--- NOTE | 2020-05-03 12:16 | RADIOLOGY REPORT (SQ) ---
EXAM DESCRIPTION: CHEST SINGLE VIEW IMAGES COMPLETED DATE/TIME: 05/03/2020 11:52 am REASON FOR STUDY: cough COMPARISON: 03/02/2020 TECHNIQUE: Single frontal radiographic view of the chest acquired. NUMBER OF VIEWS: One view. LIMITATIONS: None. FINDINGS: LUNGS AND PLEURA: No pneumothorax. No consolidation or pleural effusion. MEDIASTINUM AND HILAR STRUCTURES: Stable. HEART AND VASCULAR STRUCTURES: Stable. BONES: No acute findings. HARDWARE: Left chest port. OTHER: No other significant finding. IMPRESSION: NO ACUTE FINDINGS. TECHNICAL DOCUMENTATION: JOB ID: [id number] 2010 [employer]- All Rights Reserved Reading location - IP/workstation name: [email or web address]
[2020-05-03 12:50] LABS: ALBUMIN 4.1 g/dL (3.5-5.0); ALKALINE PHOSPHATASE 84 U/L (38-126); ANION GAP 7 (5-19); ASPARTATE AMINO TRANSFERASE 29 U/L (14-36); BILIRUBIN,TOTAL 0.3 mg/dL (0.2-1.3); BLOOD UREA NITROGEN 6 mg/dL (7-20); CALCIUM 9.5 mg/dL (8.4-10.2); CARBON DIOXIDE 22 mmol/L (22-30); CHLORIDE 110 mmol/L (98-107); GLUCOSE 97 mg/dL (75-110); POTASSIUM 3.3 mmol/L (3.6-5.0); TOTAL PROTEIN 7.1 g/dL (6.3-8.2)
--- NOTE | 2020-05-03 15:54 | RADIOLOGY REPORT (SQ) ---
EXAM DESCRIPTION: CT HEAD WITHOUT IMAGES COMPLETED DATE/TIME: 05/03/2020 3:30 pm REASON FOR STUDY: syncope vomiting headache COMPARISON: 04/24/2019 TECHNIQUE: Axial images acquired through the brain without intravenous contrast. Images reviewed wit h bone, brain and subdural windows. Images stored on PACS. All CT scanners at this facility use dose modulation, iterative reconstruction, and/or weight based d osing when appropriate to reduce radiation dose to as low as reasonably achievable (ALARA). [facility]: Dose Right [facility]: CareDose [facility]: Dose Right [facility]: Teradose 4D [facility]: Smart Chronogolf RADIATION DOSE: CT Rad equipment meets quality standard of care and radiation dose reduction techniq ues were employed. CTDIvol: 53.2 mGy. DLP: 937 mGy-cm.. LIMITATIONS: None. FINDINGS: VENTRICLES: Normal size and contour. CEREBRUM: No masses. No hemorrhage. No midline shift. Stable appearance of the white matter. No evid ence for acute infarction. CEREBELLUM: No masses. No hemorrhage. No alteration of density. No evidence for acute infarction. EXTRA-AXIAL SPACES: No fluid collections. ORBITS AND GLOBE: No intra- or extraconal masses. Normal contour of globe without masses. CALVARIUM: No fracture. PARANASAL SINUSES: No fluid or mucosal thickening. SOFT TISSUES: No mass or hematoma. OTHER: No other significant finding. IMPRESSION: NO ACUTE INTRACRANIAL FINDINGS. EVIDENCE OF ACUTE STROKE: NO. TECHNICAL DOCUMENTATION: JOB ID: [id number] [place]-[id number] Quality ID # [id number]: Final reports with documentation of one or more dose reduction techniques (e.g., Au tomated exposure control, adjustment of the mA and/or kV according to patient size, use of iterative reconstruction technique) 2010 [employer]- All Rights Reserved Reading location - IP/workstation name: [employer]
[2020-05-03 16:10] VITALS: BP 122/67
--- NOTE | 2020-05-03 21:02 | EKG REPORT ---
SEVERITY:- BORDERLINE ECG - SINUS RHYTHM PROBABLE LEFT ATRIAL ABNORMALITY : Confirmed by: Jacoby Rosales MD 03-May-2020 21:02:13
== END 2020-05-03 16:14 | disposition home or self-care (01) ==
LOC: ER 09:21
DX: E86.0 Dehydration (principal); R55 Syncope and collapse; R42 Dizziness and giddiness; R11.2 Nausea with vomiting, unspecified; R19.7 Diarrhea, unspecified; C90.00 Multiple myeloma not having achieved remission; F32.9 Major depressive disorder, single episode, unspecified; Z79.899 Other long term (current) drug therapy; Z79.01 Long term (current) use of anticoagulants; Z94.81 Bone marrow transplant status
CPT/HCPCS: 93005; 99284; 96360; 36415; 83735; 85025; 80053; 81001; 84484; 71045; 70450; 93010; J7030

== ENCOUNTER 2020-06-13 10:47 | Emergency (ER) | payer MEDICARE, MEDICAID ==
[2020-06-13 11:29] LABS: ABSOLUTE LYMPHOCYTES (AUTO) 0.6 10^3/uL (0.5-4.7); ABSOLUTE MONOCYTES (AUTO) 0.2 10^3/uL (0.1-1.4); ABSOLUTE NEUT (AUTO) 2.1 10^3/uL (1.7-8.2); BASOPHILS % (AUTO) 0.3 % (0-2); EOSINOPHILS % (AUTO) 0.1 % (0-6); HEMATOCRIT 30.6 % (36.0-47.0); HEMOGLOBIN 10.7 g/dL (12.0-15.5); LYMPHOCYTES % (AUTO) 21.6 % (13-45); MEAN CORPUSCULAR HEMOGLOBIN 34.6 pg (27.0-33.4); MEAN CORPUSCULAR VOLUME 99 fl (80-97); PLATELET COUNT 217 10^3/uL (150-450); RED BLOOD COUNT 3.09 10^6/uL (3.72-5.28); RED CELL DISTRIBUTION WIDTH 13.7 % (11.5-14.0); TOTAL CELLS COUNTED % (AUTO) 100 %
[2020-06-13 11:37] LABS: PROTHROMBIN TIME 16.4 SEC (11.4-15.4)
--- NOTE | 2020-06-13 11:45 | ER Document Report ---
ED General - General Chief Complaint: Dizziness Stated Complaint: LIGHTHEADED Time Seen by Provider: 06/13/20 11:02 Primary Care Provider: JUANCARLOS VO PA [Primary Care Provider] - Follow up as needed Notes: HPI: Patient is a 59-year-old female with past medical history as recorded including previous multiple myeloma with bone marrow transplant not on any currently active chemotherapy radiation followed at [facility] who presents today with some intermittent lightheadedness worse with standing over the last 2 to 3 days. Patient had a 10-day stay at the end of April at [facility] hospital secondary to a similar irregularity. She was then transferred to [facility] and was followed by Dr. Wiggins the manager star there. She was discharged May 28 and diagnosed with SVT, orthostatic hypotension, and syncope. She was started on flecainide, metoprolol, and Midrin. ROS: See HPI All other review of systems reviewed and otherwise negative Reviewed vital signs and nursing note as charted by RN. PHYSICAL EXAM: CONSTITUTIONAL: Alert and oriented and responds appropriately to questions. Well-appearing; well-nourished HEAD: Normocephalic; atraumatic EYES: PERRL; full extraocular range of motion ENT: Normal nose; no rhinorrhea; moist mucous membranes; pharynx without lesions noted NECK: Supple without meningismus; non-tender; no cervical lymphadenopathy, no masses CARD: Regular rate and rhythm; no murmurs; symmetric distal pulses RESP: Normal chest excursion without splinting or tachypnea; breath sounds clear and equal bilaterally ABD/GI: Normal bowel sounds; non-distended; soft, non-tender BACK: The back appears normal and is non-tender to palpation EXT: Normal ROM in all joints; non-tender to palpation; no edema SKIN: No acute lesions noted NEURO: CN 2-12 intact; 5/5 bilateral upper and lower extremity strength with sensation intact to light touch PSYCH: The patient's mood and manner are appropriate. Grooming and personal hygiene are appropriate. TRAVEL OUTSIDE OF THE [place] IN LAST 30 DAYS: No - Related Data Allergies/Adverse Reactions: No Known Drug Allergies Allergy (Verified 05/03/20 11:38) Past Medical History - Social History Smoking Status: Unknown if Ever Smoked Family History: Reviewed & Not Pertinent, CAD, DM, Hypertension - Past Medical History Cardiac Medical History: Denies: Hx Coronary Artery Disease, Hx Heart Attack, Hx Hypertension Pulmonary Medical History: Denies: Hx Asthma, Hx Bronchitis, Hx COPD, Hx Pneumonia, Hx Tuberculosis Neurological Medical History: Reports: Hx Migraine. Denies: Hx Cerebrovascular Accident, Hx Seizures Renal/ Medical History: Denies: Hx Peritoneal Dialysis Musculoskeletal Medical History: Reports Hx Arthritis - Fingers Psychiatric Medical History: Reports: Hx Depression Past Surgical History: Reports: Hx Cholecystectomy, Hx Orthopedic Surgery, Hx Tubal Ligation - Immunizations Hx Diphtheria, Pertussis, Tetanus Vaccination: Yes Physical Exam - Vital signs Vitals: Temp 98.4 F 06/13/20 10:47 Course - Re-evaluation Re-evalutation: Given the above history and physical, we will order a cardiac panel, place the patient on the monitor, and reassess. Patient denies any chest pain, shortness of breath, or leg swelling. Recent admission/discharge as dictated above. 06/13/20 11:46 We did perform 2 separate EKGs on the patient. She initially has 1 EKG performed at 10:55 AM showing normal sinus rhythm with PVCs and PACs present. No obvious ST elevation or depression. A repeat EKG at 1057 shows what appears to be atrial flutter with a 2-[address] block[address] obvious ST elevation or depression. Heart rate is currently 98. We will consult cardiology. 06/13/20 12:24 Labs as recorded. Potassium as recorded. I repleted the potassium. I will call the on-call manager star to discuss the case. 06/13/20 13:36 I called and spoke directly to Dr. Wiggins from [facility]. He states that he will consult on the patient would like me to admit the patient to the hospitalist service. We have repleted the potassium. He does believe that the patient may require an ablation. - Vital Signs Vital signs: Temp Pulse Resp BP Pulse Ox 98.4 F 22 H 106/68 100 06/13/20 11:03 06/13/20 12:01 06/13/20 12:01 06/13/20 12:01 - Laboratory Result Diagrams: 06/13/20 11:11 06/13/20 11:11 Laboratory results interpreted by me: 06/13/20 06/13/20 06/13/20 11:11 11:11 11:11 WBC 3.0 L RBC 3.09 L Hgb 10.7 L Hct 30.6 L MCV 99 H MCH 34.6 H PT 16.4 H Potassium 2.8 L* Glucose 112 H Discharge - Discharge Clinical Impression: Atrial flutter by electrocardiogram, Lightheadedness Condition: Fair Disposition: [facility] Referrals: JUANCARLOS VO PA [Primary Care Provider] - Follow up as needed
[2020-06-13] MEDS ORDERED: METOPROLOL TARTRATE PF/INJ 5 MG/5 ML SDV IV ONE (11:48)
[2020-06-13 11:51] LABS: ANION GAP 11 (5-19); BLOOD UREA NITROGEN 8 mg/dL (7-20); CALCIUM 9.5 mg/dL (8.4-10.2); CARBON DIOXIDE 22 mmol/L (22-30); CHLORIDE 106 mmol/L (98-107); GLUCOSE 112 mg/dL (75-110)
[2020-06-13 11:56] LABS: POTASSIUM 2.8 mmol/L (3.6-5.0)
[2020-06-13] MEDS ORDERED: POTASSI CL 20 MEQ/50 ML RIDER 20 MEQ/50 ML RTUPB IV ONE (12:24)
[2020-06-13 15:36] VITALS: BP 133/86
--- NOTE | 2020-06-13 20:52 | EKG REPORT ---
SEVERITY:- ABNORMAL ECG - ATRIAL FIBRILLATION, V-RATE 128-165 BORDERLINE T WAVE ABNORMALITIES BORDERLINE PROLONGED QT INTERVAL : Confirmed by: Claudette Levine MD 13-Jun-2020 20:51:19
--- NOTE | 2020-06-13 20:52 | EKG REPORT ---
SEVERITY:- ABNORMAL ECG - SINUS RHYTHM SINUS PAUSE/ARREST WITH ATRIAL ESCAPE FIRST DEGREE AV BLOCK : Confirmed by: Claudette Levine MD 13-Jun-2020 20:51:32
== END 2020-06-13 15:37 | disposition short-term general hospital (02) ==
LOC: ER 10:47
DX: R42 Dizziness and giddiness (principal); I48.92 Unspecified atrial flutter; Z90.49 Acquired absence of other specified parts of digestive tract; Z98.51 Tubal ligation status
CPT/HCPCS: 93005; 36591; 99285; 96375; 96365; 96366; 36415; 85025; 85610; 80048; 84484; 93010; J3490; J3480

== ENCOUNTER 2020-08-26 15:37 | Inpatient (IN) | payer MEDICARE, MEDICAID ==
[2020-08-26] MEDS ORDERED: DEXTROSE 5%-LACTATED RINGERS 1,000 ML IV ONE (16:14)
[2020-08-26 16:20] LABS: HEMATOCRIT 27.3 % (36.0-47.0); HEMOGLOBIN 9.3 g/dL (12.0-15.5); MEAN CORPUSCULAR HEMOGLOBIN 31.7 pg (27.0-33.4); MEAN CORPUSCULAR HGB CONC 33.9 g/dL (32.0-36.0); MEAN CORPUSCULAR VOLUME 93 fl (80-97); RED BLOOD COUNT 2.92 10^6/uL (3.72-5.28); WHITE BLOOD COUNT 5.6 10^3/uL (4.0-10.5)
[2020-08-26 16:21] LABS: PROTHROMBIN TIME 35.6 SEC (11.4-15.4)
[2020-08-26 16:33] LABS: ALBUMIN 3.4 g/dL (3.5-5.0); ALKALINE PHOSPHATASE 54 U/L (38-126); ANION GAP 14 (5-19); ASPARTATE AMINO TRANSFERASE 173 U/L (14-36); BILIRUBIN,DIRECT 0.3 mg/dL (0.0-0.4); BILIRUBIN,TOTAL 0.8 mg/dL (0.2-1.3); BLOOD UREA NITROGEN 67 mg/dL (7-20); CALCIUM 9.5 mg/dL (8.4-10.2); CARBON DIOXIDE 18 mmol/L (22-30); CHLORIDE 106 mmol/L (98-107); GLUCOSE 138 mg/dL (75-110); POTASSIUM 3.8 mmol/L (3.6-5.0); TOTAL PROTEIN 7.2 g/dL (6.3-8.2)
--- NOTE | 2020-08-26 16:34 | RADIOLOGY REPORT (SQ) ---
EXAM DESCRIPTION: CHEST SINGLE VIEW IMAGES COMPLETED DATE/TIME: 08/26/2020 3:59 pm REASON FOR STUDY: sepsis COMPARISON: 05/03/2020 EXAM PARAMETERS: NUMBER OF VIEWS: One view. TECHNIQUE: Single frontal radiographic view of the chest acquired. RADIATION DOSE: NA LIMITATIONS: None. FINDINGS: LUNGS AND PLEURA: Segmental airspace disease in the right upper lobe. The left lung is cl ear. MEDIASTINUM AND HILAR STRUCTURES: No masses. Contour normal. HEART AND VASCULAR STRUCTURES: Heart normal in size. Normal vasculature. BONES: No acute findings. HARDWARE: None in the chest. OTHER: Stable position of left-sided port. IMPRESSION: Right upper lobe airspace disease. In the appropriate setting this is consistent with [employer]. TECHNICAL DOCUMENTATION: JOB ID: [id number] 2010 [employer]- All Rights Reserved Reading location - IP/workstation name: [email or web address]
--- NOTE | 2020-08-26 16:56 | ER Document Report ---
Entered by LIO CABALLERO SCRIBE 08/26/20 1604 Acting as scribe for:KATHIE BOWMAN MD ED General - General Chief Complaint: Low Blood Pressure Stated Complaint: POSSIBLE SEPSIS Time Seen by Provider: 08/26/20 16:00 Primary Care Provider: SRIRAM GRACE MD [Primary Care Provider] - Follow up as needed Mode of Arrival: Medic Information source: Patient, Emergency Med Personnel Notes: This 59 year old female patient with a history of multiple myeloma s/p bone marrow transplant in 2013 and iron deficiency anemia presents to the ED today via EMS for evaluation of low blood pressure. Per EMS, patient had a blood pressure of 98/66. Patient states that she does get lightheaded and weak when she stands up. Denies any pain. Patient received approximately 350 ml LR via EMS. She had had a blood transfusion on 08/19. TRAVEL OUTSIDE OF THE [place] IN LAST 30 DAYS: No - Related Data Allergies/Adverse Reactions: No Known Drug Allergies Allergy (Verified 05/03/20 11:38) Past Medical History - General Information source: [facility] Records - Social History Smoking Status: Former Smoker Cigarette use (# per day): No Chew tobacco use (# tins/day): No Smoking Education Provided: No Family History: Reviewed & Not Pertinent, CAD, DM, Hypertension Neurological Medical History: Reports: Hx Migraine Malignancy Medical History: Reports: Other - Hx Multiple Myeloma s/p bone marrow transplant in 2013 Musculoskeletal Medical History: Reports Hx Arthritis - Fingers Psychiatric Medical History: Reports: Hx Depression Past Surgical History: Reports: Hx Cholecystectomy, Hx Orthopedic Surgery, Hx Tubal Ligation, Other - Bone marrow transplant in 2013 - Immunizations Hx Diphtheria, Pertussis, Tetanus Vaccination: Yes Review of Systems - Review of Systems Constitutional: See HPI EENT: No symptoms reported Cardiovascular: See HPI Respiratory: No symptoms reported Gastrointestinal: No symptoms reported Genitourinary: No symptoms reported Female Genitourinary: No symptoms reported Musculoskeletal: See HPI Skin: No symptoms reported Hematologic/Lymphatic: No symptoms reported Neurological/Psychological: No symptoms reported -: Yes All other systems reviewed and negative Physical Exam - Vital signs Vitals: Pulse Ox 98 08/26/20 15:44 - General General appearance: Other - Appears cachectic - HEENT Head: Normocephalic, Atraumatic Eyes: Other - Exophthalmic Conjunctiva: Normal Pupils: PERRL - Respiratory Respiratory status: Tachypnea Chest status: Nontender Breath sounds: Normal Chest palpation: Normal - Cardiovascular Rhythm: Regular, Tachycardia - Rate 140 bpm Heart sounds: Normal auscultation Murmur: No Friction rub: No Gallop: None auscultated - Abdominal Inspection: Normal Distension: No distension Bowel sounds: Normal Tenderness: Nontender - Abdomen soft Organomegaly: No organomegaly - Back Back: Normal, Nontender - Extremities General upper extremity: Normal inspection General lower extremity: Normal inspection. No: Edema - Neurological Neuro grossly intact: Yes - Psychological Associated symptoms: Normal affect, Normal mood - Skin Skin Temperature: Warm Skin Moisture: Dry Skin Color: Normal Course - Re-evaluation Re-evalutation: 08/26/20 18:26 At this point the patient has had 2 L of IV fluids. Her blood pressure is up to 106/76, her pulse is down to 127. Her O2 saturation is 100% on room air. At this time she is more alert, states she feels better, and is better able to answer questions. She does report that she has had a cough for the past 2 days, it is nonproductive and there is no shortness of breath. It does not hurt to breathe or cough. The patient was evaluated during the global COVID-19 pandemic and that diagnosis was suspected/considered upon their initial presentation. Their evaluation, treatment and testing was consistent with current guidelines for patients who present with complaints or symptoms that may be related to COVID-19. - Vital Signs Vital signs: Temp Pulse Resp BP Pulse Ox 97.8 F 20 106/76 100 08/26/20 16:42 08/26/20 18:02 08/26/20 18:02 08/26/20 18:02 - Laboratory Result Diagrams: 08/26/20 15:50 08/26/20 15:50 Laboratory results interpreted by me: 08/26/20 08/26/20 08/26/20 15:50 15:50 15:50 RBC 2.92 L Hgb 9.3 L Hct 27.3 L RDW 16.0 H Plt Count 27 L* Seg Neuts % (Manual) 83 H Lymphocytes % (Manual) 2 L Abs Lymphs (Manual) 0.1 L PT 35.6 H VBG pCO2 VBG HCO3 Carbon Dioxide 18 L BUN 67 H Creatinine 2.37 H Est GFR ( Amer) 25 L Est GFR (MDRD) Non-Af 21 L Glucose 138 H AST 173 H ALT 75 H Albumin 3.4 L Urine Protein Urine Blood 08/26/20 08/26/20 16:27 17:05 RBC Hgb Hct RDW Plt Count Seg Neuts % (Manual) Lymphocytes % (Manual) Abs Lymphs (Manual) PT VBG pCO2 31.6 L VBG HCO3 17.4 L Carbon Dioxide BUN Creatinine Est GFR ( Amer) Est GFR (MDRD) Non-Af Glucose AST ALT Albumin Urine Protein 100 H Urine Blood MODERATE H - Diagnostic Test Radiology reviewed: Image reviewed, Reports reviewed - Right upper lobe infiltrate - EKG Interpretation by Me EKG shows normal: Sinus rhythm, [place], Intervals, QRS Complexes. abnormal: ST-T Waves - Diffuse T wave abnormalities Rate: Tachycardia - 135 Rhythm: PVC's When compared to previous EKG there are: Changes noted - Consults Dr. Clinton Time consulted: 18:25 Consulted provider: will come to ER Discharge - Discharge Clinical Impression: Dehydration, Right upper lobe pulmonary infiltrate, Acute kidney injury, Thr ombocytopenia, Bone marrow replaced by transplant Anemia Qualifiers: Anemia type: unspecified type Qualified Code(s): D64.9 - Anemia, unspecified Hypotension Qualifiers: Hypotension type: unspecified hypotension type Qualified Code(s): I95.9 - Hy potension, unspecified Malnutrition Qualifiers: Malnutrition type: protein-calorie malnutrition Protein-calorie malnutrition severity: moderate Qualified Code(s): E44.0 - Moderate protein-calorie ma lnutrition Condition: Fair Disposition: ADMITTED INPATIENT Admitting Provider: Solange (Hospitalist) Unit Admitted: Telemetry Referrals: SRIRAM GRACE MD [Primary Care Provider] - Follow up as needed I personally performed the services described in the documentation, reviewed and edited the documentation which was dictated to the scribe in my presence, and it accurately records my words and actions.
[2020-08-26 17:08] LABS: APPEARANCE,URINE SLIGHTLY-CLOUDY; BILIRUBIN,URINE NEGATIVE (NEGATIVE); COLOR,URINE YELLOW; GLUCOSE, URINE NEGATIVE (NEGATIVE); KETONES,URINE NEGATIVE (NEGATIVE); PROTEIN,URINE 100 mg/dL (NEGATIVE); URINE SPECIFIC GRAVITY 1.016; UROBILINOGEN,URINE NEGATIVE mg/dL (<2.0)
[2020-08-26 17:11] LABS: PLATELET COUNT 27 10^3/uL (150-450)
[2020-08-26 17:15] LABS: ABSOLUTE LYMPHOCYTES# (MANUAL) 0.1 10^3/uL (0.5-4.7); ABSOLUTE MONOCYTES # (MANUAL) 0.6 10^3/uL (0.1-1.4); BAND NEUTROPHILS % (MANUAL) 5 % (3-5); BASOPHILS % (MANUAL) 0 % (0-2); EOSINOPHILS % (MANUAL) 0 % (0-6); LYMPHOCYTES % (MANUAL) 2 % (13-45); MONOCYTES % (MANUAL) 10 % (3-13); SEGMENTED NEUTROPHILS % (MAN) 83 % (42-78); TOTAL CELLS COUNTED 100
[2020-08-26 17:16] LABS: ANISOCYTOSIS 1+; OVALOCYTES SLIGHT; PLATELET COMMENT DECREASED; TEAR DROP CELLS SLIGHT; TOXIC GRANULATION SLIGHT
[2020-08-26 17:27] LABS: VENOUS BLOOD BASE EXCESS -6.6 mmol/L; VENOUS BLOOD HCO3 17.4 mmol/L (20-32); VENOUS BLOOD PCO2 31.6 mmHg (35-63); VENOUS BLOOD PH 7.36 (7.30-7.42)
[2020-08-26] MEDS ORDERED: RINGERS SOLUTION,LACTATED 1,000 ML IV ONE (18:24)
[2020-08-26] MEDS ORDERED: LEVOFLOXACIN 750 MG/D5W RTU 750 MG/150 ML RTUPB IV ONE (18:24)
[2020-08-26] MEDS ORDERED: OXYCODONE-ACETAMINOPHEN 5-325 MG TABLET PO PRN (19:12)
[2020-08-26] MEDS ORDERED: ONDANSETRON HCL INJ/PF 4 MG/2 ML SDV IV PRN (19:12)
[2020-08-26] MEDS ORDERED: ACETAMINOPHEN 325 MG TABLET PO PRN (19:22)
[2020-08-26] MEDS ORDERED: IPRATROPIUM/ALBUTEROL 0.5-2.5 MG/3 ML AMPUL NEB PRN (19:26)
--- NOTE | 2020-08-26 19:57 | PDOC H&P ---
History of Present Illness Admission Date/PCP: 08/26/20 19:20 SRIRAM GRACE MD Patient complains of: failure to thrive History of Present Illness: RONY PERDOOM is a 59 year old female, diagnosed case of multiple myeloma receiving chemo, hypothyroidism who was brought in via EMS due to failure to thrive. Patient got her last dose of chemo last Sunday in addition to a blood transfusion. And according to her son since then she has been very weak, lethargic with poor appetite, cough. No fever no shortness of breath no diarrhea. She was also apparently exposed to a sister that was recently diagnosed with Covid. EMS noted that her blood pressure was low at systolic of 70s. In the ED blood pressure 87/69, heart rate of 142, temp 97.8, O2 sat 100% on room air. CBC showed WBC count of 5.6, hemoglobin 9.3, platelet count of 27. CMP showed GIANFRANCO with a creatinine of 2.3. Chest x-ray showed possible right upper lobe pneumonia. She was given 2 IV boluses and was started on Levaquin in the ED. According to the ED physician Dr. Marvin was consulted in the ED and apparently he is planning on speaking to the family about transitioning the patient to hospice since she is not responding to multiple myeloma treatments. I also talked to her son about hospice care and he agrees. However he stated that the patient is not agreeable to hospice. Past Medical History Cardiac Medical History: Denies: Coronary Artery Disease, Myocardial Infarction, Hypertension Pulmonary Medical History: Denies: Asthma, Bronchitis, Chronic Obstructive Pulmonary Disease (COPD), Pneumonia, Tuberculosis Neurological Medical History: Reports: Migraine Denies: Seizures Endocrine Medical History: Reports: Hypothyroidism Renal/ Medical History: Reports: Chronic Kidney Disease Malignancy Medical History: Reports: Leukemia, Other - Hx Multiple Myeloma s/p bone marrow transplant in 2013 Musculoskeltal Medical History: Reports: Arthritis - Fingers Psychiatric Medical History: Reports: Depression Hematology: Reports: Anemia Past Surgical History Past Surgical History: Reports: Cholecystectomy, Orthopedic Surgery, Tubal Ligation, Other - Bone marrow transplant in 2013 Social History Information Source: Patient Lives with: Family Smoking Status: Former Smoker Electronic Cigarette use?: No Frequency of Alcohol Use: None Hx Recreational Drug Use: No Drugs: None Hx Prescription Drug Abuse: No - Advance Directive Resuscitation Status: Full Code Surrogate healthcare decision maker:: Her Son Family History Family History: Reviewed & Not Pertinent, CAD, DM, Hypertension Parental Family History Reviewed: Yes Children Family History Reviewed: Yes Sibling(s) Family History Reviewed.: Yes Medication/Allergy Home Medications: Acyclovir [Acyclovir 400 mg Tablet] 400 mg PO DAILY 10/16/17 Apixaban [Eliquis 5 mg Tablet] 5 mg PO Q12 10/16/17 Diphenoxylate HCl/Atropine [Diphenoxylate-Atrop 2.5-0.025] 1 tab PO ASDIR PRN 10/16/17 Duloxetine HCl [Cymbalta] 60 mg PO DAILY 10/16/17 Gabapentin [Neurontin 300 mg Capsule] 300 mg PO Q12 10/16/17 Pantoprazole Sodium [Protonix] 40 mg PO Q12 10/16/17 Potassium Chloride [Klor-Con M20] 20 meq PO Q12 10/16/17 Ciprofloxacin HCl [Cipro 500 mg Tablet] 500 mg PO BID #20 tablet 10/19/17 Metronidazole [Flagyl 500 mg Tablet] 500 mg PO TID #30 tablet 10/19/17 Oxycodone HCl/Acetaminophen [Percocet 5-325 mg Tablet] 1 tab PO ASDIR PRN #15 tab 05/07/18 Hydrocodone/Acetaminophen [[place] 5-325 mg Tablet] 1 tab PO Q4 PRN #15 tablet 10/27/18 Methocarbamol [Robaxin 750 mg Tablet] 750 mg PO Q4 #20 tablet 10/27/18 Ondansetron [Zofran Odt 4 mg Tablet] 1 - 2 tab PO Q4H #10 tab.rapdis 10/27/18 Allergies/Adverse Reactions: No Known Drug Allergies Allergy (Verified 05/03/20 11:38) Review of Systems Constitutional: PRESENT: fatigue, weakness, weight loss Eyes: ABSENT: visual disturbances Ears: ABSENT: hearing changes Nose, Mouth, and Throat: ABSENT: headache(s), mouth pain, sore throat Cardiovascular: ABSENT: chest pain, dyspnea on exertion, edema, orthropnea Respiratory: PRESENT: cough. ABSENT: dyspnea Gastrointestinal: ABSENT: diarrhea, heartburn Genitourinary: ABSENT: dysuria Neurological: ABSENT: abnormal movements Psychiatric: ABSENT: hallucinations Physical Exam Vital Signs: Temp Pulse Resp BP Pulse Ox 97.8 F 20 106/76 100 08/26/20 16:42 08/26/20 18:02 08/26/20 18:02 08/26/20 18:02 Intake & Output 08/25/20 08/26/20 08/27/20 06:59 06:59 06:59 Intake Total 1000 Balance 1000 Weight 68.9 kg General appearance: PRESENT: no acute distress, cooperative, other - Weak and frail looking Head exam: PRESENT: atraumatic, normocephalic Eye exam: PRESENT: EOMI, other - Orbital proptosis Mouth exam: PRESENT: dry mucosa Neck exam: PRESENT: full ROM Respiratory exam: PRESENT: clear to auscultation tai, symmetrical, unlabored Cardiovascular exam: PRESENT: irregular rhythm, +S1, +S2, tachycardia Pulses: PRESENT: +2 pedal pulses bilateral GI/Abdominal exam: PRESENT: normal bowel sounds, soft. ABSENT: rebound, tenderness Extremities exam: PRESENT: full ROM Musculoskeletal exam: PRESENT: full ROM Neurological exam: PRESENT: alert, awake, other - A bit confused Psychiatric exam: PRESENT: normal mood Results Laboratory Results: 08/26/20 15:50 08/26/20 15:50 08/26/20 08/26/20 08/26/20 15:50 15:50 15:50 WBC 5.6 RBC 2.92 L Hgb 9.3 L Hct 27.3 L MCV 93 MCH 31.7 MCHC 33.9 RDW 16.0 H Plt Count 27 L* Seg Neutrophils % Not Reportable VBG pH VBG pCO2 VBG HCO3 VBG Base Excess Sodium 137.9 Potassium 3.8 Chloride 106 Carbon Dioxide 18 L Anion Gap 14 BUN 67 H Creatinine 2.37 H Est GFR ( Amer) 25 L Glucose 138 H Lactic Acid 1.6 Calcium 9.5 Total Bilirubin 0.8 AST 173 H Alkaline Phosphatase 54 Total Protein 7.2 Albumin 3.4 L Urine Color Urine Appearance Urine pH Ur Specific [place] Urine Protein Urine Glucose (UA) Urine Ketones Urine Blood Urine RBC (Auto) 08/26/20 08/26/20 16:27 17:05 WBC RBC Hgb Hct MCV MCH MCHC RDW Plt Count Seg Neutrophils % VBG pH 7.36 VBG pCO2 31.6 L VBG HCO3 17.4 L VBG Base Excess -6.6 Sodium Potassium Chloride Carbon Dioxide Anion Gap BUN Creatinine Est GFR ( Amer) Glucose Lactic Acid Calcium Total Bilirubin AST Alkaline Phosphatase Total Protein Albumin Urine Color YELLOW Urine Appearance SLIGHTLY-CLOUDY Urine pH 5.0 Ur Specific [place] 1.016 Urine Protein 100 H Urine Glucose (UA) NEGATIVE Urine Ketones NEGATIVE Urine Blood MODERATE H Urine RBC (Auto) 3 08/26/20 15:50 Troponin I 0.036 Impressions: Chest X-Ray 08/26/20 15:43 IMPRESSION: Right upper lobe airspace disease. In the appropriate setting this is consistent with pneumonia. Assessment and Plan - Diagnosis (1) Failure to thrive in adult Is this a current diagnosis for this admission?: Yes Plan: -Patient is a diagnosed case of multiple myeloma has recently undergone chemo coming in due to generalized weakness, poor appetite -Weak and frail looking, dehydrated -Hypotensive systolic 70s -Creatinine 2.3 -This is secondary to her multiple myeloma -Started on IV fluids -Dietary consult -Oncology following. Based on history and according to her son it seems that she has stopped responding to treatment and Dr. Raines has discussed hospice with him in the outpatient setting. (2) Multiple myeloma Qualifiers: Multiple myeloma remission status: not in remission Qualified Code(s): C90. 00 - Multiple myeloma not having achieved remission Is this a current diagnosis for this admission?: Yes Plan: -Diagnosed in 2013 status post bone marrow transplant -Currently receiving chemo but not responding last dose Sunday. -Oncology consulted. (3) Pneumonia Qualifiers: Pneumonia type: due to unspecified organism Laterality: right Lung location: upper lobe of lung Qualified Code(s): J18.9 - Pneumonia, unspecified organism Is this a current diagnosis for this admission?: Yes Plan: -Been having cough but no fever at home. -WBC count 5.6 -Recent Covid exposure according to her son -Chest x-ray showing right upper lobe airspace disease -Given 1 dose of Levaquin in the ED -We will switch her to cefepime due to immunocompromise status -Culture pending -Covid test pending (4) Acute kidney injury Is this a current diagnosis for this admission?: Yes Plan: -Creatinine 2.37 from a baseline of 0.85 -This is likely prerenal secondary to poor oral intake -Continue IV fluids - continue to monitor CMP (5) Anemia Qualifiers: Anemia type: bone marrow failure Bone marrow failure anemia type: unspecified bone marrow failure Qualified Code(s): D61.9 - Aplastic anemia, unspecified Is this a current diagnosis for this admission?: Yes Plan: -Has chronic anemia secondary to multiple myeloma -Hemoglobin 9.3, baseline of 11 -On Eliquis for atrial fibrillation -No obvious source of bleeding -We will monitor CBC daily (6) Hypotension Qualifiers: Hypotension type: unspecified hypotension type Qualified Code(s): I95.9 - Hypotension, unspecified Is this a current diagnosis for this admission?: Yes (7) Malnutrition Qualifiers: Malnutrition type: protein-calorie malnutrition Protein-calorie malnutrition severity: moderate Qualified Code(s): E44.0 - Moderate protein- calorie malnutrition Is this a current diagnosis for this admission?: Yes Plan: -Secondary to poor oral intake and ongoing malignancy -Dietary consult (8) Thrombocytopenia Is this a current diagnosis for this admission?: Yes Plan: -Platelet count 27 no obvious signs of bleeding -likely secondary to her chemo and multiple myeloma -We will continue to monitor no indication for platelet transfusion at this time (9) Suspected COVID-19 virus infection Is this a current diagnosis for this admission?: Yes Plan: -Recent exposure to Covid positive relative -Chest x-ray showing right upper lobe pneumonia -Covid test pending -Isolation precaution (10) Hypothyroidism Qualifiers: Hypothyroidism type: unspecified Qualified Code(s): E03.9 - Hypothyroidism, unspecified Is this a current diagnosis for this admission?: Yes Plan: -Levothyroxine resumed (11) Bone marrow replaced by transplant Is this a current diagnosis for this admission?: Yes - Time Time Spent with patient: 35 or more minutes Medications reviewed and adjusted accordingly: Yes Anticipated Discharge Disposition: Home with Home Health Anticipated Discharge Timeframe: to be determined
[2020-08-26] MEDS: DEXTROSE 5%-NORMAL SALINE 1,000 ML IV PRN (20:59)
[2020-08-26] MEDS ORDERED: GABAPENTIN 300 MG CAPSULE PO SCH (22:00)
[2020-08-26] MEDS: FAMOTIDINE INJ/PF 20 MG/2 ML SDV IV SCH (22:11)
[2020-08-26] MEDS: CEFEPIME 1 GM/D5W RTU 1 GM/50 ML RTUPB IV SCH (22:11)
--- NOTE | 2020-08-27 00:32 | EKG REPORT ---
SEVERITY:- ABNORMAL ECG - SINUS TACHYCARDIA VENTRICULAR PREMATURE COMPLEX ABNORMAL T, CONSIDER ISCHEMIA, DIFFUSE LEADS : Confirmed by: Roro Henderson 27-Aug-2020 00:31:19
[2020-08-27] MEDS: DEXTROSE 5%-NORMAL SALINE 1,000 ML IV PRN ×3 (05:18→22:53)
[2020-08-27 05:23] LABS: HEMATOCRIT 23.8 % (36.0-47.0); HEMOGLOBIN 8.1 g/dL (12.0-15.5); MEAN CORPUSCULAR HEMOGLOBIN 31.7 pg (27.0-33.4); MEAN CORPUSCULAR VOLUME 93 fl (80-97); RED BLOOD COUNT 2.55 10^6/uL (3.72-5.28); RED CELL DISTRIBUTION WIDTH 16.3 % (11.5-14.0); WHITE BLOOD COUNT 4.5 10^3/uL (4.0-10.5)
[2020-08-27] MEDS: LEVOTHYROXINE SODIUM 0.025 MG TABLET PO SCH (05:28)
[2020-08-27 06:05] LABS: ALBUMIN 2.5 g/dL (3.5-5.0); ALKALINE PHOSPHATASE 43 U/L (38-126); ANION GAP 10 (5-19); ASPARTATE AMINO TRANSFERASE 102 U/L (14-36); BILIRUBIN,DIRECT 0.2 mg/dL (0.0-0.4); BILIRUBIN,TOTAL 0.4 mg/dL (0.2-1.3); CARBON DIOXIDE 20 mmol/L (22-30); CHLORIDE 111 mmol/L (98-107); GLUCOSE 162 mg/dL (75-110); PHOSPHORUS 2.7 mg/dL (2.5-4.5); POTASSIUM 3.3 mmol/L (3.6-5.0); TOTAL PROTEIN 5.1 g/dL (6.3-8.2)
[2020-08-27 06:10] LABS: ABSOLUTE LYMPHOCYTES# (MANUAL) 0.5 10^3/uL (0.5-4.7); ABSOLUTE MONOCYTES # (MANUAL) 0.5 10^3/uL (0.1-1.4); BAND NEUTROPHILS % (MANUAL) 2 % (3-5); BASOPHILS % (MANUAL) 0 % (0-2); EOSINOPHILS % (MANUAL) 0 % (0-6); LYMPHOCYTES % (MANUAL) 12 % (13-45); MONOCYTES % (MANUAL) 10 % (3-13); SEGMENTED NEUTROPHILS % (MAN) 76 % (42-78); TOTAL CELLS COUNTED 100
[2020-08-27 06:12] LABS: ANISOCYTOSIS 1+; PLATELET COMMENT DECREASED; POIKILOCYTOSIS SLIGHT; POLYCHROMASIA SLIGHT; TEAR DROP CELLS SLIGHT
[2020-08-27 06:27] LABS: BLOOD UREA NITROGEN 45 mg/dL (7-20)
[2020-08-27 06:29] LABS: PLATELET COUNT 25 10^3/uL (150-450)
[2020-08-27] MEDS: POTASSI CL 20 MEQ/50 ML RIDER 20 MEQ/50 ML RTUPB IV SCH ×3 (07:42→11:14)
--- NOTE | 2020-08-27 08:30 | Progress Note ---
Provider Note Provider Note: Hematology/Oncology consult was received. Due to COVID-19 concerns, I was able to speak with patient's nurse, but I did not physically examine her. I was also able to confirm history with her son. Full consult note will be available once out of COVID isolation. Ms. Perez is a 59 year old female who was diagnosed with multiple myeloma in 2013. She underwent autologous stem cell transplant in 2013 and continues to follow with Dr. Carolina at [facility] for her myeloma. She has had numerous types of treatments over the years. Most recently, she was started on Xpovio 100 mg po q 7 days and Dexamethasone 20 mg po q 7 days in Jun of this year. She received her third dose this past Sunday. Recent myeloma labs have not shown significant response to the new treatment thus far. Over the past 3-4 days, family state that patient has become more lethargic and confused. She is not eating as well. No cough, fever, or dyspnea. She was brought to the ED and found to have low BP in addition to the mental status changes. She was admitted for further work-up and treatment. She has had chronic difficulty with hypokalemia and hypomagnesemia, requiring IV treatments weekly in the office. IV potassium has been ordered. I will add IV magnesium today. She is on appropriate ABX while awaiting culture results. I will hold her gabapentin until her mental status has improved. She remains a full code. She has great family support. Please call me with any questions or concerns.
[2020-08-27] MEDS: DULOXETINE HCL 30 MG CAPSULE.DR PO SCH (09:20)
[2020-08-27] MEDS: DOCUSATE SODIUM 100 MG CAPSULE PO SCH ×2 (09:20→17:16)
[2020-08-27] MEDS: FAMOTIDINE INJ/PF 20 MG/2 ML SDV IV SCH ×2 (09:21→22:53)
[2020-08-27] MEDS: CEFEPIME 1 GM/D5W RTU 1 GM/50 ML RTUPB IV SCH ×2 (09:21→22:53)
[2020-08-27] MEDS ORDERED: MIDODRINE HCL 5 MG TABLET PO SCH (10:00)
[2020-08-27] MEDS: ACYCLOVIR 200 MG CAPSULE PO SCH (11:40)
[2020-08-27 13:01] LABS: PATH REVIEW PATHOLOGIST REVIEWED
[2020-08-27] MEDS: MIDODRINE HCL 5 MG TABLET PO SCH ×2 (14:01→17:17)
[2020-08-27] MEDS: MAGNESIUM SULFATE/D5W 1 GM/100 ML RTUPB IV SCH ×4 (14:01→15:12)
--- NOTE | 2020-08-27 14:19 | PDOC PROGRESS REPORT ---
Subjective Date:: 08/27/20 Subjective:: RONY PERDOMO is a 59 year old female, diagnosed case of multiple myeloma rec eiving chemo, hypothyroidism who was brought in via EMS due to failure to thrive. Patient got her last dose of chemo last Sunday in addition to a blood transfusion. And according to her son since then she has been very weak, lethargic with poor appetite, cough. No fever no shortness of breath no diarrhea. She was also apparently exposed to a sister that was recently diagnosed with Covid. EMS noted that her blood pressure was low at systolic of 70s. In the ED blood pressure 87/69, heart rate of 142, temp 97.8, O2 sat 100% on room air. CBC showed WBC count of 5.6, hemoglobin 9.3, platelet count of 27. CMP showed GIANFRANCO with a creatinine of 2.3. Chest x-ray showed possible right upper lobe pneumonia. She was given 2 IV boluses and was started on Levaquin in the ED. According to the ED physician Dr. Marvin was consulted in the ED and apparently he is planning on speaking to the family about transitioning the patient to hospice since she is not responding to multiple myeloma treatments. I also talked to her son about hospice care and he agrees. However he stated that the patient is not agreeable to hospice. D2 hospital stay 08/27/20 She was seen and examined at bedside. She appears less dehydrated but still confused, weak and frail looking. COVID test still pending. Dr. Marquez saw her today and recommended continued management and she will discuss with her family possible going into hospice. Creatinine has normalized. Reason For Visit: FAILURE TO THRIVE Physical Exam Vital Signs: Temp Pulse Resp BP Pulse Ox 100.1 F 101 H 16 87/54 L 98 08/27/20 10:54 08/27/20 10:54 08/27/20 10:54 08/27/20 10:54 08/27/20 10:54 Intake & Output 08/26/20 08/27/20 08/28/20 06:59 06:59 06:59 Intake Total 3440 934 Output Total 800 Balance 2640 934 Weight 65.6 kg 65.6 kg General appearance: PRESENT: mild distress, thin Head exam: PRESENT: atraumatic, normocephalic Eye exam: PRESENT: EOMI, PERRLA, other - exopthalmos Neck exam: PRESENT: full ROM Respiratory exam: PRESENT: clear to auscultation tai, symmetrical, unlabored Cardiovascular exam: PRESENT: RRR, +S1, +S2 Pulses: PRESENT: normal carotid pulses GI/Abdominal exam: PRESENT: normal bowel sounds, soft. ABSENT: rebound, tenderness Extremities exam: PRESENT: full ROM Musculoskeletal exam: PRESENT: full ROM Neurological exam: PRESENT: altered, other - confused and slow to respond Psychiatric exam: PRESENT: normal mood Skin exam: PRESENT: normal color Results Laboratory Results: 08/27/20 04:50 08/27/20 04:50 08/26/20 08/26/20 08/26/20 15:50 15:50 15:50 WBC 5.6 RBC 2.92 L Hgb 9.3 L Hct 27.3 L MCV 93 MCH 31.7 MCHC 33.9 RDW 16.0 H Plt Count 27 L* Seg Neutrophils % Not Reportable VBG pH VBG pCO2 VBG HCO3 VBG Base Excess Sodium 137.9 Potassium 3.8 Chloride 106 Carbon Dioxide 18 L Anion Gap 14 BUN 67 H Creatinine 2.37 H Est GFR ( Amer) 25 L Glucose 138 H Lactic Acid 1.6 Calcium 9.5 Phosphorus Magnesium Total Bilirubin 0.8 AST 173 H Alkaline Phosphatase 54 Total Protein 7.2 Albumin 3.4 L TSH Urine Color Urine Appearance Urine pH Ur Specific [place] Urine Protein Urine Glucose (UA) Urine Ketones Urine Blood Urine RBC (Auto) 08/26/20 08/26/20 08/26/20 16:27 17:05 18:55 WBC RBC Hgb Hct MCV MCH MCHC RDW Plt Count Seg Neutrophils % VBG pH 7.36 VBG pCO2 31.6 L VBG HCO3 17.4 L VBG Base Excess -6.6 Sodium Potassium Chloride Carbon Dioxide Anion Gap BUN Creatinine Est GFR ( Amer) Glucose Lactic Acid 2.0 Calcium Phosphorus Magnesium Total Bilirubin AST Alkaline Phosphatase Total Protein Albumin TSH Urine Color YELLOW Urine Appearance SLIGHTLY-CLOUDY Urine pH 5.0 Ur Specific [place] 1.016 Urine Protein 100 H Urine Glucose (UA) NEGATIVE Urine Ketones NEGATIVE Urine Blood MODERATE H Urine RBC (Auto) 3 08/27/20 08/27/20 08/27/20 04:50 04:50 04:50 WBC 4.5 RBC 2.55 L Hgb 8.1 L Hct 23.8 L MCV 93 MCH 31.7 MCHC 34.0 RDW 16.3 H Plt Count 25 L* Seg Neutrophils % Not Reportable VBG pH VBG pCO2 VBG HCO3 VBG Base Excess Sodium 141.4 Potassium 3.3 L Chloride 111 H Carbon Dioxide 20 L Anion Gap 10 BUN 45 H D Creatinine 1.23 Est GFR ( Amer) 54 L Glucose 162 H Lactic Acid 1.1 Calcium 8.0 L Phosphorus 2.7 Magnesium 1.3 L Total Bilirubin 0.4 AST 102 H Alkaline Phosphatase 43 Total Protein 5.1 L Albumin 2.5 L TSH Urine Color Urine Appearance Urine pH Ur Specific [place] Urine Protein Urine Glucose (UA) Urine Ketones Urine Blood Urine RBC (Auto) 08/27/20 04:50 WBC RBC Hgb Hct MCV MCH MCHC RDW Plt Count Seg Neutrophils % VBG pH VBG pCO2 VBG HCO3 VBG Base Excess Sodium Potassium Chloride Carbon Dioxide Anion Gap BUN Creatinine Est GFR ( Amer) Glucose Lactic Acid Calcium Phosphorus Magnesium Total Bilirubin AST Alkaline Phosphatase Total Protein Albumin TSH 1.09 Urine Color Urine Appearance Urine pH Ur Specific [place] Urine Protein Urine Glucose (UA) Urine Ketones Urine Blood Urine RBC (Auto) 08/26/20 08/27/20 15:50 09:33 Troponin I 0.036 0.014 Impressions: Chest X-Ray 08/26/20 15:43 IMPRESSION: Right upper lobe airspace disease. In the appropriate setting this is consistent with pneumonia. Assessment and Plan - Diagnosis (1) Failure to thrive in adult Is this a current diagnosis for this admission?: Yes Plan: -Patient is a diagnosed case of multiple myeloma has recently undergone chemo coming in due to generalized weakness, poor appetite -Weak and frail looking, dehydrated -Hypotensive systolic 70s -Creatinine 2.3>1.23 -This is secondary to her multiple myeloma -continue IV fluids -Dietary consult -Oncology following. Based on history and according to her son it seems that she has stopped responding to treatment and Dr. Raines has discussed hospice with him in the outpatient setting. (2) Multiple myeloma Qualifiers: Multiple myeloma remission status: not in remission Qualified Code(s): C90.00 - Multiple myeloma not having achieved remission Is this a current diagnosis for this admission?: Yes Plan: -Diagnosed in 2013 status post autologous stem cell transplant - Most recently, she was started on Xpovio 100 mg po q 7 days and Dexamethasone 20 mg po q 7 days in Jun of this year. -Currently receiving chemo but not responding last dose Sunday. -Oncology consulted. (3) Pneumonia Qualifiers: Pneumonia type: due to unspecified organism Laterality: right Lung location: upper lobe of lung Qualified Code(s): J18.9 - Pneumonia, unspecified organism Is this a current diagnosis for this admission?: Yes Plan: -Been having cough but no fever at home. -WBC count 5.6 -Recent Covid exposure according to her son -Chest x-ray showing right upper lobe airspace disease -Given 1 dose of Levaquin in the ED -We will switch her to cefepime due to immunocompromised status -Culture pending -Covid test pending (4) Acute kidney injury Is this a current diagnosis for this admission?: Yes Plan: - RESOLVED -Creatinine 2.37>1.23 from a baseline of 0.85 -This is likely prerenal secondary to poor oral intake -Continue IV fluids - continue to monitor CMP (5) Anemia Qualifiers: Anemia type: bone marrow failure Bone marrow failure anemia type: unspecified bone marrow failure Qualified Code(s): D61.9 - Aplastic anemia, unspecified Is this a current diagnosis for this admission?: Yes Plan: -Has chronic anemia secondary to multiple myeloma -Hemoglobin 9.3, baseline of 11 -On Eliquis for atrial fibrillation -No obvious source of bleeding -We will monitor CBC daily (6) Hypotension Qualifiers: Hypotension type: unspecified hypotension type Qualified Code(s): I95.9 - Hypotension, unspecified Is this a current diagnosis for this admission?: Yes Plan: - I have increased her midodrine to 10 mg TID (7) Malnutrition Qualifiers: Malnutrition type: protein-calorie malnutrition Protein-calorie malnutrition severity: moderate Qualified Code(s): E44.0 - Moderate protein- calorie malnutrition Is this a current diagnosis for this admission?: Yes Plan: -Secondary to poor oral intake and ongoing malignancy - marinol -Dietary consult (8) Thrombocytopenia Is this a current diagnosis for this admission?: Yes Plan: -Platelet count 27>25 no obvious signs of bleeding -likely secondary to her chemo and multiple myeloma -We will continue to monitor no indication for platelet transfusion at this time - SCD for DVT prophylaxis (9) Suspected COVID-19 virus infection Is this a current diagnosis for this admission?: Yes Plan: -Recent exposure to Covid positive relative -Chest x-ray showing right upper lobe pneumonia -Covid test pending -Isolation precaution (10) Hypothyroidism Qualifiers: Hypothyroidism type: unspecified Qualified Code(s): E03.9 - Hypothyroidism, unspecified Is this a current diagnosis for this admission?: Yes Plan: -Levothyroxine resumed (11) Bone marrow replaced by transplant Is this a current diagnosis for this admission?: Yes - Time Time Spent with patient: 25-34 minutes Medications reviewed and adjusted accordingly: Yes Anticipated Discharge Disposition: Home, Self Care Anticipated Discharge Timeframe: to be determined
[2020-08-28] MEDS: LEVOTHYROXINE SODIUM 0.025 MG TABLET PO SCH (05:26)
[2020-08-28 06:22] LABS: ALBUMIN 2.5 g/dL (3.5-5.0); ALKALINE PHOSPHATASE 51 U/L (38-126); ANION GAP 10 (5-19); ASPARTATE AMINO TRANSFERASE 120 U/L (14-36); BILIRUBIN,DIRECT 0.1 mg/dL (0.0-0.4); BILIRUBIN,TOTAL 0.4 mg/dL (0.2-1.3); BLOOD UREA NITROGEN 19 mg/dL (7-20); CARBON DIOXIDE 18 mmol/L (22-30); CHLORIDE 115 mmol/L (98-107); GLUCOSE 136 mg/dL (75-110); POTASSIUM 3.1 mmol/L (3.6-5.0)
[2020-08-28 06:26] LABS: HEMATOCRIT 26.1 % (36.0-47.0); MEAN CORPUSCULAR HEMOGLOBIN 31.8 pg (27.0-33.4); MEAN CORPUSCULAR HGB CONC 34.3 g/dL (32.0-36.0); MEAN CORPUSCULAR VOLUME 93 fl (80-97); RED BLOOD COUNT 2.82 10^6/uL (3.72-5.28); RED CELL DISTRIBUTION WIDTH 16.1 % (11.5-14.0); WHITE BLOOD COUNT 5.8 10^3/uL (4.0-10.5)
[2020-08-28 06:27] LABS: PLATELET COUNT 31 10^3/uL (150-450)
[2020-08-28 06:32] LABS: ABSOLUTE LYMPHOCYTES# (MANUAL) 0.1 10^3/uL (0.5-4.7); ABSOLUTE MONOCYTES # (MANUAL) 0.4 10^3/uL (0.1-1.4); BAND NEUTROPHILS % (MANUAL) 4 % (3-5); BASOPHILS % (MANUAL) 0 % (0-2); EOSINOPHILS % (MANUAL) 0 % (0-6); LYMPHOCYTES % (MANUAL) 2 % (13-45); MONOCYTES % (MANUAL) 7 % (3-13); SEGMENTED NEUTROPHILS % (MAN) 87 % (42-78); TOTAL CELLS COUNTED 100
[2020-08-28 06:33] LABS: ANISOCYTOSIS 1+; PLATELET COMMENT DECREASED; TOXIC GRANULATION SLIGHT; TOXIC VACUOLATION PRESENT
[2020-08-28] MEDS: DEXTROSE 5%-NORMAL SALINE 1,000 ML IV PRN ×2 (07:59→18:05)
[2020-08-28] MEDS: POTASSI CL 20 MEQ/50 ML RIDER 20 MEQ/50 ML RTUPB IV SCH ×3 (08:00→13:22)
[2020-08-28] MEDS: DOCUSATE SODIUM 100 MG CAPSULE PO SCH ×2 (09:07→18:05)
[2020-08-28] MEDS: DULOXETINE HCL 30 MG CAPSULE.DR PO SCH (09:08)
[2020-08-28] MEDS: MAGNESIUM OXIDE 400 MG TABLET PO SCH (09:08)
[2020-08-28] MEDS: MIDODRINE HCL 5 MG TABLET PO SCH ×3 (09:09→18:05)
[2020-08-28] MEDS: FAMOTIDINE INJ/PF 20 MG/2 ML SDV IV SCH ×2 (09:09→22:08)
[2020-08-28] MEDS: POTASSIUM CHLORIDE 20 MEQ PACKET PO SCH (09:09)
[2020-08-28] MEDS: CEFEPIME 1 GM/D5W RTU 1 GM/50 ML RTUPB IV SCH ×2 (11:45→22:11)
[2020-08-28] MEDS: ACYCLOVIR 200 MG CAPSULE PO SCH (12:19)
[2020-08-28] MEDS: MAGNESIUM SULFATE/D5W 1 GM/100 ML RTUPB IV SCH ×2 (12:19→15:36)
--- NOTE | 2020-08-28 14:33 | PDOC CONSULTATION ---
Consultation Consult Date: 08/28/20 Attending physician:: CHADD LIM Provider Consulted: MANUEL HOFFMAN Consult reason:: Patient well-known to our oncology clinic with multiple myeloma on fifth line therapy History of Present Illness Admission Date/PCP: 08/26/20 19:20 SRIRAM GRACE MD Patient complains of: Weakness, confusion History of Present Illness: RONY PERDOMO is a 59 year old female with longstanding history of multiple myeloma, has been dealing with it for almost about 7 years. Has had a multitude of therapies including auto transplant. Most recently she was progressing and was placed on a drug called Xpovio. She had confusion, weakness, lethargy and was brought to the hospital. Here, today her speech is slurred. He does look weak. Covid testing is now negative. She is pancytopenic. However platelets are slightly better today. Past Medical History Cardiac Medical History: Denies: Coronary Artery Disease, Myocardial Infarction, Hypertension Pulmonary Medical History: Denies: Asthma, Bronchitis, Chronic Obstructive Pulmonary Disease (COPD), Pneumonia, Tuberculosis Neurological Medical History: Reports: Migraine Denies: Seizures Endocrine Medical History: Reports: Hypothyroidism Renal/ Medical History: Reports: Chronic Kidney Disease Malignancy Medical History: Reports: Leukemia, Other - Hx Multiple Myeloma s/p bone marrow transplant in 2013 Musculoskeltal Medical History: Reports: Arthritis - Fingers Psychiatric Medical History: Reports: Depression Hematology: Reports: Anemia Past Surgical History Past Surgical History: Reports: Cholecystectomy, Orthopedic Surgery, Tubal Ligation, Other - Bone marrow transplant in 2013 Social History Information Source: Patient Lives with: Family Smoking Status: Former Smoker Electronic Cigarette use?: No Frequency of Alcohol Use: None Hx Recreational Drug Use: No Drugs: None Hx Prescription Drug Abuse: No - Advance Directive Resuscitation Status: Full Code Family History Family History: Reviewed & Not Pertinent, CAD, DM, Hypertension Parental Family History Reviewed: Yes Children Family History Reviewed: Yes Sibling(s) Family History Reviewed.: Yes Medication/Allergy Home Medications: Acyclovir [Acyclovir 400 mg Tablet] 400 mg PO DAILY 10/16/17 Apixaban [Eliquis 5 mg Tablet] 5 mg PO Q12 10/16/17 Gabapentin [Neurontin 300 mg Capsule] 900 mg PO DAILY 10/16/17 Potassium Chloride [Klor-Con M20] 20 meq PO DAILY 10/16/17 Dexlansoprazole [Dexilant 30 mg Capsule] 30 mg PO DAILY 08/27/20 Ergocalciferol (Vitamin D2) [Drisdol 50,000 unit (1.25MG) Capsule] 50,000 unit PO KELLER@1000 08/27/20 Fluoride (Sodium) [Prevident 5000] 1 applic PO BID 08/27/20 Levothyroxine Sodium [Synthroid 0.025 mg Tablet] 0.025 mg PO Q6AM 08/27/20 Magnesium Oxide [Mag-Ox 400 mg Tablet] 400 mg PO DAILY 08/27/20 Megestrol Acetate [Megace Meg 400 mg/10 ml Udcup] 625 mg PO DAILY 08/27/20 Melatonin [Melatonin 3 mg Tablet] 3 mg PO QHS 08/27/20 Metoprolol Succinate [Toprol Xl 25 mg Tab.sr] 25 mg PO Q12 08/27/20 Midodrine HCl 10 mg PO TID 08/27/20 Olanzapine 10 mg PO DAILY 08/27/20 Omeprazole 40 mg PO DAILY 08/27/20 Oxycodone HCl [Oxy-Ir 5 mg Tablet] 10 mg PO Q4HP PRN 08/27/20 Oxycodone Myristate [Xtampza ER] 18 mg PO Q12 08/27/20 Oxycodone Myristate [Xtampza ER] 36 mg PO Q12 08/27/20 Propafenone HCl [Rythmol 150 mg Tablet] 150 mg PO TID 08/27/20 Allergies/Adverse Reactions: No Known Drug Allergies Allergy (Verified 05/03/20 11:38) Review of Systems Constitutional: ABSENT: chills, fever(s), headache(s), weight gain, weight loss Eyes: ABSENT: visual disturbances Ears: ABSENT: hearing changes Cardiovascular: ABSENT: chest pain, dyspnea on exertion, edema, orthropnea, palpitations Respiratory: ABSENT: cough, hemoptysis Gastrointestinal: ABSENT: abdominal pain, constipation, diarrhea, hematemesis, hematochezia, nausea, vomiting Genitourinary: ABSENT: dysuria, hematuria Musculoskeletal: ABSENT: joint swelling Integumentary: ABSENT: rash, wounds Neurological: ABSENT: abnormal gait, abnormal speech, confusion, dizziness, focal weakness, syncope Psychiatric: ABSENT: anxiety, depression, homidical ideation, suicidal ideation Endocrine: ABSENT: cold intolerance, heat intolerance, polydipsia, polyuria Hematologic/Lymphatic: ABSENT: easy bleeding, easy bruising Physical Exam Vital Signs: Temp Pulse Resp BP Pulse Ox 98.1 F 116 H 16 120/75 100 08/28/20 11:26 08/28/20 11:26 08/28/20 11:26 08/28/20 11:26 08/28/20 11:26 Intake & Output 08/27/20 08/28/20 08/29/20 06:59 06:59 06:59 Intake Total 3440 3234 250 Output Total 800 1000 550 Balance 2640 2234 -300 Weight 65.6 kg 72.2 kg 72.2 kg General appearance: PRESENT: no acute distress, well-developed, well-nourished Head exam: PRESENT: atraumatic, normocephalic Eye exam: PRESENT: conjunctiva pink, EOMI, PERRLA. ABSENT: scleral icterus Ear exam: PRESENT: normal external ear exam Mouth exam: PRESENT: moist, tongue midline Neck exam: ABSENT: carotid bruit, JVD, lymphadenopathy, thyromegaly Respiratory exam: PRESENT: clear to auscultation tai. ABSENT: rales, rhonchi, wheezes Cardiovascular exam: PRESENT: RRR. ABSENT: diastolic murmur, rubs, systolic murmur Pulses: PRESENT: normal dorsalis pedis pul Vascular exam: PRESENT: normal capillary refill GI/Abdominal exam: PRESENT: normal bowel sounds, soft. ABSENT: distended, guarding, mass, organolmegaly, rebound, tenderness Rectal exam: PRESENT: deferred Extremities exam: PRESENT: full ROM. ABSENT: calf tenderness, clubbing, pedal edema Neurological exam: PRESENT: alert, awake, oriented to person, oriented to place, oriented to time, oriented to situation, CN II-XII grossly intact. ABSENT: motor sensory deficit Psychiatric exam: PRESENT: appropriate affect, normal mood. ABSENT: homicidal ideation, suicidal ideation Skin exam: PRESENT: dry, intact, warm. ABSENT: cyanosis, rash Results Laboratory Results: 08/28/20 05:20 08/28/20 05:20 08/28/20 08/28/20 05:20 05:20 WBC 5.8 RBC 2.82 L Hgb 9.0 L Hct 26.1 L MCV 93 MCH 31.8 MCHC 34.3 RDW 16.1 H Plt Count 31 L Seg Neutrophils % Not Reportable Sodium 142.5 Potassium 3.1 L Chloride 115 H Carbon Dioxide 18 L Anion Gap 10 BUN 19 Creatinine 0.60 Est GFR ( Amer) > 60 Glucose 136 H Calcium 8.0 L Magnesium 1.2 L* Total Bilirubin 0.4 AST 120 H Alkaline Phosphatase 51 Total Protein 5.0 L Albumin 2.5 L 08/26/20 08/27/20 15:50 09:33 Troponin I 0.036 0.014 Impressions: Chest X-Ray 08/26/20 15:43 IMPRESSION: Right upper lobe airspace disease. In the appropriate setting this is consistent with pneumonia. Assessment & Plan - Diagnosis (1) Multiple myeloma Qualifiers: Multiple myeloma remission status: in relapse Qualified Code(s): C90.02 - Multiple myeloma in relapse Is this a current diagnosis for this admission?: Yes Plan: Relapsed multiple myeloma on fifth line therapy. Knowing pt, she is not ready for comfort care or hospice measures. So continue with primary team care and supportive care to get her better. Counts should improve over time. We will follow. - Time Time Spent: Greater than 70 Minutes
--- NOTE | 2020-08-28 15:13 | PDOC PROGRESS REPORT ---
Subjective Date:: 08/28/20 Subjective:: RONY PERDOMO is a 59 year old female, diagnosed case of multiple myeloma rec eiving chemo, hypothyroidism who was brought in via EMS due to failure to thrive. Patient got her last dose of chemo last Sunday in addition to a blood transfusion. And according to her son since then she has been very weak, lethargic with poor appetite, cough. No fever no shortness of breath no diarrhea. She was also apparently exposed to a sister that was recently diagnosed with Covid. EMS noted that her blood pressure was low at systolic of 70s. In the ED blood pressure 87/69, heart rate of 142, temp 97.8, O2 sat 100% on room air. CBC showed WBC count of 5.6, hemoglobin 9.3, platelet count of 27. CMP showed GIANFRANCO with a creatinine of 2.3. Chest x-ray showed possible right upper lobe pneumonia. She was given 2 IV boluses and was started on Levaquin in the ED. According to the ED physician Dr. Marvin was consulted in the ED and apparently he is planning on speaking to the family about transitioning the patient to hospice since she is not responding to multiple myeloma treatments. I also talked to her son about hospice care and he agrees. However he stated that the patient is not agreeable to hospice. D2 hospital stay 08/27/20 She was seen and examined at bedside. She appears less dehydrated but still confused, weak and frail looking. COVID test still pending. Dr. Marquez saw her today and recommended continued management and she will discuss with her family possible going into hospice. Creatinine has normalized. Reason For Visit: FAILURE TO THRIVE Physical Exam Vital Signs: Temp Pulse Resp BP Pulse Ox 98.1 F 116 H 16 120/75 100 08/28/20 11:26 08/28/20 11:26 08/28/20 11:26 08/28/20 11:26 08/28/20 11:26 Intake & Output 08/27/20 08/28/20 08/29/20 06:59 06:59 06:59 Intake Total 3440 3234 250 Output Total 800 1000 550 Balance 2640 2234 -300 Weight 65.6 kg 72.2 kg 72.2 kg General appearance: PRESENT: no acute distress, cooperative, thin Head exam: PRESENT: atraumatic, normocephalic Eye exam: PRESENT: EOMI, PERRLA, other - exopthalmos Mouth exam: PRESENT: moist Neck exam: PRESENT: full ROM Respiratory exam: PRESENT: clear to auscultation tai, symmetrical, unlabored Cardiovascular exam: PRESENT: RRR, +S1, +S2 Pulses: PRESENT: normal radial pulses GI/Abdominal exam: PRESENT: normal bowel sounds, soft. ABSENT: rebound, tenderness Extremities exam: PRESENT: full ROM Musculoskeletal exam: PRESENT: full ROM Neurological exam: PRESENT: altered - She is very confused not oriented to place and time and situation, poor insight Psychiatric exam: PRESENT: normal mood Skin exam: PRESENT: normal color Results Laboratory Results: 08/28/20 05:20 08/28/20 05:20 08/28/20 08/28/20 05:20 05:20 WBC 5.8 RBC 2.82 L Hgb 9.0 L Hct 26.1 L MCV 93 MCH 31.8 MCHC 34.3 RDW 16.1 H Plt Count 31 L Seg Neutrophils % Not Reportable Sodium 142.5 Potassium 3.1 L Chloride 115 H Carbon Dioxide 18 L Anion Gap 10 BUN 19 Creatinine 0.60 Est GFR ( Amer) > 60 Glucose 136 H Calcium 8.0 L Magnesium 1.2 L* Total Bilirubin 0.4 AST 120 H Alkaline Phosphatase 51 Total Protein 5.0 L Albumin 2.5 L 08/26/20 08/27/20 15:50 09:33 Troponin I 0.036 0.014 Impressions: Chest X-Ray 08/26/20 15:43 IMPRESSION: Right upper lobe airspace disease. In the appropriate setting this is consistent with pneumonia. Assessment and Plan - Diagnosis (1) Failure to thrive in adult Is this a current diagnosis for this admission?: Yes Plan: -Patient is a diagnosed case of multiple myeloma has recently undergone chemo coming in due to generalized weakness, poor appetite -Weak and frail looking, dehydrated -Creatinine 2.3>1.23 -This is secondary to her multiple myeloma -continue IV fluids -Dietary consult -Oncology following. Based on history and according to her son it seems that she has stopped responding to treatment and Dr. Raines has discussed hospice with him in the outpatient setting. (2) Multiple myeloma Qualifiers: Multiple myeloma remission status: in relapse Qualified Code(s): C90.02 - Multiple myeloma in relapse Is this a current diagnosis for this admission?: Yes Plan: -Diagnosed in 2013 status post autologous stem cell transplant - Most recently, she was started on Xpovio 100 mg po q 7 days and Dexamethasone 20 mg po q 7 days in Jun of this year. -Currently receiving chemo but not responding last dose Sunday. -Oncology consulted. - she is hospice appropriate however according to her son she was not ready to discuss this. (3) Pneumonia Qualifiers: Pneumonia type: due to unspecified organism Laterality: right Lung location: upper lobe of lung Qualified Code(s): J18.9 - Pneumonia, unspecified organism Is this a current diagnosis for this admission?: Yes Plan: -Been having cough but no fever at home. -WBC count 5.6 -Recent Covid exposure according to her son -Chest x-ray showing right upper lobe airspace disease -We will switch her to cefepime due to immunocompromised status -Culture negative -Covid test negative (4) Acute kidney injury Is this a current diagnosis for this admission?: Yes Plan: - RESOLVED -Creatinine 2.37>1.23 from a baseline of 0.85 -This is likely prerenal secondary to poor oral intake -Continue IV fluids - continue to monitor CMP (5) Anemia Qualifiers: Anemia type: bone marrow failure Bone marrow failure anemia type: unspecified bone marrow failure Qualified Code(s): D61.9 - Aplastic anemia, unspecified Is this a current diagnosis for this admission?: Yes Plan: -Has chronic anemia secondary to multiple myeloma -Hemoglobin 9.3, baseline of 11 -On Eliquis for atrial fibrillation -No obvious source of bleeding -We will monitor CBC daily (6) Hypotension Qualifiers: Hypotension type: unspecified hypotension type Qualified Code(s): I95.9 - Hypotension, unspecified Is this a current diagnosis for this admission?: Yes Plan: - I have increased her midodrine to 10 mg TID (7) Malnutrition Qualifiers: Malnutrition type: protein-calorie malnutrition Protein-calorie malnutrition severity: moderate Qualified Code(s): E44.0 - Moderate protein- calorie malnutrition Is this a current diagnosis for this admission?: Yes Plan: -Secondary to poor oral intake and ongoing malignancy - marinol -Dietary consult (8) Thrombocytopenia Is this a current diagnosis for this admission?: Yes Plan: -Platelet count 27>25 no obvious signs of bleeding -likely secondary to her chemo and multiple myeloma -We will continue to monitor no indication for platelet transfusion at this time - SCD for DVT prophylaxis (9) Suspected COVID-19 virus infection Is this a current diagnosis for this admission?: Yes Plan: -Recent exposure to Covid positive relative -Chest x-ray showing right upper lobe pneumonia -Covid test pending -Isolation precaution (10) Hypothyroidism Qualifiers: Hypothyroidism type: unspecified Qualified Code(s): E03.9 - Hypothyroidism, unspecified Is this a current diagnosis for this admission?: Yes Plan: -Levothyroxine resumed (11) Bone marrow replaced by transplant Is this a current diagnosis for this admission?: Yes - Time Time Spent with patient: 25-34 minutes Medications reviewed and adjusted accordingly: Yes Anticipated Discharge Disposition: Home, Self Care Anticipated Discharge Timeframe: to be determined
[2020-08-28] MEDS ORDERED: MAGNESIUM SULFATE/D5W 1 GM/100 ML RTUPB IV ONE (16:00)
[2020-08-29] MEDS: HYDROMORPHONE HCL INJ/PF 2 MG/ML AMPULE IV PRN (03:28)
[2020-08-29] MEDS: DEXTROSE 5%-NORMAL SALINE 1,000 ML IV PRN ×3 (03:29→22:44)
[2020-08-29] MEDS: LEVOTHYROXINE SODIUM 0.025 MG TABLET PO SCH ×2 (05:35→05:43)
[2020-08-29 06:23] LABS: HEMATOCRIT 21.9 % (36.0-47.0); MEAN CORPUSCULAR HEMOGLOBIN 32.4 pg (27.0-33.4); MEAN CORPUSCULAR HGB CONC 34.7 g/dL (32.0-36.0); MEAN CORPUSCULAR VOLUME 94 fl (80-97); RED BLOOD COUNT 2.34 10^6/uL (3.72-5.28); RED CELL DISTRIBUTION WIDTH 16.7 % (11.5-14.0); WHITE BLOOD COUNT 6.2 10^3/uL (4.0-10.5)
[2020-08-29 06:37] LABS: ALKALINE PHOSPHATASE 42 U/L (38-126); ANION GAP 8 (5-19); ASPARTATE AMINO TRANSFERASE 66 U/L (14-36); BILIRUBIN,DIRECT 0.2 mg/dL (0.0-0.4); BILIRUBIN,TOTAL 0.5 mg/dL (0.2-1.3); BLOOD UREA NITROGEN 13 mg/dL (7-20); CALCIUM 7.3 mg/dL (8.4-10.2); CARBON DIOXIDE 19 mmol/L (22-30); CHLORIDE 116 mmol/L (98-107); GLUCOSE 134 mg/dL (75-110); POTASSIUM 3.2 mmol/L (3.6-5.0); TOTAL PROTEIN 4.4 g/dL (6.3-8.2)
[2020-08-29 08:28] LABS: HEMOGLOBIN 7.6 g/dL (12.0-15.5)
[2020-08-29 08:31] LABS: ABSOLUTE LYMPHOCYTES# (MANUAL) 0.1 10^3/uL (0.5-4.7); ABSOLUTE MONOCYTES # (MANUAL) 0.1 10^3/uL (0.1-1.4); BASOPHILS % (MANUAL) 0 % (0-2); EOSINOPHILS % (MANUAL) 0 % (0-6); LYMPHOCYTES % (MANUAL) 2 % (13-45); MONOCYTES % (MANUAL) 2 % (3-13); SEGMENTED NEUTROPHILS % (MAN) 96 % (42-78); TOTAL CELLS COUNTED 100
[2020-08-29 08:33] LABS: ANISOCYTOSIS 1+
[2020-08-29 08:34] LABS: OVALOCYTES SLIGHT; PLATELET COMMENT DECREASED
[2020-08-29 08:37] LABS: PLATELET COUNT 30 10^3/uL (150-450)
[2020-08-29] MEDS: FAMOTIDINE INJ/PF 20 MG/2 ML SDV IV SCH ×2 (10:36→22:43)
[2020-08-29] MEDS: DOCUSATE SODIUM 100 MG CAPSULE PO SCH ×2 (10:36→19:43)
[2020-08-29] MEDS: POTASSIUM CHLORIDE 20 MEQ PACKET PO SCH (10:36)
[2020-08-29] MEDS: MIDODRINE HCL 5 MG TABLET PO SCH ×3 (10:36→19:43)
[2020-08-29] MEDS: MAGNESIUM OXIDE 400 MG TABLET PO SCH (10:36)
[2020-08-29] MEDS: DULOXETINE HCL 30 MG CAPSULE.DR PO SCH (10:36)
[2020-08-29] MEDS: CEFEPIME 1 GM/D5W RTU 1 GM/50 ML RTUPB IV SCH ×2 (10:37→22:44)
[2020-08-29] MEDS: ACYCLOVIR 200 MG CAPSULE PO SCH (10:57)
[2020-08-29] MEDS ORDERED: MAGNESIUM SULFATE 4 GM/100 ML RTUPB IV ONE (16:00)
--- NOTE | 2020-08-29 18:01 | RADIOLOGY REPORT (SQ) ---
EXAM DESCRIPTION: MRI HEAD COMBO IMAGES COMPLETED DATE/TIME: 08/29/2020 3:56 pm REASON FOR STUDY: altered mental status COMPARISON: CT head, 05/03/2020. TECHNIQUE: Multiplanar imaging includes noncontrasted T1, T2, FLAIR, diffusion with ADC map and post gadolinium contrast T1 sequences. Images stored on PACS. CONTRAST TYPE AND DOSE: 15 mL ProHance RENAL FUNCTION: Not indicated. ACR Type II contrast agent associated with few, if any, unconfounded cases of NSF LIMITATIONS: Motion obscures detail on postcontrast images. FINDINGS: ANATOMY: No anomalies. Normal vascular flow voids. Pituitary fossa normal. CSF SPACES: Normal in size and contour. No hemorrhage. CEREBRUM: Sulci and gyri normal in size and contour. Mild patchy hyperintense white matter signal on FLAIR imaging. No evidence of hemorrhage, mass, or extraaxial fluid collection. No abnormal enhancem ent post contrast. POSTERIOR FOSSA: No signal alteration. No hemorrhage. No edema, masses, or mass effect. Internal senait tory canals, cerebellopontine angles, mastoids normal. No enhancing lesions. No abnormal enhancement post contrast. DIFFUSION IMAGING: Negative for acute or subacute infarction. ORBITS: No masses. Globes normal. PARANASAL SINUSES: No fluid levels. Mucosa normal. OTHER: No other significant finding. IMPRESSION: Limited evaluation of postcontrast images due to motion. Within the limits of the exam there is no evidence of acute ischemia, mass, mass effect or intracranial hemorrhage. Mild chronic s mall vessel ischemic change. EVIDENCE OF ACUTE STROKE: NO. TECHNICAL DOCUMENTATION: JOB ID: [id number] 2010 [employer]- All Rights Reserved Reading location - IP/workstation name: [email or web address]
--- NOTE | 2020-08-29 21:39 | PDOC PROGRESS REPORT ---
Subjective Date:: 08/29/20 Subjective:: RONY PERDOMO is a 59 year old female, diagnosed case of multiple myeloma rec eiving chemo, hypothyroidism who was brought in via EMS due to failure to thrive. Patient got her last dose of chemo last Sunday in addition to a blood transfusion. And according to her son since then she has been very weak, lethargic with poor appetite, cough. No fever no shortness of breath no diarrhea. She was also apparently exposed to a sister that was recently diagnosed with Covid. EMS noted that her blood pressure was low at systolic of 70s. In the ED blood pressure 87/69, heart rate of 142, temp 97.8, O2 sat 100% on room air. CBC showed WBC count of 5.6, hemoglobin 9.3, platelet count of 27. CMP showed GIANFRANCO with a creatinine of 2.3. Chest x-ray showed possible right upper lobe pneumonia. She was given 2 IV boluses and was started on Levaquin in the ED. According to the ED physician Dr. Marvin was consulted in the ED and apparently he is planning on speaking to the family about transitioning the patient to hospice since she is not responding to multiple myeloma treatments. I also talked to her son about hospice care and he agrees. However he stated that the patient is not agreeable to hospice. D2 hospital stay 08/27/20 She was seen and examined at bedside. She appears less dehydrated but still confused, weak and frail looking. COVID test still pending. Dr. Marquez saw her today and recommended continued management and she will discuss with her family possible going into hospice. Creatinine has normalized. D3 hospital stay 08/28/20. Still very confused and barely eating any food. Updated roberto her son about current condition. D3 hospital stay 08/29/20. No significant change, denies any pain. has episodes of PVC in bigeminy. I have reached out to Dr. Marquez regarding her clinical deterioration and FULL code status. I am worried that she may code anytime and have CPR performed on her which will be futile since she has terminal cancer. Dr. Marquez who is her PCP will attempt to talk to her and her son again tomorrow. Reason For Visit: FAILURE TO THRIVE Physical Exam Vital Signs: Temp Pulse Resp BP Pulse Ox 97.9 F 125 H 16 116/87 H 98 08/29/20 19:56 08/29/20 19:56 08/29/20 19:56 08/29/20 19:56 08/29/20 19:56 Intake & Output 08/28/20 08/29/20 08/30/20 06:59 06:59 06:59 Intake Total 3234 2800 1400 Output Total 1000 1500 700 Balance 2234 1300 700 Weight 72.2 kg 74 kg General appearance: PRESENT: no acute distress, cooperative, thin Head exam: PRESENT: atraumatic, normocephalic Eye exam: PRESENT: EOMI, PERRLA, other - exopthalmos Mouth exam: PRESENT: moist Neck exam: PRESENT: full ROM Respiratory exam: PRESENT: clear to auscultation tai, symmetrical, unlabored Cardiovascular exam: PRESENT: RRR, +S1, +S2 Pulses: PRESENT: normal radial pulses GI/Abdominal exam: PRESENT: normal bowel sounds, soft. ABSENT: rebound, tenderness Extremities exam: PRESENT: full ROM Musculoskeletal exam: PRESENT: full ROM Neurological exam: PRESENT: altered, other - confused, weak and frail looking Psychiatric exam: PRESENT: flat affect, normal mood Skin exam: PRESENT: normal color Results Laboratory Results: 08/29/20 05:40 08/29/20 05:40 08/29/20 08/29/20 05:40 05:40 WBC 6.2 RBC 2.34 L Hgb 7.6 L Hct 21.9 L MCV 94 MCH 32.4 MCHC 34.7 RDW 16.7 H Plt Count 30 L* Seg Neutrophils % Not Reportable Sodium 143.2 Potassium 3.2 L Chloride 116 H Carbon Dioxide 19 L Anion Gap 8 BUN 13 Creatinine 0.47 L Est GFR ( Amer) > 60 Glucose 134 H Calcium 7.3 L Magnesium 1.3 L Total Bilirubin 0.5 AST 66 H Alkaline Phosphatase 42 Total Protein 4.4 L Albumin 2.0 L 08/26/20 08/27/20 15:50 09:33 Troponin I 0.036 0.014 Impressions: Chest X-Ray 08/26/20 15:43 IMPRESSION: Right upper lobe airspace disease. In the appropriate setting this is consistent with pneumonia. Head MRI 08/29/20 00:00 IMPRESSION: Limited evaluation of postcontrast images due to motion. Within the limits of the exam there is no evidence of acute ischemia, mass, mass effect or intracranial hemorrhage. Mild chronic small vessel ischemic change. EVIDENCE OF ACUTE STROKE: NO. Assessment and Plan - Diagnosis (1) Failure to thrive in adult Is this a current diagnosis for this admission?: Yes Plan: -Patient is a diagnosed case of multiple myeloma has recently undergone chemo coming in due to generalized weakness, poor appetite -Weak and frail looking, -Creatinine 2.3>1.23>0.47 -This is secondary to her multiple myeloma -continue IV fluids -Dietary consult -Oncology following. Based on history and according to her son it seems that she has stopped responding to treatment and Dr. Marquez has discussed hospice with him in the outpatient setting. She is hospice appropriate. (2) Multiple myeloma Qualifiers: Multiple myeloma remission status: in relapse Qualified Code(s): C90.02 - Multiple myeloma in relapse Is this a current diagnosis for this admission?: Yes Plan: -Diagnosed in 2013 status post autologous stem cell transplant - Most recently, she was started on Xpovio 100 mg po q 7 days and Dexamethasone 20 mg po q 7 days in Jun of this year. -Currently receiving chemo but not responding last dose Sunday. -Oncology consulted. - she is hospice appropriate however according to her son she was not ready to discuss this. (3) Pneumonia Qualifiers: Pneumonia type: due to unspecified organism Laterality: right Lung location: upper lobe of lung Qualified Code(s): J18.9 - Pneumonia, unspecified organism Is this a current diagnosis for this admission?: Yes Plan: -Been having cough but no fever at home. -WBC count 5.6 -Recent Covid exposure according to her son -Chest x-ray showing right upper lobe airspace disease -We will switch her to cefepime due to immunocompromised status -Culture negative -Covid test negative (4) Acute kidney injury Is this a current diagnosis for this admission?: Yes Plan: - RESOLVED -Creatinine 2.37>1.23 from a baseline of 0.85 -This is likely prerenal secondary to poor oral intake -Continue IV fluids - continue to monitor CMP (5) Anemia Qualifiers: Anemia type: bone marrow failure Bone marrow failure anemia type: unspecified bone marrow failure Qualified Code(s): D61.9 - Aplastic anemia, unspecified Is this a current diagnosis for this admission?: Yes Plan: -Has chronic anemia secondary to multiple myeloma -Hemoglobin 9.3, baseline of 11 -On Eliquis for atrial fibrillation -No obvious source of bleeding -We will monitor CBC daily (6) Hypotension Qualifiers: Hypotension type: unspecified hypotension type Qualified Code(s): I95.9 - Hypotension, unspecified Is this a current diagnosis for this admission?: Yes Plan: - resolved ctm (7) Malnutrition Qualifiers: Malnutrition type: protein-calorie malnutrition Protein-calorie malnutrition severity: moderate Qualified Code(s): E44.0 - Moderate protein- calorie malnutrition Is this a current diagnosis for this admission?: Yes Plan: -Secondary to poor oral intake and ongoing malignancy - marinol -Dietary consult (8) Thrombocytopenia Is this a current diagnosis for this admission?: Yes Plan: -Platelet count 27>25 no obvious signs of bleeding -likely secondary to her chemo and multiple myeloma -We will continue to monitor no indication for platelet transfusion at this time - SCD for DVT prophylaxis (9) Suspected COVID-19 virus infection Is this a current diagnosis for this admission?: Yes Plan: -Recent exposure to Covid positive relative -Chest x-ray showing right upper lobe pneumonia -Covid test pending -Isolation precaution (10) Hypothyroidism Qualifiers: Hypothyroidism type: unspecified Qualified Code(s): E03.9 - Hypothyroidism, unspecified Is this a current diagnosis for this admission?: Yes Plan: -Levothyroxine resumed (11) Bone marrow replaced by transplant Is this a current diagnosis for this admission?: Yes - Time Time Spent with patient: 25-34 minutes Anticipated Discharge Disposition: Home with Hospice Anticipated Discharge Timeframe: to be determined
[2020-08-30] MEDS: LEVOTHYROXINE SODIUM 0.025 MG TABLET PO SCH (06:27)
--- NOTE | 2020-08-30 06:40 | ADVANCED CARE ---
- Diagnosis (1) Failure to thrive in adult Diagnosis Current: Yes (2) Multiple myeloma Diagnosis Current: Yes (3) Pneumonia Diagnosis Current: Yes (4) Acute kidney injury Diagnosis Current: Yes (5) Anemia Diagnosis Current: Yes (6) Hypotension Diagnosis Current: Yes (7) Malnutrition Diagnosis Current: Yes (8) Thrombocytopenia Diagnosis Current: Yes (9) Suspected COVID-19 virus infection Diagnosis Current: Yes (10) Hypothyroidism Diagnosis Current: Yes Attendance: Son Marcelo, Dr. Marquez over the phone and I Resuscitation Status: Full Code Discussion: I talked to Marcelo,the patient's son asking as surrogate, about his moms clinical status of Multiple myeloma who has failed multiple treatment options. HE stated that he understood and mentioned that Dr. Marquez has discussed the same thing with him and that hospice was discussed as well. According to Marcelo and this was confirmed by Dr. Marquez when I talked to her, the patient herself would not want to be hospice and wants to remain full code. I attempted to ask the patient about her goals of care but she is unable to participate meaningfully. In my medical opinion the patient is hospice appropriate in light of her terminal cancer non responding to treatment, failure to thrive, recurrent electrolyte abnormality 2/2 poor oral intake. Document(s) Completed: none Time Spent: >16 min, less than 30 min
[2020-08-30 06:48] LABS: ALBUMIN 2.4 g/dL (3.5-5.0); ALKALINE PHOSPHATASE 54 U/L (38-126); ANION GAP 11 (5-19); ASPARTATE AMINO TRANSFERASE 65 U/L (14-36); BILIRUBIN,DIRECT 0.2 mg/dL (0.0-0.4); BILIRUBIN,TOTAL 0.5 mg/dL (0.2-1.3); BLOOD UREA NITROGEN 13 mg/dL (7-20); CALCIUM 7.5 mg/dL (8.4-10.2); CARBON DIOXIDE 18 mmol/L (22-30); CHLORIDE 116 mmol/L (98-107); GLUCOSE 120 mg/dL (75-110)
[2020-08-30 07:08] LABS: POTASSIUM 2.9 mmol/L (3.6-5.0)
--- NOTE | 2020-08-30 08:59 | PDOC PROGRESS REPORT ---
Subjective Date:: 08/30/20 Subjective:: Patient is still much slower to respond than her baseline. She is still confuse d, but tells me that she is feeling good. She does not remember what she had for dinner last night, bit states that the banana on her tray this morning looks good. Nurses report no concerns, except continued confusion. She was not able to swallow all of her medications yesterday. Reason For Visit: FAILURE TO THRIVE Physical Exam Vital Signs: Temp Pulse Resp BP Pulse Ox 97.8 F 131 H 16 132/90 H 100 08/29/20 23:32 08/30/20 07:00 08/29/20 23:32 08/30/20 05:19 08/29/20 23:32 Intake & Output 08/29/20 08/30/20 08/31/20 06:59 06:59 06:59 Intake Total 2800 1570 1150 Output Total 1500 1800 Balance 1300 -230 1150 Weight 74 kg 74 kg General appearance: PRESENT: no acute distress Head exam: PRESENT: normocephalic Eye exam: PRESENT: EOMI Respiratory exam: PRESENT: unlabored Cardiovascular exam: PRESENT: RRR Extremities exam: ABSENT: pedal edema Neurological exam: PRESENT: altered, awake. ABSENT: oriented to place, oriented to time Psychiatric exam: PRESENT: flat affect Skin exam: PRESENT: normal color Results Laboratory Results: 08/29/20 05:40 08/30/20 05:35 08/30/20 05:35 Sodium 145.1 H Potassium 2.9 L* Chloride 116 H Carbon Dioxide 18 L Anion Gap 11 BUN 13 Creatinine 0.43 L Est GFR ( Amer) > 60 Glucose 120 H Calcium 7.5 L Total Bilirubin 0.5 AST 65 H Alkaline Phosphatase 54 Total Protein 5.0 L Albumin 2.4 L 08/26/20 08/27/20 15:50 09:33 Troponin I 0.036 0.014 Impressions: Chest X-Ray 08/26/20 15:43 IMPRESSION: Right upper lobe airspace disease. In the appropriate setting this is consistent with pneumonia. Head MRI 08/29/20 00:00 IMPRESSION: Limited evaluation of postcontrast images due to motion. Within the limits of the exam there is no evidence of acute ischemia, mass, mass effect or intracranial hemorrhage. Mild chronic small vessel ischemic change. EVIDENCE OF ACUTE STROKE: NO. Assessment & Plan - Diagnosis (1) Multiple myeloma Qualifiers: Multiple myeloma remission status: in relapse Qualified Code(s): C90.02 - Multiple myeloma in relapse Is this a current diagnosis for this admission?: Yes Plan: I am still not sure why she is having the mental status changes. MRI scan was negative. However, she may have leptomeningeal involovement. Confirmation would require LP. However, I spoke with patient and her son today. Patient states that she understands that her myeloma is no longer responding. Her K and Mag have continued to be a problem, requiring daily IV replacement. We discussed discharge home with Hospice. Patient is agreeable. Son would like to discuss with other family members prior to making this decision. Will continue all treatments for now until I have confirmation from the family for Hospice services. - Time Time Spent with patient: 15-24 minutes
[2020-08-30] MEDS: CEFEPIME 1 GM/D5W RTU 1 GM/50 ML RTUPB IV SCH (09:08)
[2020-08-30] MEDS: DULOXETINE HCL 30 MG CAPSULE.DR PO SCH (09:11)
[2020-08-30] MEDS: FAMOTIDINE INJ/PF 20 MG/2 ML SDV IV SCH ×2 (09:11→22:16)
[2020-08-30] MEDS: MAGNESIUM OXIDE 400 MG TABLET PO SCH (09:11)
[2020-08-30] MEDS: APIXABAN 5 MG TABLET PO SCH ×2 (09:11→22:16)
[2020-08-30] MEDS: DOCUSATE SODIUM 100 MG CAPSULE PO SCH ×2 (09:11→18:11)
[2020-08-30] MEDS: POTASSIUM CHLORIDE 20 MEQ PACKET PO SCH (09:12)
[2020-08-30] MEDS: METOPROLOL SUCCINATE 25 MG TAB.SR.24H PO SCH ×2 (09:16→22:15)
[2020-08-30] MEDS: ACYCLOVIR 200 MG CAPSULE PO SCH (09:22)
[2020-08-30] MEDS ORDERED: (PENDING PHARMACY ID) (Olanzapine [Olanzapine] 10 MG Tablet) PO SCH (10:00)
[2020-08-30] MEDS: POTASSI CL 20 MEQ/50 ML RIDER 20 MEQ/50 ML RTUPB IV SCH ×3 (10:22→14:31)
[2020-08-30] MEDS: OLANZAPINE 5 MG TABLET PO SCH (10:26)
[2020-08-30] MEDS: DRONABINOL 2.5 MG CAPSULE PO PRN (11:00)
[2020-08-30] MEDS: DEXTROSE 5%-NORMAL SALINE 1,000 ML IV PRN (13:56)
[2020-08-30] MEDS: CEFEPIME HCL 2 GM in DEXTROSE 5%-WATER 50 ML IV SCH ×2 (16:33→22:16)
--- NOTE | 2020-08-30 20:02 | PDOC PROGRESS REPORT ---
Subjective Date:: 08/30/20 Subjective:: RONY PERDOMO is a 59 year old female, diagnosed case of multiple myeloma rec eiving chemo, hypothyroidism who was brought in via EMS due to failure to thrive. Patient got her last dose of chemo last Sunday in addition to a blood transfusion. And according to her son since then she has been very weak, lethargic with poor appetite, cough. No fever no shortness of breath no diarrhea. She was also apparently exposed to a sister that was recently diagnosed with Covid. EMS noted that her blood pressure was low at systolic of 70s. In the ED blood pressure 87/69, heart rate of 142, temp 97.8, O2 sat 100% on room air. CBC showed WBC count of 5.6, hemoglobin 9.3, platelet count of 27. CMP showed GIANFRANCO with a creatinine of 2.3. Chest x-ray showed possible right upper lobe pneumonia. She was given 2 IV boluses and was started on Levaquin in the ED. According to the ED physician Dr. Marvin was consulted in the ED and apparently he is planning on speaking to the family about transitioning the patient to hospice since she is not responding to multiple myeloma treatments. I also talked to her son about hospice care and he agrees. However he stated that the patient is not agreeable to hospice. D2 hospital stay 08/27/20 She was seen and examined at bedside. She appears less dehydrated but still confused, weak and frail looking. COVID test still pending. Dr. Marquez saw her today and recommended continued management and she will discuss with her family possible going into hospice. Creatinine has normalized. D3 hospital stay 08/28/20. Still very confused and barely eating any food. Updated roberto her son about current condition. D4 hospital stay 08/29/20. No significant change, denies any pain. has episodes of PVC in bigeminy. I have reached out to Dr. Marquez regarding her clinical deterioration and FULL code status. I am worried that she may code anytime and have CPR performed on her which will be futile since she has terminal cancer. Dr. Marquez who is her PCP will attempt to talk to her and her son again tomorrow. D5 hospital stay 08/30/20. No new complaints. Still confused with poor appetite. Spoke to roberto her son again today and he is now considering enrolling her to hospice. I have asked KJ from discharge planning to give him resources so he can make an informed decision. patients electrolytes continued to be low despite IV and oral replacement. Reason For Visit: FAILURE TO THRIVE Physical Exam Vital Signs: Temp Pulse Resp BP Pulse Ox 98.0 F 127 H 36 H 117/82 100 08/30/20 11:32 08/30/20 14:00 08/30/20 11:32 08/30/20 11:32 08/30/20 11:32 Intake & Output 08/29/20 08/30/20 08/31/20 06:59 06:59 06:59 Intake Total 2800 1570 2338 Output Total 1500 1800 225 Balance 1300 -230 2113 Weight 74 kg 74 kg 74 kg General appearance: PRESENT: no acute distress, cooperative, thin Head exam: PRESENT: atraumatic, normocephalic Eye exam: PRESENT: EOMI, PERRLA Mouth exam: PRESENT: moist Neck exam: PRESENT: full ROM Respiratory exam: PRESENT: clear to auscultation tai, symmetrical, unlabored Cardiovascular exam: PRESENT: RRR, +S1, +S2 GI/Abdominal exam: PRESENT: normal bowel sounds, soft. ABSENT: rebound, tenderness Extremities exam: ABSENT: joint swelling, pedal edema Musculoskeletal exam: ABSENT: deformity, tenderness Neurological exam: PRESENT: altered, oriented to person Psychiatric exam: PRESENT: flat affect, normal mood Skin exam: PRESENT: normal color Results Laboratory Results: 08/29/20 05:40 08/30/20 05:35 08/30/20 08/30/20 05:35 05:35 Sodium 145.1 H Potassium 2.9 L* Chloride 116 H Carbon Dioxide 18 L Anion Gap 11 BUN 13 Creatinine 0.43 L Est GFR ( Amer) > 60 Glucose 120 H Calcium 7.5 L Magnesium 1.8 Total Bilirubin 0.5 AST 65 H Alkaline Phosphatase 54 Total Protein 5.0 L Albumin 2.4 L 08/26/20 08/27/20 15:50 09:33 Troponin I 0.036 0.014 Impressions: Chest X-Ray 08/26/20 15:43 IMPRESSION: Right upper lobe airspace disease. In the appropriate setting this is consistent with pneumonia. Head MRI 08/29/20 00:00 IMPRESSION: Limited evaluation of postcontrast images due to motion. Within the limits of the exam there is no evidence of acute ischemia, mass, mass effect or intracranial hemorrhage. Mild chronic small vessel ischemic change. EVIDENCE OF ACUTE STROKE: NO. Assessment and Plan - Diagnosis (1) Failure to thrive in adult Is this a current diagnosis for this admission?: Yes Plan: -Patient is a diagnosed case of multiple myeloma has recently undergone chemo coming in due to generalized weakness, poor appetite -Weak and frail looking, -Creatinine 2.3>1.23>0.47 -This is secondary to her multiple myeloma -continue IV fluids -Dietary consult -Oncology following. Based on history and according to her son it seems that she has stopped responding to treatment and Dr. Marquez has discussed hospice with him in the outpatient setting. She is hospice appropriate. (2) Multiple myeloma Qualifiers: Multiple myeloma remission status: in relapse Qualified Code(s): C90.02 - Multiple myeloma in relapse Is this a current diagnosis for this admission?: Yes Plan: -Diagnosed in 2013 status post autologous stem cell transplant - Most recently, she was started on Xpovio 100 mg po q 7 days and Dexamethasone 20 mg po q 7 days in Jun of this year. -Currently receiving chemo but not responding last dose Sunday. -Oncology consulted. - she is hospice appropriate and her son is now considering enrolling her to hospice. (3) Pneumonia Qualifiers: Pneumonia type: due to unspecified organism Laterality: right Lung location: upper lobe of lung Qualified Code(s): J18.9 - Pneumonia, unspecified organism Is this a current diagnosis for this admission?: Yes Plan: -Been having cough but no fever at home. -WBC count 5.6>6.2 -Recent Covid exposure according to her son -Chest x-ray showing right upper lobe airspace disease -on cefepime due to immunocompromised status. abx can be discontinued once they have decided hospice -Culture negative -Covid test negative (4) Acute kidney injury Is this a current diagnosis for this admission?: Yes Plan: - RESOLVED -Creatinine 2.37>1.23 from a baseline of 0.85 -This is likely prerenal secondary to poor oral intake -Continue IV fluids - continue to monitor CMP (5) Anemia Qualifiers: Anemia type: bone marrow failure Bone marrow failure anemia type: unspecified bone marrow failure Qualified Code(s): D61.9 - Aplastic anemia, unspecified Is this a current diagnosis for this admission?: Yes Plan: -Has chronic anemia secondary to multiple myeloma -Hemoglobin 9.3, baseline of 11 -On Eliquis for atrial fibrillation -No obvious source of bleeding -We will monitor CBC daily (6) Hypotension Qualifiers: Hypotension type: unspecified hypotension type Qualified Code(s): I95.9 - Hypotension, unspecified Is this a current diagnosis for this admission?: Yes Plan: - resolved ctm (7) Malnutrition Qualifiers: Malnutrition type: protein-calorie malnutrition Protein-calorie malnutrition severity: moderate Qualified Code(s): E44.0 - Moderate protein- calorie malnutrition Is this a current diagnosis for this admission?: Yes Plan: -Secondary to poor oral intake and ongoing malignancy - marinol -Dietary consult (8) Thrombocytopenia Is this a current diagnosis for this admission?: Yes Plan: -Platelet count 27>25>30 no obvious signs of bleeding -likely secondary to her chemo and multiple myeloma -We will continue to monitor no indication for platelet transfusion at this time - SCD for DVT prophylaxis (9) Hypothyroidism Qualifiers: Hypothyroidism type: unspecified Qualified Code(s): E03.9 - Hypothyroidism, unspecified Is this a current diagnosis for this admission?: Yes Plan: -Levothyroxine resumed (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
[2020-08-30] MEDS: MELATONIN 3 MG TABLET PO SCH (22:15)
[2020-08-31] MEDS: CEFEPIME HCL 2 GM in DEXTROSE 5%-WATER 50 ML IV SCH (05:34)
[2020-08-31] MEDS: LEVOTHYROXINE SODIUM 0.025 MG TABLET PO SCH (05:34)
[2020-08-31 07:52] LABS: HEMATOCRIT 23.8 % (36.0-47.0); MEAN CORPUSCULAR HEMOGLOBIN 31.9 pg (27.0-33.4); MEAN CORPUSCULAR HGB CONC 33.6 g/dL (32.0-36.0); MEAN CORPUSCULAR VOLUME 95 fl (80-97); RED CELL DISTRIBUTION WIDTH 16.6 % (11.5-14.0); WHITE BLOOD COUNT 3.7 10^3/uL (4.0-10.5)
[2020-08-31 07:55] LABS: ALBUMIN 2.4 g/dL (3.5-5.0); ALKALINE PHOSPHATASE 53 U/L (38-126); ANION GAP 9 (5-19); ASPARTATE AMINO TRANSFERASE 70 U/L (14-36); BILIRUBIN,DIRECT 0.1 mg/dL (0.0-0.4); BILIRUBIN,TOTAL 0.4 mg/dL (0.2-1.3); BLOOD UREA NITROGEN 13 mg/dL (7-20); CALCIUM 7.9 mg/dL (8.4-10.2); CARBON DIOXIDE 17 mmol/L (22-30); CHLORIDE 120 mmol/L (98-107); GLUCOSE 114 mg/dL (75-110); POTASSIUM 3.8 mmol/L (3.6-5.0); TOTAL PROTEIN 5.3 g/dL (6.3-8.2)
[2020-08-31 08:23] LABS: ABSOLUTE LYMPHOCYTES# (MANUAL) 0.2 10^3/uL (0.5-4.7); ABSOLUTE MONOCYTES # (MANUAL) 0.1 10^3/uL (0.1-1.4); BASOPHILS % (MANUAL) 0 % (0-2); EOSINOPHILS % (MANUAL) 0 % (0-6); LYMPHOCYTES % (MANUAL) 6 % (13-45); MONOCYTES % (MANUAL) 3 % (3-13); SEGMENTED NEUTROPHILS % (MAN) 91 % (42-78); TOTAL CELLS COUNTED 100
[2020-08-31 08:27] LABS: ANISOCYTOSIS 1+; PLATELET COMMENT DECREASED; POIKILOCYTOSIS SLIGHT; SCHISTOCYTES SLIGHT; TARGET CELLS SLIGHT
--- NOTE | 2020-08-31 08:42 | PDOC PROGRESS REPORT ---
Subjective Date:: 08/31/20 Subjective:: Patient has no new complaints. She is still slow to respond to all questions. However, she states very clearly that she is ready for discharge. I explained to her that her family was still discussing this and she should tell them that she would like to come home. Reason For Visit: FAILURE TO THRIVE Physical Exam Vital Signs: Temp Pulse Resp BP Pulse Ox 98.1 F 120 H 16 123/89 H 100 08/31/20 07:43 08/31/20 07:00 08/30/20 23:20 08/30/20 23:20 08/30/20 23:20 Intake & Output 08/30/20 08/31/20 09/01/20 06:59 06:59 06:59 Intake Total 1570 2458 Output Total 1800 1125 Balance -230 1333 Weight 74 kg 74 kg General appearance: PRESENT: no acute distress Head exam: PRESENT: normocephalic Eye exam: PRESENT: EOMI Respiratory exam: PRESENT: unlabored Extremities exam: ABSENT: pedal edema Musculoskeletal exam: PRESENT: normal inspection Neurological exam: PRESENT: alert, awake Psychiatric exam: PRESENT: flat affect Skin exam: PRESENT: normal color Results Laboratory Results: 08/31/20 05:30 08/30/20 08/31/20 08/31/20 05:35 05:30 05:30 Seg Neutrophils % Not Reportable Sodium 145.7 H Potassium 3.8 Chloride 120 H Carbon Dioxide 17 L Anion Gap 9 BUN 13 Creatinine 0.41 L Est GFR ( Amer) > 60 Glucose 114 H Calcium 7.9 L Magnesium 1.8 Total Bilirubin 0.4 AST 70 H Alkaline Phosphatase 53 Total Protein 5.3 L Albumin 2.4 L 08/26/20 08/27/20 15:50 09:33 Troponin I 0.036 0.014 Impressions: Chest X-Ray 08/26/20 15:43 IMPRESSION: Right upper lobe airspace disease. In the appropriate setting this is consistent with pneumonia. Head MRI 08/29/20 00:00 IMPRESSION: Limited evaluation of postcontrast images due to motion. Within the limits of the exam there is no evidence of acute ischemia, mass, mass effect or intracranial hemorrhage. Mild chronic small vessel ischemic change. EVIDENCE OF ACUTE STROKE: NO. Assessment & Plan - Diagnosis (1) Multiple myeloma Qualifiers: Multiple myeloma remission status: in relapse Qualified Code(s): C90.02 - Multiple myeloma in relapse Is this a current diagnosis for this admission?: Yes Plan: We again discussed discharge home with Hospice services. She requests this [facility]ER[facility]. I have not heard back from family. I will be happy to help arrange this [facility]. Please call if any concerns. - Time Time Spent with patient: Less than 15 minutes
[2020-08-31 08:57] LABS: PLATELET COUNT 28 10^3/uL (150-450)
[2020-08-31] MEDS: DRONABINOL 2.5 MG CAPSULE PO PRN (09:11)
[2020-08-31] MEDS: HYDROMORPHONE HCL INJ/PF 2 MG/ML AMPULE IV PRN (09:11)
[2020-08-31] MEDS: FAMOTIDINE INJ/PF 20 MG/2 ML SDV IV SCH ×2 (09:11→23:16)
[2020-08-31] MEDS: OLANZAPINE 5 MG TABLET PO SCH (09:11)
[2020-08-31] MEDS: METOPROLOL SUCCINATE 25 MG TAB.SR.24H PO SCH ×3 (09:11→23:16)
[2020-08-31] MEDS: POTASSIUM CHLORIDE 20 MEQ PACKET PO SCH (09:12)
[2020-08-31] MEDS: DULOXETINE HCL 30 MG CAPSULE.DR PO SCH (09:12)
[2020-08-31] MEDS: MAGNESIUM OXIDE 400 MG TABLET PO SCH (09:12)
[2020-08-31] MEDS: DOCUSATE SODIUM 100 MG CAPSULE PO SCH ×2 (09:12→18:18)
[2020-08-31] MEDS: APIXABAN 5 MG TABLET PO SCH ×3 (09:25→23:16)
[2020-08-31] MEDS: ACYCLOVIR 200 MG CAPSULE PO SCH (09:26)
[2020-08-31] MEDS ORDERED: CEFUROXIME 500 MG TABLET PO SCH (10:00)
[2020-08-31] MEDS: DEXTROSE 5%-NORMAL SALINE 1,000 ML IV PRN (18:19)
[2020-08-31] MEDS: CEFUROXIME 500 MG TABLET PO SCH (18:21)
--- NOTE | 2020-08-31 21:32 | PDOC PROGRESS REPORT ---
Subjective Reason For Visit: FAILURE TO THRIVE Physical Exam Vital Signs: Temp Pulse Resp BP Pulse Ox 97.4 F 131 H 14 117/90 H 99 08/31/20 08:44 08/31/20 08:44 08/31/20 08:44 08/31/20 08:44 08/31/20 08:44 Intake & Output 08/30/20 08/31/20 09/01/20 06:59 06:59 06:59 Intake Total 1570 3458 250 Output Total 1800 1125 300 Balance -230 2333 -50 Weight 74 kg 74 kg 73.1 kg General appearance: PRESENT: no acute distress, cooperative, thin Head exam: PRESENT: atraumatic, normocephalic Eye exam: PRESENT: EOMI, PERRLA Mouth exam: PRESENT: moist Neck exam: PRESENT: full ROM Respiratory exam: PRESENT: clear to auscultation tai, symmetrical, unlabored Cardiovascular exam: PRESENT: RRR, +S1, +S2 GI/Abdominal exam: PRESENT: normal bowel sounds, soft. ABSENT: rebound, tenderness Extremities exam: PRESENT: full ROM Musculoskeletal exam: PRESENT: full ROM Neurological exam: PRESENT: altered, awake, oriented to person. ABSENT: oriented to place, oriented to time, oriented to situation Psychiatric exam: PRESENT: normal mood Skin exam: PRESENT: normal color Results Laboratory Results: 08/31/20 05:30 08/31/20 05:30 08/31/20 08/31/20 05:30 05:30 WBC 3.7 L RBC 2.50 L Hgb 8.0 L Hct 23.8 L MCV 95 MCH 31.9 MCHC 33.6 RDW 16.6 H Plt Count 28 L* Seg Neutrophils % Not Reportable Sodium 145.7 H Potassium 3.8 Chloride 120 H Carbon Dioxide 17 L Anion Gap 9 BUN 13 Creatinine 0.41 L Est GFR ( Amer) > 60 Glucose 114 H Calcium 7.9 L Total Bilirubin 0.4 AST 70 H Alkaline Phosphatase 53 Total Protein 5.3 L Albumin 2.4 L 08/26/20 17:05 Blood Blood Culture - Final NO GROWTH IN 5 DAYS 08/26/20 15:50 Blood Blood Culture - Final NO GROWTH IN 5 DAYS 08/26/20 08/27/20 15:50 09:33 Troponin I 0.036 0.014 Impressions: Chest X-Ray 08/26/20 15:43 IMPRESSION: Right upper lobe airspace disease. In the appropriate setting this is consistent with pneumonia. Head MRI 08/29/20 00:00 IMPRESSION: Limited evaluation of postcontrast images due to motion. Within the limits of the exam there is no evidence of acute ischemia, mass, mass effect or intracranial hemorrhage. Mild chronic small vessel ischemic change. EVIDENCE OF ACUTE STROKE: NO. Assessment and Plan - Diagnosis (1) Failure to thrive in adult Is this a current diagnosis for this admission?: Yes Plan: -Patient is a diagnosed case of multiple myeloma has recently undergone chemo coming in due to generalized weakness, poor appetite -Weak and frail looking, -Creatinine 2.3>1.23>0.47 -This is secondary to her multiple myeloma -continue IV fluids -Dietary consult -Oncology following. - awaiting hospice placement (2) Multiple myeloma Qualifiers: Multiple myeloma remission status: in relapse Qualified Code(s): C90.02 - Multiple myeloma in relapse Is this a current diagnosis for this admission?: Yes Plan: -Diagnosed in 2013 status post autologous stem cell transplant - Most recently, she was started on Xpovio 100 mg po q 7 days and Dexamethasone 20 mg po q 7 days in Jun of this year. -Currently receiving chemo but not responding last dose Sunday. -Oncology consulted. - she is hospice appropriate and her son is now considering enrolling her to hospice. (3) Pneumonia Qualifiers: Pneumonia type: due to unspecified organism Laterality: right Lung location: upper lobe of lung Qualified Code(s): J18.9 - Pneumonia, unspecified organism Is this a current diagnosis for this admission?: Yes Plan: -Been having cough but no fever at home. -WBC count 5.6>6.2 -Recent Covid exposure according to her son -Chest x-ray showing right upper lobe airspace disease -switched to oral abx. discontinue if she goes to hospice -Culture negative -Covid test negative (4) Acute kidney injury Is this a current diagnosis for this admission?: Yes Plan: - RESOLVED -Creatinine 2.37>1.23 from a baseline of 0.85 -This is likely prerenal secondary to poor oral intake -Continue IV fluids (5) Anemia Qualifiers: Anemia type: bone marrow failure Bone marrow failure anemia type: unspecified bone marrow failure Qualified Code(s): D61.9 - Aplastic anemia, unspecified Is this a current diagnosis for this admission?: Yes Plan: -Has chronic anemia secondary to multiple myeloma -Hemoglobin 9.3, baseline of 11 -On Eliquis for atrial fibrillation -No obvious source of bleeding - lab draws stopped (6) Hypotension Qualifiers: Hypotension type: unspecified hypotension type Qualified Code(s): I95.9 - Hypotension, unspecified Is this a current diagnosis for this admission?: Yes Plan: - resolved ctm (7) Malnutrition Qualifiers: Malnutrition type: protein-calorie malnutrition Protein-calorie malnutrition severity: moderate Qualified Code(s): E44.0 - Moderate protein- calorie malnutrition Is this a current diagnosis for this admission?: Yes Plan: -Secondary to poor oral intake and ongoing malignancy - marinol -Dietary consult (8) Thrombocytopenia Is this a current diagnosis for this admission?: Yes Plan: -Platelet count 27>25>30 no obvious signs of bleeding -likely secondary to her chemo and multiple myeloma - SCD for DVT prophylaxis (9) Hypothyroidism Qualifiers: Hypothyroidism type: unspecified Qualified Code(s): E03.9 - Hypothyroidism, unspecified Is this a current diagnosis for this admission?: Yes Plan: -Levothyroxine resumed (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
[2020-08-31] MEDS: MELATONIN 3 MG TABLET PO SCH (23:16)
[2020-09-01] MEDS: CEFUROXIME 500 MG TABLET PO SCH (06:00)
[2020-09-01] MEDS: LEVOTHYROXINE SODIUM 0.025 MG TABLET PO SCH (06:00)
--- NOTE | 2020-09-01 08:47 | PDOC PROGRESS REPORT ---
Subjective Date:: 09/01/20 Subjective:: Patient states that they are not doing what she asks. She wants to go home. Sh debbie does not want a Lopez catheter in. She does not want to take any more treatments, she just wants to go home. Reason For Visit: FAILURE TO THRIVE Physical Exam Vital Signs: Temp Pulse Resp BP Pulse Ox 97.6 F 127 H 16 132/94 H 100 08/31/20 23:51 08/31/20 23:51 08/31/20 23:51 08/31/20 23:51 08/31/20 23:51 Intake & Output 08/31/20 09/01/20 09/02/20 06:59 06:59 06:59 Intake Total 3458 370 Output Total 1125 1500 Balance 2333 -1130 Weight 74 kg 74 kg General appearance: PRESENT: no acute distress Head exam: PRESENT: normocephalic Eye exam: PRESENT: EOMI Respiratory exam: PRESENT: unlabored Extremities exam: PRESENT: full ROM Neurological exam: PRESENT: alert, awake, oriented to person, oriented to place, oriented to situation Psychiatric exam: PRESENT: appropriate affect Skin exam: PRESENT: normal color Results Laboratory Results: 08/31/20 05:30 08/31/20 05:30 08/31/20 05:30 WBC 3.7 L RBC 2.50 L Hgb 8.0 L Hct 23.8 L MCV 95 MCH 31.9 MCHC 33.6 RDW 16.6 H Plt Count 28 L* 08/27/20 04:50 Blood Blood Culture - Final NO GROWTH IN 5 DAYS 08/26/20 17:05 Blood Blood Culture - Final NO GROWTH IN 5 DAYS 08/26/20 15:50 Blood Blood Culture - Final NO GROWTH IN 5 DAYS 08/26/20 08/27/20 15:50 09:33 Troponin I 0.036 0.014 Impressions: Chest X-Ray 08/26/20 15:43 IMPRESSION: Right upper lobe airspace disease. In the appropriate setting this is consistent with pneumonia. Head MRI 08/29/20 00:00 IMPRESSION: Limited evaluation of postcontrast images due to motion. Within the limits of the exam there is no evidence of acute ischemia, mass, mass effect or intracranial hemorrhage. Mild chronic small vessel ischemic change. EVIDENCE OF ACUTE STROKE: NO. Assessment & Plan - Diagnosis (1) Multiple myeloma Qualifiers: Multiple myeloma remission status: in relapse Qualified Code(s): C90.02 - Multiple myeloma in relapse Is this a current diagnosis for this admission?: Yes Plan: I spoke with patient and her 2 children at length today. They are all in agreement that she will be safe to go home with Hospice services. She has said that she wants to be DNR. Family agrees. I also spoke with discharge planners and with [facility]. However, no one knows exactly what we are waiting on as far as discharge home. I will DC Lopez cath and change her code status. I will also stop some unnecessary meds and make her comfort measures only until discharge to Hospice can be arranged. - Time Time Spent with patient: 25-34 minutes
[2020-09-01] MEDS: OLANZAPINE 5 MG TABLET PO SCH (10:13)
[2020-09-01] MEDS: DULOXETINE HCL 30 MG CAPSULE.DR PO SCH (10:13)
[2020-09-01] MEDS: DOCUSATE SODIUM 100 MG CAPSULE PO SCH ×2 (10:13→17:02)
[2020-09-01] MEDS: METOPROLOL SUCCINATE 25 MG TAB.SR.24H PO SCH (10:13)
--- NOTE | 2020-09-01 12:02 | PDOC DISCHARGE SUMMARY ---
Impression - Admit/DC Date/PCP Admission Date/Primary Care Provider: 08/26/20 19:20 SRIRAM GRACE MD Discharge Date: 09/01/20 - Discharge Diagnosis (1) End of life care Is this a current diagnosis for this admission?: Yes (2) Acute kidney injury Is this a current diagnosis for this admission?: Yes (3) Anemia Is this a current diagnosis for this admission?: Yes (4) Failure to thrive in adult Is this a current diagnosis for this admission?: Yes (5) Malnutrition Is this a current diagnosis for this admission?: Yes (6) Protein-calorie malnutrition, moderate Is this a current diagnosis for this admission?: Yes (7) Multiple myeloma Is this a current diagnosis for this admission?: Yes - Additional Information Resuscitation Status: Do Not Resuscitate Discharge Activity: Activity As Tolerated Referrals: SRIRAM GRACE MD [Primary Care Provider] - Follow up as needed Home Medications: Gabapentin [Neurontin 300 mg Capsule] 900 mg PO DAILY 10/16/17 Dexlansoprazole [Dexilant 30 mg Capsule] 30 mg PO DAILY 08/27/20 Megestrol Acetate [Megace Meg 400 mg/10 ml Udcup] 625 mg PO DAILY 08/27/20 Melatonin [Melatonin 3 mg Tablet] 3 mg PO QHS 08/27/20 Metoprolol Succinate [Toprol Xl 25 mg Tab.sr] 25 mg PO Q12 08/27/20 Olanzapine 10 mg PO DAILY 08/27/20 Omeprazole 40 mg PO DAILY 08/27/20 Oxycodone HCl [Oxy-Ir 5 mg Tablet] 10 mg PO Q4HP PRN 08/27/20 Oxycodone Myristate [Xtampza ER] 18 mg PO Q12 08/27/20 Oxycodone Myristate [Xtampza ER] 36 mg PO Q12 08/27/20 Acetaminophen [Tylenol 325 mg Tablet] 650 mg PO Q4HP PRN tablet 09/01/20 History of Present Illiness History of Present Illness: RONY PERDOMO is a 59 year old female This patient presents to the hospital due to failure to thrive. She had been receiving chemotherapy for multiple myeloma. She was admitted with hypotension as well as tachycardia. She was found to have an acute kidney injury and so was admitted for further management. Hospital Course Hospital Course: Patient was treated with intravenous fluid and was started on antibiotics. She was ultimately seen by oncology as she had been on chemotherapy status post bone marrow transplant for multiple myeloma. It was felt that patient had become resistant and was not responding to treatment for multiple myeloma. After numerous discussions including the oncologist as well as family members and hospitalist patient was made hospice care and at this moment the plan is for her to be discharged home with hospice. Most of her regular medications have been discontinued for text Physical Exam Vital Signs: Temp Pulse Resp BP Pulse Ox 97.6 F 122 H 16 118/75 100 09/01/20 10:00 09/01/20 08:53 09/01/20 08:53 09/01/20 08:53 09/01/20 08:53 Intake & Output 08/31/20 09/01/20 09/02/20 06:59 06:59 06:59 Intake Total 3458 370 1000 Output Total 1125 1500 Balance 2333 -1130 1000 Weight 74 kg 74 kg General appearance: PRESENT: no acute distress, thin, other - Poorly nourished Head exam: PRESENT: atraumatic, normocephalic Eye exam: PRESENT: EOMI. ABSENT: scleral icterus Mouth exam: PRESENT: tongue midline Neck exam: ABSENT: carotid bruit, JVD, lymphadenopathy, thyromegaly Respiratory exam: PRESENT: clear to auscultation tai. ABSENT: rales, rhonchi, wheezes Cardiovascular exam: PRESENT: RRR. ABSENT: diastolic murmur, rubs, systolic murmur Pulses: PRESENT: normal dorsalis pedis pul GI/Abdominal exam: PRESENT: normal bowel sounds, soft. ABSENT: distended, guarding, mass, organolmegaly, rebound, tenderness Rectal exam: PRESENT: deferred Extremities exam: PRESENT: full ROM. ABSENT: calf tenderness, clubbing, pedal edema Neurological exam: PRESENT: alert, awake, oriented to person, oriented to place, oriented to time, oriented to situation. ABSENT: motor sensory deficit Psychiatric exam: PRESENT: appropriate affect. ABSENT: homicidal ideation, suicidal ideation Skin exam: PRESENT: dry, intact, warm. ABSENT: cyanosis, rash Results Laboratory Results: WBC 3.7 10^3/uL (4.0-10.5) L 08/31/20 05:30 RBC 2.50 10^6/uL (3.72-5.28) L 08/31/20 05:30 Hgb 8.0 g/dL (12.0-15.5) L 08/31/20 05:30 Hct 23.8 % (36.0-47.0) L 08/31/20 05:30 MCV 95 fl (80-97) 08/31/20 05:30 MCH 31.9 pg (27.0-33.4) 08/31/20 05:30 MCHC 33.6 g/dL (32.0-36.0) 08/31/20 05:30 RDW 16.6 % (11.5-14.0) H 08/31/20 05:30 Plt Count 28 10^3/uL (150-450) L* 08/31/20 05:30 Lymph % (Auto) Not Reportable 08/31/20 05:30 [place] % (Auto) Not Reportable 08/31/20 05:30 Eos % (Auto) Not Reportable 08/31/20 05:30 Baso % (Auto) Not Reportable 08/31/20 05:30 Absolute Neuts (auto) Not Reportable 08/31/20 05:30 Absolute Lymphs (auto) Not Reportable 08/31/20 05:30 Absolute Monos (auto) Not Reportable 08/31/20 05:30 Absolute Eos (auto) Not Reportable 08/31/20 05:30 Absolute Basos (auto) Not Reportable 08/31/20 05:30 Total Counted 100 08/31/20 05:30 Seg Neutrophils % Not Reportable 08/31/20 05:30 Seg Neuts % (Manual) 91 % (42-78) H 08/31/20 05:30 Band Neutrophils % 4 % (3-5) 08/28/20 05:20 Lymphocytes % (Manual) 6 % (13-45) L 08/31/20 05:30 Monocytes % (Manual) 3 % (3-13) 08/31/20 05:30 Eosinophils % (Manual) 0 % (0-6) 08/31/20 05:30 Basophils % (Manual) 0 % (0-2) 08/31/20 05:30 Abs Neuts (Manual) 3.4 10^3/uL (1.7-8.2) 08/31/20 05:30 Abs Lymphs (Manual) 0.2 10^3/uL (0.5-4.7) L 08/31/20 05:30 Abs Monocytes (Manual) 0.1 10^3/uL (0.1-1.4) 08/31/20 05:30 Absolute Eos (Manual) 0.0 10^3/uL (0.0-0.6) 08/31/20 05:30 Abs Basophils (Manual) 0.0 10^3/uL (0.0-0.2) 08/31/20 05:30 Toxic Granulation SLIGHT 08/28/20 05:20 Toxic Vacuolation PRESENT 08/28/20 05:20 Dohle Bodies PRESENT 08/28/20 05:20 Platelet Comment DECREASED 08/31/20 05:30 Polychromasia SLIGHT 08/27/20 04:50 Poikilocytosis SLIGHT 08/31/20 05:30 Anisocytosis 1+ 08/31/20 05:30 Target Cells SLIGHT 08/31/20 05:30 Tear Drop Cells SLIGHT 08/27/20 04:50 Ovalocytes SLIGHT 08/29/20 05:40 Schistocytes SLIGHT 08/31/20 05:30 PT 35.6 SEC (11.4-15.4) H 08/26/20 15:50 INR 3.60 08/26/20 15:50 VBG pH 7.36 (7.30-7.42) 08/26/20 17:05 VBG pCO2 31.6 mmHg (35-63) L 08/26/20 17:05 VBG HCO3 17.4 mmol/L (20-32) L 08/26/20 17:05 VBG Base Excess -6.6 mmol/L 08/26/20 17:05 Sodium 145.7 mmol/L (137-145) H 08/31/20 05:30 Potassium 3.8 mmol/L (3.6-5.0) 08/31/20 05:30 Chloride 120 mmol/L (98-107) H 08/31/20 05:30 Carbon Dioxide 17 mmol/L (22-30) L 08/31/20 05:30 Anion Gap 9 (5-19) 08/31/20 05:30 BUN 13 mg/dL (7-20) 08/31/20 05:30 Creatinine 0.41 mg/dL (0.52-1.25) L 08/31/20 05:30 Est GFR ( Amer) > 60 (>60) 08/31/20 05:30 Est GFR (MDRD) Non-Af > 60 (>60) 08/31/20 05:30 Glucose 114 mg/dL (75-110) H 08/31/20 05:30 POC Glucose 139 mg/dL (70-110) H 08/26/20 16:06 Lactic Acid 1.1 mmol/L (0.7-2.1) 08/27/20 04:50 Calcium 7.9 mg/dL (8.4-10.2) L 08/31/20 05:30 Phosphorus 2.7 mg/dL (2.5-4.5) 08/27/20 04:50 Magnesium 1.8 mg/dL (1.6-2.3) 08/30/20 05:35 Total Bilirubin 0.4 mg/dL (0.2-1.3) 08/31/20 05:30 Direct Bilirubin 0.1 mg/dL (0.0-0.4) 08/31/20 05:30 Neonat Total Bilirubin Not Reportable 08/31/20 05:30 Neonat Direct Bilirubin Not Reportable 08/31/20 05:30 Neonat Indirect Bili Not Reportable 08/31/20 05:30 AST 70 U/L (14-36) H 08/31/20 05:30 ALT 53 U/L (<35) H 08/31/20 05:30 Alkaline Phosphatase 53 U/L (38-126) 08/31/20 05:30 Troponin I 0.014 ng/mL 08/27/20 09:33 Total Protein 5.3 g/dL (6.3-8.2) L 08/31/20 05:30 Albumin 2.4 g/dL (3.5-5.0) L 08/31/20 05:30 TSH 1.09 uIU/mL (0.47-4.68) 08/27/20 04:50 Urine Color YELLOW 08/26/20 16:27 Urine Appearance SLIGHTLY-CLOUDY 08/26/20 16:27 Urine pH 5.0 (5.0-9.0) 08/26/20 16:27 Ur Specific [place] 1.016 08/26/20 16:27 Urine Protein 100 mg/dL (NEGATIVE) H 08/26/20 16:27 Urine Glucose (UA) NEGATIVE mg/dL (NEGATIVE) 08/26/20 16:27 Urine Ketones NEGATIVE mg/dL (NEGATIVE) 08/26/20 16:27 Urine Blood MODERATE (NEGATIVE) H 08/26/20 16:27 Urine Nitrite (Reflex) NEGATIVE (NEGATIVE) 08/26/20 16:27 Urine Bilirubin NEGATIVE (NEGATIVE) 08/26/20 16:27 Urine Urobilinogen NEGATIVE mg/dL (<2.0) 08/26/20 16:27 Leukocyte Esterase Rfl NEGATIVE (NEGATIVE) 08/26/20 16:27 Urine RBC (Auto) 3 /HPF 08/26/20 16:27 U Hyaline Cast (Auto) 2 /LPF 08/26/20 16:27 Urine Bacteria (Auto) TRACE /HPF 08/26/20 16:27 Urine WBC (Reflex) 2 /HPF 08/26/20 16:27 Squamous Epi Cells Auto 1 /HPF 08/26/20 16:27 Urine Mucus (Auto) RARE /LPF 08/26/20 16:27 Urine Ascorbic Acid NEGATIVE (NEGATIVE) 08/26/20 16:27 COVID-19 Source See comment 08/26/20 19:33 COVID-19 ([facility]) Not Detected (Not Detect) 08/26/20 19:33 Slides for Path Review PATHOLOGIST REVIEWED 08/26/20 15:50 08/26/20 08/27/20 15:50 09:33 Troponin I 0.036 0.014 Impressions: Chest X-Ray 08/26/20 15:43 IMPRESSION: Right upper lobe airspace disease. In the appropriate setting this is consistent with pneumonia. Head MRI 08/29/20 00:00 IMPRESSION: Limited evaluation of postcontrast images due to motion. Within the limits of the exam there is no evidence of acute ischemia, mass, mass effect or intracranial hemorrhage. Mild chronic small vessel ischemic change. EVIDENCE OF ACUTE STROKE: NO. Plan Time Spent: Less than 30 Minutes Stroke Is this a Stroke Patient?: No Acute Heart Failure Is this a Heart Failure Patient?: No
[2020-09-01 17:05] VITALS: BP 96/69
== END 2020-09-01 18:20 | disposition hospice, home (50) | DRG 682 ==
LOC: ER 15:37 → EH 19:20 → 3N 21:30 → 3W 08-27 20:43 → 4S 08-28 14:38
PROVIDERS: ADMIT Internal Medicine; ATTEND Internal Medicine
DX: N17.9 Acute kidney failure, unspecified (principal); J18.9 Pneumonia, unspecified organism; C90.00 Multiple myeloma not having achieved remission; E44.0 Moderate protein-calorie malnutrition; Z94.81 Bone marrow transplant status; D61.9 Aplastic anemia, unspecified; R62.7 Adult failure to thrive; Z66 Do not resuscitate; Z20.828 Contact with and (suspected) exposure to other viral communicable diseases; E86.0 Dehydration; E03.9 Hypothyroidism, unspecified; M19.90 Unspecified osteoarthritis, unspecified site; D69.59 Other secondary thrombocytopenia; I48.91 Unspecified atrial fibrillation; F32.9 Major depressive disorder, single episode, unspecified; Z79.899 Other long term (current) drug therapy; Z90.49 Acquired absence of other specified parts of digestive tract; Z87.891 Personal history of nicotine dependence; Z82.49 Family history of ischemic heart disease and other diseases of the circulatory system; Z83.3 Family history of diabetes mellitus; Z79.01 Long term (current) use of anticoagulants; Z79.890 Hormone replacement therapy; Z92.25 Personal history of immunosuppression therapy; Z68.21 Body mass index [BMI] 21.0-21.9, adult
CPT/HCPCS: 36415; 70553; 71045; 80053; 81001; 82803; 82962; 83605; 83735; 84100; 84443; 84484; 85025; 85610; 87040; 87635; 93005; 93010; 96361; 96365; 99285; A9270-GY; A9576; C9803; J0692; J1170; J1956; J3475; J3480; J3490; J7042; J7060; J7120; J7121; S0028